=== PATIENT | male | born 1970 | race Caucasian/White ===

== ENCOUNTER 2017-12-25 17:57 | Emergency (ER) | payer BC ==
[2017-12-25 20:28] LABS: Absolute Lymphocytes (CBC) 1.2 K/uL (0.7-4.9); Absolute Monocytes 0.5 K/uL (0.1-1.3); Absolute Neutrophil 3.8 K/uL (1.8-8.0); Basophils % 0.7 % (0-1.3); Eosinophils % 4.5 % (0-4.4); Hematocrit 44.3 % (39.6-49.0); MCH 32.4 pg (27.0-35.0); MCV 95.5 fL (80-100); MPV 8.7 fL (7.6-11.3); Monocytes % 8.8 % (3.3-12.3); RBC Red Blood Cell Count 4.64 M/uL (4.33-5.43)
[2017-12-25 20:32] LABS: Protime INR 1.01
[2017-12-25 20:35] LABS: ALT/SGPT 36 U/L (12-78); AST/SGOT 20 U/L (15-37); Albumin 3.8 g/dL (3.4-5.0); Alkaline Phosphatase 141 U/L (45-117); BUN Blood Urea Nitrogen 15 mg/dL (7-18); Bicarbonate 29 mmol/L (21-32); Bilirubin Direct 0.1 mg/dL (0-0.2); Bilirubin Total 0.5 mg/dL (0.2-1.0); CKMB Creatine Kinase MB < 1.0 ng/mL (0.3-3.6); Creatine Phosphokinase 91 U/L (39-308); Glucose Level 87 mg/dL (74-106); Lipase 167 U/L (73-393); Magnesium 2.2 mg/dL (1.8-2.4); NT PRO-BNP 28 pg/mL (<125); Potassium 4.1 mmol/L (3.5-5.1); Protein, Total 7.9 g/dL (6.4-8.2); Sodium Level 138 mmol/L (136-145); Troponin (Emerg Dept Use Only) < 0.02 ng/mL (0.0-0.045)
--- NOTE | 2017-12-25 20:51 | RAD REPORT ---
EXAM DESCRIPTION: RAD - Chest Single View - 12/25/2017 8:18 pm CLINICAL HISTORY: Left-sided and right-sided chest pain, hemoptysis, fever COMPARISON: August 2016 TECHNIQUE: AP portable chest image was obtained 2013 hours . FINDINGS: No focal infiltrate, mass or acute finding in the right hemithorax. Interstitial markings are prominent but unchanged. Postsurgical changes are present at the left hilum with left hilum eleva tion and left apex opacification. This is a stable presentation. Lung markings in the left lung field are similar to the comparison. Heart and vasculature are normal. No measurable pleural effusion and no pneumothorax. No acute bony abnormality seen. No acute aortic findings suspected. IMPRESSION: No acute cardiopulmonary process. The above detailed chest findings are similar to comparison.
[2017-12-25] MEDS ORDERED: ACETAMINOPHEN 500 MG TAB ONE (20:53)
[2017-12-26 00:04] LABS: Arterial Blood Carboxyhemoglob 1.2 % (0-1.5); Blood Gas Oxyhemoglobin 92.1 % (94-97); Blood O2 Saturation 94.2 % (92-98.5)
--- NOTE | 2017-12-26 00:59 | EDPHYS ---
Physician Documentation [facility] Name: Dheeraj Narvaez Age: 47 yrs Sex: Male : 1970 Arrival Date: 12/25/2017 Time: 17:59 Bed 20 Private MD: ED Physician Eddie Walters HPI: 12/26 01:17 This 47 yrs old Male presents to ER via Ambulatory with complaints of Chest tw4 Pain, Fever, Coughing Up Blood. 01:17 The patient or guardian reports chest pain that is located primarily in the chest tw4 diffusely. Onset: today. The pain does not radiate. Associated signs and symptoms: The patient has no apparent associated signs or symptoms. The chest pain is described as dull. Duration: The patient or guardian reports a single episode, that is now resolved. Modifying factors: The symptoms are alleviated by nothing. the symptoms are aggravated by nothing. Severity of pain: At its worst the pain was mild in the emergency department the pain is unchanged. The patient has not experienced similar symptoms in the past. Historical: - Allergies: 12/25 18:13 Decadron; sv - PMHx: 18:13 blood infection; C DIFF; cardiomegaly; pericarditis; Mx pneumothorax; EF 20%; sv aspergillis; - PSHx: 18:13 heart cath; lung surgeries; Lobectomy; 1/2 left lung removed; sv - Immunization history:: Flu vaccine is not up to date. - Social history:: Smoking status: Patient/guardian denies using tobacco. - Ebola Screening: : No symptoms or risks identified at this time. ROS: 12/26 01:17 Constitutional: Negative for fever, chills, and weight loss, Eyes: Negative for injury, tw4 pain, redness, and discharge, Abdomen/GI: Negative for abdominal pain, nausea, vomiting, diarrhea, and constipation, Back: Negative for injury and pain, : Negative for injury, bleeding, discharge, and swelling, MS/Extremity: Negative for injury and deformity, Skin: Negative for injury, rash, and discoloration, Neuro: Negative for headache, weakness, numbness, tingling, and seizure. Cardiovascular: Positive for chest pain, Negative for edema, orthopnea. Respiratory: Positive for cough, hemoptysis. Exam: 01:17 Constitutional: This is a well developed, well nourished patient who is awake, alert, tw4 and in no acute distress. Head/Face: Normocephalic, atraumatic. Chest/axilla: Normal chest wall appearance and motion. Nontender with no deformity. No lesions are appreciated. Cardiovascular: Regular rate and rhythm with a normal S1 and S2. No gallops, murmurs, or rubs. Normal PMI, no JVD. No pulse deficits. Respiratory: Lungs have equal breath sounds bilaterally, clear to auscultation and percussion. No rales, rhonchi or wheezes noted. No increased work of breathing, no retractions or nasal flaring. Abdomen/GI: Soft, non-tender, with normal bowel sounds. No distension or tympany. No guarding or rebound. No evidence of tenderness throughout. Back: No spinal tenderness. No costovertebral tenderness. Full range of motion. MS/ Extremity: Pulses equal, no cyanosis. Neurovascular intact. Full, normal range of motion. Neuro: Awake and alert, GCS 15, oriented to person, place, time, and situation. Cranial nerves II-XII grossly intact. Motor strength 5/5 in all extremities. Sensory grossly intact. Cerebellar exam normal. Normal gait. Vital Signs: 12/25 18:13 BP 125 / 74; Pulse 96; Resp 22; Temp 99.2; Pulse Ox 93% on R/A; Weight 71.67 kg; Height sv 6 ft. 0 in. (182.88 cm); Pain 8/10; 19:29 BP 130 / 76; Pulse 98; Resp 23 S; Pulse Ox 100% on Venturi mask; jd3 20:51 BP 118 / 80; Pulse 86; Resp 16 S; Temp 98.6(O); Pulse Ox 100% on Simple Mask; jd3 21:40 BP 120 / 80; Pulse 67; Resp 15 S; Pulse Ox 99% on Simple Mask; Pain 8/10; jd3 22:41 BP 129 / 45; Pulse 66; Resp 16 S; Pulse Ox 100% on R/A; Pain 8/10; jd3 23:55 BP 110 / 76; Pulse 59; Resp 16 S; Pulse Ox 97% on R/A; Pain 8/10; jd3 12/26 00:58 BP 121 / 78; Pulse 62; Resp 16 S; Pulse Ox 97% on R/A; jd3 10/28 18:13 Body Mass Index 21.43 (71.67 kg, 182.88 cm) sv 12/25 18:13 Pt placed on 26% venturi mask. Pt refused NC. sv 19:29 on mask per pt's request. jd3 MDM: 19:28 Patient medically screened. tw4 12/26 01:17 Differential diagnosis: acute myocardial infarction, chest wall pain, peptic ulcer tw4 disease, pericarditis, pneumonia, pneumothorax, pulmonary embolus, thoracic aortic disection. Data reviewed: vital signs, nurses notes. Data interpreted: monitor worker: rhythm is normal sinus rhythm, Pulse oximetry: Interpretation: normal. Test interpretation: by ED physician or midlevel provider: ECG. Counseling: I had a detailed discussion with the patient and/or guardian regarding: the historical points, exam findings, and any diagnostic results supporting the discharge/admit diagnosis. 12/25 19:54 Order name: Blood Culture Adult (2) tw4 12/25 19:54 Order name: BMP 4 12/25 19:54 Order name: CBC with Diff 4 12/25 19:54 Order name: Ckmb tw4 12/25 19:54 Order name: CPK 4 12/25 19:54 Order name: D-Dimer 4 12/25 19:54 Order name: Hepatic Function 4 12/25 19:54 Order name: Lipase; Complete Time: 20:38 tw4 12/25 20:38 Interpretation: Within normal limits: LIP 167. tw4 12/25 19:54 Order name: Magnesium; Complete Time: 20:39 4 12/25 20:39 Interpretation: Within normal limits: MG 2.2. 12/25 19:54 Order name: NT PRO-BNP; Complete Time: 20:39 4 12/25 20:39 Interpretation: Within normal limits: NT PRO-BNP 28. 12/25 19:54 Order name: PT-INR; Complete Time: 23:44 4 12/25 19:54 Order name: Ptt, Activated; Complete Time: 23:44 4 12/25 19:54 Order name: Troponin (emerg Dept Use Only); Complete Time: 20:39 4 12/25 20:39 Interpretation: Within normal limits: TROPED < 0.02. tw12/25 19:54 Order name: Blood Culture EDMA 12/25 19:54 Order name: XRAY CXR (1 view); Complete Time: 23:44 tw4 12/25 19:54 Order name: EKG; Complete Time: 19:55 tw4 12/25 19:54 Order name: Cardiac monitoring; Complete Time: 20:13 tw4 12/25 19:54 Order name: EKG - Nurse/Tech; Complete Time: 20:13 tw4 12/25 19:54 Order name: IV Saline Lock; Complete Time: 20:13 tw4 12/25 19:54 Order name: Labs collected and sent; Complete Time: 20:13 tw4 12/25 19:54 Order name: O2 Per Protocol; Complete Time: 20:13 tw4 12/25 19:55 Order name: Basic Metabolic Panel; Complete Time: 20:38 EDMS 12/25 20:38 Interpretation: Normal except: GFR 65. tw4 12/25 19:55 Order name: CBC with Automated Diff; Complete Time: 23:44 EDMS 12/25 19:55 Order name: CKMB Creatine Kinase MB; Complete Time: 20:39 EDMS 12/25 20:39 Interpretation: Within normal limits: CKMB < 1.0. tw4 12/25 19:55 Order name: Creatine Phosphokinase; Complete Time: 20:39 EDMS 12/25 20:39 Interpretation: Within normal limits: CPK 91. tw4 12/25 19:55 Order name: D-Dimer; Complete Time: 23:44 EDMS 12/25 19:55 Order name: Liver (Hepatic) Function; Complete Time: 20:38 EDMS 12/25 20:38 Interpretation: Normal except: ALK 141; GLOB 4.1; A/G 0.9. tw4 12/25 22:04 Order name: CT Chest W/ Con tw4 12/25 23:45 Order name: ABG: on room air pleaes; Complete Time: 00:50 tw4 12/25 19:54 Order name: O2 Sat Monitoring; Complete Time: 20:13 tw4 EC:16 Rate is 76 beats/min. Rhythm is regular. QRS [place] is Normal. NC interval is normal. QRS tw4 interval is normal. QT interval is normal. No Q waves. T waves are Normal. No ST changes noted. Clinical impression: Normal ECG. Interpreted by me. Administered Medications: 12/25 20:50 Drug: Tylenol 1000 mg Route: PO; jd3 21:34 Follow up: Response: No adverse reaction jd3 Disposition: 12/26/17 00:59 Transfer ordered to [facility]. Diagnosis are Hemoptysis, Hypoxemia. - Reason for transfer: Higher level of care. - Accepting physician is Dr Regan. - Condition is Stable. - Problem is new. - Symptoms have improved. Signatures: Dispatcher [employer] Isa Ramirez RN RN sv Davies, Jonathon, RN RN jd3 Wadley, Terrence, MD MD tw4 Corrections: (The following items were deleted from the chart) 12/26 01:41 00:59 12/26/2017 00:59 Transfer ordered to [facility]. Diagnosis is jd3 Hemoptysis; Hypoxemia. Reason for transfer: Higher level of care. Accepting physician is Dr Regan. Condition is Stable. Problem is new. Symptoms have improved. tw4
--- NOTE | 2017-12-26 00:59 | ER ---
Nurse's Notes [facility] Name: Dheeraj Narvaez Age: 47 yrs Sex: Male : 1970 Arrival Date: 12/25/2017 Time: 17:59 Bed 20 Private MD: Diagnosis: Hemoptysis;Hypoxemia Presentation: 12/25 18:04 Presenting complaint: Patient states: left side and right lower side chest pain, sv hemoptysis, fever T max 103 started . Tylenol taken 4 hours ago, Motrin taken 8 hours ago. Transition of care: patient was not received from another setting of care. Onset of symptoms was December 22, 2017. Care prior to arrival: None. 18:04 Method Of Arrival: Ambulatory sv 18:04 Acuity: KAMARI 3 sv 20:14 Risk Assessment: Do you want to hurt yourself or someone else? Patient reports no jd3 desire to harm self or others. Initial Sepsis Screen: Does the patient meet any 2 criteria? No. Patient's initial sepsis screen is negative. Does the patient have a suspected source of infection? Yes: Productive cough/pneumonia. Triage Assessment: 18:04 General: Appears uncomfortable, Behavior is calm, cooperative, appropriate for age. sv Neuro: Level of Consciousness is awake, alert, obeys commands, Oriented to person, place, time, situation, Moves all extremities. Full function. Respiratory: Respiratory effort is even, unlabored, Respiratory pattern is regular, symmetrical. 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 - Social history:: Smoking status: Patient/guardian denies using tobacco. - Ebola Screening: : No symptoms or risks identified at this time. Screenin:22 Abuse screen: Denies threats or abuse. Denies injuries from another. Nutritional aj screening: No deficits noted. Tuberculosis screening: Never had TB. Possible symptoms: recent fever, recent bloody sputum. Fall Risk None identified. Assessment: 18:22 General: Appears in no apparent distress. comfortable, Behavior is calm, cooperative, aj appropriate for age. Pain: Complains of pain in anterior aspect of right upper chest and right breast. Neuro: Level of Consciousness is awake, alert, obeys commands, Oriented to person, place, time, situation, Appropriate for age. Cardiovascular: Capillary refill < 3 seconds in bilateral fingers Patient's skin is warm and dry. Respiratory: Reports cough that is productive, pain with cough pain with movement pain with respiration Airway is patent Respiratory effort is even, unlabored, Respiratory pattern is regular, symmetrical, Onset: The symptoms/episode began/occurred 1 week ago. Derm: Skin is intact, is healthy with good turgor, Skin is pink, warm \T\ dry. normal. 19:28 Reassessment: Patient appears in no apparent distress at this time. No changes from jd3 previously documented assessment. Patient and/or family updated on plan of care and expected duration. Pain level reassessed. Patient is alert, oriented x 3, equal unlabored respirations, skin warm/dry/pink. Respiratory: Breath sounds with wheezes bilaterally. 19:28 Pain: Pain does not radiate. jd3 20:51 Reassessment: Patient appears in no apparent distress at this time. No changes from jd3 previously documented assessment. Patient and/or family updated on plan of care and expected duration. Pain level reassessed. Patient is alert, oriented x 3, equal unlabored respirations, skin warm/dry/pink. 21:41 Reassessment: Patient appears in no apparent distress at this time. No changes from jd3 previously documented assessment. Patient and/or family updated on plan of care and expected duration. Pain level reassessed. Patient is alert, oriented x 3, equal unlabored respirations, skin warm/dry/pink. 22:41 Reassessment: Patient appears in no apparent distress at this time. No changes from jd3 previously documented assessment. Patient and/or family updated on plan of care and expected duration. Pain level reassessed. Patient is alert, oriented x 3, equal unlabored respirations, skin warm/dry/pink. provider notified of pain, no new orders at this time. 23:55 Reassessment: Patient appears in no apparent distress at this time. No changes from jd3 previously documented assessment. Patient and/or family updated on plan of care and expected duration. Pain level reassessed. Patient is alert, oriented x 3, equal unlabored respirations, skin warm/dry/pink. 12/26 00:57 Reassessment: Patient appears in no apparent distress at this time. No changes from jd3 previously documented assessment. Patient and/or family updated on plan of care and expected duration. Pain level reassessed. Patient is alert, oriented x 3, equal unlabored respirations, skin warm/dry/pink. 01:11 Reassessment: report given to Yessica LEMUS at [facility]. provider notified of jd3 pain, no new orders at this time. 01:34 Reassessment: pt reported understanding of need for transfer. report given to [facility].jd3 Vital Signs: 12/25 18:13 BP 125 / 74; Pulse 96; Resp 22; Temp 99.2; Pulse Ox 93% on R/A; Weight 71.67 kg; Height sv 6 ft. 0 in. (182.88 cm); Pain 8/10; 19:29 BP 130 / 76; Pulse 98; Resp 23 S; Pulse Ox 100% on Venturi mask; jd3 20:51 BP 118 / 80; Pulse 86; Resp 16 S; Temp 98.6(O); Pulse Ox 100% on Simple Mask; jd3 21:40 BP 120 / 80; Pulse 67; Resp 15 S; Pulse Ox 99% on Simple Mask; Pain 8/10; jd3 22:41 BP 129 / 45; Pulse 66; Resp 16 S; Pulse Ox 100% on R/A; Pain 8/10; jd3 23:55 BP 110 / 76; Pulse 59; Resp 16 S; Pulse Ox 97% on R/A; Pain 8/10; jd3 12/26 00:58 BP 121 / 78; Pulse 62; Resp 16 S; Pulse Ox 97% on R/A; jd3 12/25 18:13 Body Mass Index 21.43 (71.67 kg, 182.88 cm) sv 12/25 18:13 Pt placed on 26% venturi mask. Pt refused NC. sv 19:29 on mask per pt's request. jd3 ED Course: 17:59 Patient arrived in ED. rg4 18:04 Rebecca Laird, RN is Primary Nurse. aj 18:12 Triage completed. sv 18:14 Arm band placed on. sv 18:22 Alfredo Curiel PA is PHCP. jmm 18:22 Patient has correct armband on for positive identification. Pulse ox on. NIBP on. aj 18:22 Oxygen administration via Venturi mask \T\ 3L/min - 24%. aj 19:28 Eddie Walters MD is Attending Physician. tw4 20:10 Inserted saline lock: 20 gauge in right antecubital area, using aseptic technique. jd3 Blood collected. 20:17 X-ray completed. Portable x-ray completed in exam room. Patient tolerated procedure ls3 well. 20:18 XRAY CXR (1 view) In Process Unspecified. EDMS 22:27 CT Chest W/ Con In Process Unspecified. EDMS 12/26 01:34 No provider procedures requiring assistance completed. Patient transferred, IV remains jd3 in place. Administered Medications: 12/25 20:50 Drug: Tylenol 1000 mg Route: PO; jd3 21:34 Follow up: Response: No adverse reaction jd3 Outcome: 12/26 00:59 ER care complete, transfer ordered by . tw4 01:34 Transferred by ground EMS to [facility], Transfer form completed. jd3 X-rays sent w/ patient. 01:34 Condition: stable 01:34 Instructed on the need for transfer, Demonstrated understanding of instructions. 01:41 Patient left the ED. jd3 Signatures: Dispatcher [employer] Isa Ramirez RN RN sv Myers, Amanda, RN RN aj Mickail, Joel, PA PA jmm Garcia, Rubi 4 Slim Alcazar RN RN jd3 Wadley, Terrence, MD MD tw4 Andre Awad ls3 Corrections: (The following items were deleted from the chart) 12/25 20:59 20:51 BP 118 / 80; Pulse 86bpm; Resp 16bpm; Spontaneous; Pulse Ox 100% Simple Mask; jd3 jd3 22:43 22:41 Reassessment: Patient appears in no apparent distress at this time. No changes jd3 from previously documented assessment. Patient and/or family updated on plan of care and expected duration. Pain level reassessed. Patient is alert, oriented x 3, equal unlabored respirations, skin warm/dry/pink. jd3
--- NOTE | 2017-12-26 08:19 | RAD REPORT ---
EXAM DESCRIPTION: CT - Thorax W/ Con CLINICAL HISTORY: Chest pain PAIN COMPARISON: Chest For Pe Angio dated 09/22/2016; Chest Single View dated 12/25/2017 FINDINGS: Postsurgical changes of a left upper lobectomy noted. The lungs demonstrate no focal infil trate or concerning nodule/mass. Focal areas of dependent pleural thickening involving the right ches t is again noted, unchanged. No pleural or pericardial effusion. No pneumothorax. No axillary, mediastinal or hilar adenopathy. No concerning bony finding. No gross upper abdominal finding. All CT scans are performed using dose optimization technique as appropriate and may include automated exposure control or mA/KV adjustment according to patient size. IMPRESSION: No acute intrathoracic abnormality.
--- NOTE | 2017-12-26 09:08 | EKG ---
Test Date: 2017-12-25 Test Time: 20:01:25 Floor Assembler: SUSHILA MEASUREMENT RESULTS: Intervals: Rate: 78 DE: 150 QRSD: 96 QT: 360 QTc: 410 Murphy: P: -25 DE: 150 QRS: 83 T: 85 INTERPRETIVE STATEMENTS: Normal sinus rhythm Normal ECG Compared to ECG 09/27/2016 17:25:24 No significant changes Electronically Signed On 12-26-17 09:08:02 CDT by Benito Bailon
== END 2017-12-26 01:41 | disposition short-term general hospital (02) ==
LOC: ER 17:57
DX: R04.2 Hemoptysis (principal); R09.02 Hypoxemia; I51.7 Cardiomegaly; Z88.8 Allergy status to other drugs, medicaments and biological substances; Z90.2 Acquired absence of lung [part of]
CPT/HCPCS: 36415; 71045; 71260; 80048; 80076; 82550; 82553; 82805; 83690; 83735; 83880; 84484; 85025; 85379; 85610; 85730; 87040; 93005; 99285; Q9967

== ENCOUNTER 2018-10-25 06:19 | Emergency (ER) | payer BC ==
--- OUTSIDE RECORDS SUMMARY | 2018-10-25 06:22 | XMS REPORT | Clinical Summary ---
:1970 Author Organization [facility] Address [address] [place] [address] Care Team Providers Name Role Phone Unavailable Primary Care Provider Unavailable Allergies Active Allergy Reactions Severity Noted Date Comments Dexamethasone 12/26/2017 Medications Medication Sig Dispensed Refills Start Date End Date Status ipratropium-albute Take 3 mLs by 120 vial 0 12/30/2017 12/25/2018 Active rol (DUO-NEB) 0.5 nebulization every mg-3 mg(2.5 mg 6 (six) hours as base)/3 mL needed for Wheezing nebulizer solution for up to 360 days. benzonatate Take 1 capsule (100 20 capsule 0 12/30/2017 01/06/2018 (TESSALON) 100 MG mg total) by mouth capsule 3 (three) times daily for 7 days. doxycycline Take 1 capsule (100 14 capsule 0 12/30/2017 01/06/2018 (MONODOX) 100 MG mg total) by mouth capsule 2 (two) times daily for 7 days. Active Problems Problem Noted Date Respiratory failure 12/28/2017 Rhinovirus infection 12/27/2017 Hypoxia 12/27/2017 Hemoptysis 12/26/2017 Encounters Date Type Specialty Care Team Description 12/26/2017 - Hospital General Internal AbhijitTawana Hemoptysis (Primary Dx ); 12/30/2017 Encounter Medicine MD Nohemy Hypoxia; Lashay Rincon Rhinovirus infection; MD Omar Tracheobronchitis 12/26/2017 Outside Orders Lab Ch[facility]o [facility]ozo 12/26/2017 Travel after 10/24/2017 Immunizations Name Dates Previously Given Next Due Influenza (Flublok)_0.5ml Qiv_im_egg & Antibiotic 12/26/2017 Free Pf Social History Tobacco Use Types Packs/Day Years Used Date Never Smoker Smokeless Tobacco: Never Used Alcohol Use Drinks/Week oz/Week Comments No Alcohol Habits Answer Date Recorded How often do you have a drink containing alcohol? Never 12/26/2017 How many drinks containing alcohol do you have on a typical Not asked day when you are drinking? How often do you have six or more drinks on one occasion? Not asked Sex Assigned at Date Recorded Not on file Job Start Date Occupation Industry Not on file Not on file Not on file Travel History Travel Start Travel End No recent travel history available. Last Filed Vital Signs Vital Sign Reading Time Taken Blood Pressure 117/75 12/30/2017 11:52 AM CDT Pulse 66 12/30/2017 1:02 PM CDT Temperature 35.9 C (96.6 F) 12/30/2017 11:52 AM CDT Respiratory Rate 17 12/30/2017 1:02 PM CDT Oxygen Saturation 98% 12/30/2017 1:02 PM CDT Inhaled Oxygen Concentration 24% 12/29/2017 7:14 PM CDT Weight 75.4 kg (166 lb 2 oz) 12/26/2017 3:01 AM CDT Height 182.9 cm (6') 12/26/2017 3:01 AM CDT Body Mass Index 22.53 12/26/2017 3:01 AM CDT Plan of Treatment Not on file Procedures Procedure Name Priority Date/Time Associated Comments Diagnosis RHYTHM STRIP - SCAN 06/29/2018 4:29 PM CDT REPORT OF PROCEDURE - 01/03/2018 11:20 ENDOSCOPY SCAN AM TECHNOLOGY INTEGRATION SPECIALIST RHYTHM STRIP - SCAN 01/03/2018 11:20 AM TECHNOLOGY INTEGRATION SPECIALIST ECHOCARDIOGRAM REPORT - 12/30/2017 5:50 SCAN PM CDT 2D ECHO W/ DOPPLER Routine 12/30/2017 1:39 Results for this (CW/PW/COLOR) PM CDT procedure are in the results section. CBC W/PLT COUNT & AUTO Routine 12/30/2017 7:39 Results for this DIFFERENTIAL AM CDT procedure are in the results section. CBC W/PLT COUNT & AUTO Routine 12/30/2017 7:39 Results for this DIFFERENTIAL AM CDT procedure are in the results section. BASIC METABOLIC PANEL Routine 12/30/2017 6:43 Results for this (7) AM CDT procedure are in the results section. CBC W/PLT COUNT & AUTO Routine 12/29/2017 4:34 Results for this DIFFERENTIAL AM CDT procedure are in the results section. BASIC METABOLIC PANEL Routine 12/29/2017 4:34 Results for this (7) AM CDT procedure are in the results section. CBC W/PLT COUNT & AUTO Routine 12/29/2017 4:34 Results for this DIFFERENTIAL AM CDT procedure are in the results section. PHOSPHORUS Routine 12/28/2017 4:43 Results for this AM CDT procedure are in the results section. MAGNESIUM Routine 12/28/2017 4:43 Results for this AM CDT procedure are in the results section. BASIC METABOLIC PANEL Routine 12/28/2017 4:43 Results for this (7) AM CDT procedure are in the results section. SPUTUM CULTURE + GRAM Routine 12/27/2017 9:26 Results for this STAIN PM CDT procedure are in the results section. T SPOT TB Routine 12/27/2017 5:39 Results for this AM CDT procedure are in the results section. PHOSPHORUS Routine 12/27/2017 5:39 Results for this AM CDT procedure are in the results section. MAGNESIUM Routine 12/27/2017 5:39 Results for this AM CDT procedure are in the results section. BASIC METABOLIC PANEL Routine 12/27/2017 5:39 Results for this (7) AM CDT procedure are in the results section. RESPIRATORY PANEL [facility] Routine 12/26/2017 4:10 Results for this PM CDT procedure are in the results section. BLOOD GAS, ARTERIAL STAT 12/26/2017 11:04 Results for this AM CDT procedure are in the results section. APTT MARIA DEL ROSARIO 12/26/2017 10:54 Results for this AM CDT procedure are in the results section. PROTHROMBIN TIME/INR [facility]IA [facility] 12/26/2017 10:54 Results for this AM CDT procedure are in the results section. SPUTUM CULTURE + GRAM Routine 12/26/2017 10:54 Results for this STAIN AM CDT procedure are in the results section. CT CHEST WITH IV STAT 12/26/2017 10:04 Results for this CONTRAST AM CDT procedure are in the results section. SPIN/CONCENTRATION Routine 12/26/2017 9:25 Results for this CHARGE AM CDT procedure are in the results section. FUNGUS CULTURE + SMEAR STAT 12/26/2017 9:25 Results for this AM CDT procedure are in the results section. AFB CULTURE + SMEAR Routine 12/26/2017 9:25 Results for this AM CDT procedure are in the results section. XR CHEST 1 VIEW STAT 12/26/2017 9:20 Results for this PORTABLE/BEDSIDE AM CDT procedure are in the results section. CBC W/PLT COUNT & AUTO Routine 12/26/2017 3:43 Results for this DIFFERENTIAL AM CDT procedure are in the results section. PHOSPHORUS Routine 12/26/2017 3:43 Results for this AM CDT procedure are in the results section. MAGNESIUM Routine 12/26/2017 3:43 Results for this AM CDT procedure are in the results section. BASIC METABOLIC PANEL Routine 12/26/2017 3:43 Results for this (7) AM CDT procedure are in the results section. CBC W/PLT COUNT & AUTO Routine 12/26/2017 3:43 Results for this DIFFERENTIAL AM CDT procedure are in the results section. after 10/24/2017 Results RHYTHM STRIP - SCAN (06/29/2018 4:29 PM CDT)Only the most recent of2 resultswithin the time period is included. Narrative Performed At EKG-SCANNED (01/03/2018 11:20 AM TECHNOLOGY INTEGRATION SPECIALIST) Narrative Performed At ECHOCARDIOGRAM REPORT - SCAN (12/30/2017 5:50 PM CDT) Narrative Performed At 2D Echo W/Doppler(CW/PW/Color) (12/30/2017 1:39 PM CDT) Ejection Fraction [facility] Specimen Narrative Performed At Transthoracic Echocardiography Report (TTE) [facility] Demographics Patient Name DHEERAJ NARVAEZ Date of Study12/30/2017 [id number] Gender Male Visit Number [id number] Race Unknown [id number] m [id number] Number Date of Birth1970 Referring Physician Age47 year(s) SonographerArcadio Kyle RDCS Interpreting Physician LeonilaMD Fellow REY Guaman Procedure Type of Study TTE procedure:DEFINITY CONTRAST , 2DECHO W DOPPLER(CW/PW/COLOR) (Routine) Indications:Respiratory failure or hypoxemia . Clinical History HGB 12.9 HCT 39.5 % Cardiomegaly Pericarditis Pneumothorax Partial Lung removal Contrast Medium: Definity. Height: 72 inches Weight: 75.3 kg (166 lbs) BSA: 1.97 m^2 BMI: 22.51 kg/m^2 HR: 76 bpm BP: 112/65 mmHg Summary IV saline contrast injection was negative for a PFO (patent foramen ovale) at rest and post Valsalva . LV endocardium is well visualized with IV ultrasound enhancing agent. The left ventricle is chamber size (by vol index) is normal (male - LVED vol - 34-74ml/m2). No evidence of LV hypertrophy. All of the LV segments contract normally . LVEF by Archer's method of disk assessment is normal (55-60%) . Normal diastolic function. Estimated peak systolic pressure is at least 35-40 mmHg. Previous Study No prior exam available for comparison. Signature Findings Technical Quality: Technically difficult exam. Rhythm/BPRegular sinus rhythm during the exam. Left Ventricle LV endocardium is well visualized with IV ul trasound enhancing agent. Th e left ventricle is chamber size (by vol index) is normal (male - LVED vol - 34-74ml/m2). No evidence of LV hypertrophy. Al l of the LV segments contract normally . LV EF by Archer's method of disk assessment is no rmal (55-60%) . No rmal diastolic function. Left AtriumLA is incompletely visualized, size based on qu alitative assessment. LA size is normal . Right VentricleThe right ventricular chamber size and systolic fu nction are within normal limits. Right Atrium RA cavity size is normal . Atrial SeptumIV saline contrast injection was negative for a PFO (p atent foramen ovale) at rest and post Valsalva . Aortic Valve Normal AoV structure and function. Mitral Valve Normal MV structure and function. Tricuspid ValveNormal TV structure and function. Es timated peak systolic pressure is at least 35-40 mm Hg. Pulmonic Valve Normal PV structure and function. AortaAortic root size (SInus of Valsalva diameter) is no rmal . PericardiumNo pericardial effusion is visualized. IVC/SVC/PA/PV/PleuralThe estimated RA pressure by IVC dynamics 0-5mmHg . Chambers/Structures Left Ventricle LVIDd: 4.56 cm LVEDV:88.78 ml LVIDs: 4.11 cm LV Septum Diastolic: 0.74 cm LV PW Diastolic: 0.91 cm LV FS: 9.9 % LVEDV Archer's:89.77 ml LVESV Archer's:34.05 ml LVEDVI: 46 ml/m^2 LVEF Archer's: 62.1 % LVESVI: 17 ml/m^2 LVOT Diameter: 2.28 cm Doppler/Quantitative Measurements Mitral Valve MV Peak E-Wave: 0.59 m/sMV Peak A-Wave: 0.54 m/s E/A Ratio: 1.08 Peak Gradient: 1.37 mmHg MV Edwin. Peak: Aortic Valve Peak Velocity: 1.21 m/sMean Velocity: 0.79 m/s Peak Gradient: 5.89 mmHg Mean Gradient: 2.95 mmHg AV Area (continuity): 3.72 cm^2 AV VTI: 20.85 cm AV DVI: 0.91 LVOT Peak Velocity: 0.95 m/s Peak Gradient: 3.58 mmHg Mean Velocity: 0.6 m/sMean Gradient: 1.73 mmHg LVOT Diameter: 2.28 cmLVOT VTI: 19.03 cm LVOT Area: 4.08 cm^2LVOT SV:77.66 ml LVOT CO: 5.9 l/minLVOT CI: 2.99 l/min/m^2 Tricuspid Valve TR Velocity: 2.88 m/s TR Gradient: 33.2 mmHg Procedure Note Interface, External Ris In - 12/30/2017 5:08 PM CDT Transthoracic Echocardiography Report (TTE) Demographics Patient Name DHEERAJ NARVAEZ Date of Study 12/30/2017 Gender Male Visit Number [id number] Race Unknown Room Number 962 Number Date of 1970 Referring Physician Age 47 year(s) 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 Clinical History HGB 12.9 HCT 39.5 % Cardiomegaly Pericarditis Pneumothorax Partial Lung removal Contrast Medium: Definity. Height: 72 inches Weight: 75.3 kg (166 lbs) BSA: 1.97 m^2 BMI: 22.51 kg/m^2 HR: 76 bpm BP: 112/65 mmHg Summary IV saline contrast injection was negative for a PFO (patent foramen ovale) at rest and post Valsalva . LV endocardium is well visualized with IV ultrasound enhancing agent. The left ventricle is chamber size (by vol index) is normal (male - LVED vol - 34-74ml/m2). No evidence of LV hypertrophy. All of the LV segments contract normally . LVEF by Archer's method of disk assessment is normal (55-60%) . Normal diastolic function. Estimated peak systolic pressure is at least 35-40 mmHg. Previous Study No prior exam available for comparison. Signature Findings Technical Quality: Technically difficult exam. Rhythm/BP Regular sinus rhythm during the exam. Left Ventricle LV endocardium is well visualized with IV ultrasound enhancing agent. The left ventricle is chamber size (by vol index) is normal (male - LVED vol - 34-74ml/m2). No evidence of LV hypertrophy. All of the LV segments contract normally . LVEF by Archer's method of disk assessment is normal (55-60%) . Normal diastolic function. Left Atrium LA is incompletely visualized, size based on qualitative assessment. LA size is normal . Right Ventricle The right ventricular chamber size and systolic function are within normal limits. Right Atrium RA cavity size is normal . Atrial Septum IV saline contrast injection was negative for a PFO (patent foramen ovale) at rest and post Valsalva . Aortic Valve Normal AoV structure and function. Mitral Valve Normal MV structure and function. Tricuspid Valve Normal TV structure and function. Estimated peak systolic pressure is at least 35-40 mmHg. Pulmonic Valve Normal PV structure and function. Aorta Aortic root size (SInus of Valsalva diameter) is normal . Pericardium No pericardial effusion is visualized. IVC/SVC/PA/PV/Pleural The estimated RA pressure by IVC dynamics 0-5mmHg . Chambers/Structures Left Ventricle LVIDd: 4.56 cm LVEDV:88.78 ml LVIDs: 4.11 cm LV Septum Diastolic: 0.74 cm LV PW Diastolic: 0.91 cm LV FS: 9.9 % LVEDV Archer's:89.77 ml LVESV Archer's:34.05 ml LVEDVI: 46 ml/m^2 LVEF Archer's: 62.1 % LVESVI: 17 ml/m^2 LVOT Diameter: 2.28 cm Doppler/Quantitative Measurements Mitral Valve MV Peak E-Wave: 0.59 m/s MV Peak A-Wave: 0.54 m/s E/A Ratio: 1.08 Peak Gradient: 1.37 mmHg MV Edwin. Peak: Aortic Valve Peak Velocity: 1.21 m/s Mean Velocity: 0.79 m/s Peak Gradient: 5.89 mmHg Mean Gradient: 2.95 mmHg AV Area (continuity): 3.72 cm^2 AV VTI: 20.85 cm AV DVI: 0.91 LVOT Peak Velocity: 0.95 m/s Peak Gradient: 3.58 mmHg Mean Velocity: 0.6 m/s Mean Gradient: 1.73 mmHg LVOT Diameter: 2.28 cm LVOT VTI: 19.03 cm LVOT Area: 4.08 cm^2 LVOT SV:77.66 ml LVOT CO: 5.9 l/min LVOT CI: 2.99 l/min/m^2 Tricuspid Valve TR Velocity: 2.88 m/s TR Gradient: 33.2 mmHg Performing Organization Address City/State/Zipcode Phone Number [facility] CBC with platelet count + automated diff (12/30/2017 7:39 AM CDT)Only the most recent of3 resultswithin the time period is included. WBC 4.2 3.5 - 10.5 K/L [facility] RBC 4.04 (L) 4.63 - 6.08 M/L [facility] Hemoglobin 12.9 (L) 13.7 - 17.5 GM/DL [facility] Hematocrit 39.5 (L) 40.1 - 51.0 % [facility] MCV 97.8 (H) 79.0 - 92.2 fL [facility] MCH 31.9 25.7 - 32.2 pg [facility] MCHC 32.7 32.3 - 36.5 GM/DL [facility] RDW 12.6 11.6 - 14.4 % [facility] Platelets 170 150 - 450 K/CU MM [facility] MPV 9.9 9.4 - 12.4 fL [facility] nRBC 0 0 - 0 /100 WBC [facility] % Neutros 40 % [facility] % Lymphs 43 % [facility] % Monos 9 % [facility] % Eos 6 % [facility] % Baso 1 % [facility] # Neutros 1.68 (L) 1.78 - 5.38 K/L [facility] # Lymphs 1.81 1.32 - 3.57 K/L [facility] # Monos 0.37 0.30 - 0.82 K/L [facility] # Eos 0.26 0.04 - 0.54 K/L [facility] # Baso 0.05 0.01 - 0.08 K/L [facility] Immature Granulocytes-Relative 1 0 - 1 % [facility] Specimen Blood Performing Organization Address City/State/Zipcode Phone Number [facility] [address] [place] [address] [phone] CENTER Basic Metabolic Panel (12/30/2017 6:43 AM CDT)Only the most recent of5 resultswithin the time period is included. Sodium 137 136 - 145 meq/L [facility] Potassium 4.9Comment: Specimen 3.5 - 5.1 meq/L [facility] moderately hemolyzed [facility] Chloride 106 98 - 107 meq/L [facility] CO2 24 22 - 29 meq/L [facility] BUN 10 7 - 21 mg/dL [facility] Creatinine 0.87Comment: Specimen 0.57 - 1.25 mg/dL [facility] Gl[facility] 95 70 - 105 mg/dL [facility] Calcium 8.9 8.4 - 10.2 mg/dL [facility] EGFR 94Comment: ESTIMATED GFR IS mL/min/1.73 sq m [facility] NOT ACCURATE CREATININE [facility] CLEARANCE IN PREDICTING GLOMERULAR FILTRATION RATE. ESTIMATED GFR IS NOT APPLICABLE FOR DIALYSIS PATIENTS. Specimen Blood Performing Organization Address City/State/Zipcode Phone Number [facility] [address] [place] [address] [phone] CENTER Phosphorus (12/28/2017 4:43 AM CDT)Only the most recent of3 resultswithin the time period is included. Phosphorus 3.5 2.3 - 4.7 mg/dL [facility] Specimen Blood Performing Organization Address City/State/Zipcode Phone Number [place] [phone] [place] [address] CENTER Magnesium (12/28/2017 4:43 AM CDT)Only the most recent of3 resultswithin the time period is included. Magnesium 2.1 1.6 - 2.6 mg/dL [facility] Specimen Blood Performing Organization Address City/[facility]/Zipcode Phone Number [address] [address] [place] Sputum Culture + Gram Stain (12/27/2017 9:26 PM CDT)Only the most recent of2 resultswithin the time period is included. Result 4+ Moraxella catarrhalis (A) [facility] Gram Stain Result 1+ White blood cells seen [facility] Gram Stain Result 0-5 epithelial cells [facility] Gram Stain Result 1+ gram negative rods [facility] Gram Stain Result <1+ gram negative coccobacilli [facility] Gram Stain Result <1+ gram positive cocci in [facility] Specimen Sputum - Expectorated Narrative Performed At 4+ Normal respiratory james present [facility] Performing Organization Address City/[facility]/Zipcode Phone Number [address] [address] [phone] [place] T Spot TB (12/27/2017 5:39 AM CDT) T-Spot TB Negative [facility] Neg Ctrl Spot Count 0 [facility] Panel A Spot 0 [facility] Panel B Spot 0 [facility] Pos Ctrl Spot Ct 0 [facility] Scan Result [facility] Specimen Blood Narrative Performed At Performing Organization Address City/State/Zipcode Phone Number [facility] [place] [address] LAB[address]ATORIES [address] Respiratory Panel [facility] (12/26/2017 4:10 PM CDT) Human Metapneumovirus Not detected Not detected, [facility] Rhinovirus Detected (A)Comment: Not detected, [facility] Assay is not able [facility] MEDICAL differentiate between CENTER Human Rhinovirus and Enterovirus.Droplet isolation. Contact isolation if young infants. Consider stopping antibiotics. Influenza A Not detected Not detected, [facility] INFLUENZA A (NO SUBTYPE) Not detected, [facility] Influenza A subtype H1 Not detected, [facility] Influenza A Subtype H3 Not detected, [facility] Influenza A Subtype Not detected, [place] [id number] [facility] Influenza B Not detected Not detected, [facility] Respiratory Syncytial Not detected Not detected, [facility] Parainfluenza Virus 1 Not detected Not detected, [facility] Parainfluenza Virus 2 Not detected Not detected, [facility] Parainfluenza virus 3 Not detected Not detected, [facility] Parainfluenza Virus 4 Not detected Not detected, [facility] Adenovirus Not detected Not detected, [facility] Coronavirus 229E Not detected Not detected, [facility] Coronavirus HKU1 Not detected Not detected, [facility] Coronavirus NL63 Not detected Not detected, [facility] Coronavirus OC43 Not detected Not detected, [facility] Bordetella Pertussis Not detected Not detected, [facility] Chlamydophila Pneumoniae Not detected Not detected, [facility] Mycoplasma Pneumoniae Not detected Not detected, [facility] Specimen Nasopharyngeal Narrative Performed At Other viruses and bacteria not targeted by [facility] this PCR panel cannot be excluded; therefore clinical correlation and follow up of serology, culture results, and other molecular studies is required. The results are not intended to be used as the sole means for clinical diagnosis or patient management decisions. This sample was tested at the [facility] using the [employer] Film[employer] Respiratory Panel. It is FDA cleared and has been verified and approved by the [facility] for clinical use on nasal swab specimens. It is not FDA-cleared for use on bronchial wash/lavage samples. However, for this sample type, validation was performed and test characteristics were determined and approved, by [facility] for clinical use under the Clinical Laboratory Improvement Amendments (CLIA) of 1988 requirements. Therefore, FDA clearance is not required.This laboratory is CLIA-certified and [employer] [place] [employer] (CAP)-accredited to perform high complexity testing. Performing Organization Address City/[facility]/Zipcode Phone Number [address] [address] [phone] [place] Blood gas, arterial (12/26/2017 11:04 AM CDT) pH, Arterial 7.40 7.35 - 7.45 [facility] pCO2, Arterial 45 35 - 45 mmHg [facility] pO2, Arterial 83 80 - 90 mmHg [facility] O2 Sat, Arterial 96.7 96.0 - 97.0 % [facility] HCO3, Arterial 27 21 - 29 mmol/L [facility] Base Excess, Arterial 1.7 -2.0 - 3.0 mmol/L [facility] Patient Temperature 35.8 C [facility] FIO2 32.0 % [facility] Specimen Blood, Arterial Performing Organization Address City/[facility] Cent[facility]ode Phone Number [address] [address] [phone] [place] aPTT (12/26/2017 10:54 AM CDT) PTT 30.7 22.5 - 36.0 seconds [facility] Specimen Blood Performing Organization Address City/State/Zipcode Phone Number [facility] [address] [place] [address] [phone] [place] Prothrombin time/INR (12/26/2017 10:54 AM CDT) Protime 13.6 11.7 - 14.7 seconds [facility] INR 1.0 <=5.9 [facility] Specimen Blood Narrative Performed At RECOMMENDED COUMADIN/WARFARIN INR THERAPY [facility] RANGES STANDARD DOSE: 2.0 - 3.0 Includes: PROPHYLAXIS for venous thrombosis, systemic embolization; TREATMENT for venous thrombosis and/or pulmonary embolus. HIGH RISK: Target INR is 2.5-3.5 for patients with mechanical heart valves. Performing Organization Address [facility] Centercode Phone Number [place] [phone] [place] [address] [phone] chest with IV contrast (12/26/2017 10:04 AM CDT) Specimen Narrative Performed At FINAL REPORT [employer] [facility] CT scan of the chest. HISTORY: Hemoptysis, heavy smoker. COMPARISON STUDY: Chest x-ray dated December 26, 2017. TECHNIQUE: Contiguous helical slices were acquired through the thorax post administration of intravenous contrast. This exam was performed according to our department dose optimization program which includes automated exposure control, adjustment of the mA and/or kV according to the patient's size and/or use of iterative reconstruction technique. FINDINGS: The mediastinum demonstrates no suspicious masses or adenopathy. Shift is seen towards the left side related to prior surgery. There is right-sided posterior pleural-based calcification. Some pleural thickening is also noted in the right lung base. The tracheobronchial tree is clear with no endobronchial lesions. There are post surgical changes in the left upper lung field. The pulmonary parenchyma demonstrates marked scarring in the left lung apex with postsurgical changes. Volume loss is noted. Scarring is seen in the right lung apex. Bone windows demonstrate no focal abnormality. IMPRESSION: 1. Marked scarring in the left lung apex with postsurgical changes and volume loss. 2. Areas of pleural-based calcification in the right thorax. 3. No definite cause for the patient's hemoptysis identified. Signed: Moshe Fortune MD Report Verified Date/Time:12/26/2017 10:42:02 Reading Location: [facility] B1 C013Y CT Body Reading Room Procedure Note Interface, External Ris In - 12/26/2017 10:44 AM CDT FIN[address] REPORT CT scan of the chest. HISTORY: Hemoptysis, heavy smoker. COMPARISON STUDY: Chest x-ray dated December 26, 2017. TECHNIQUE: Contiguous helical slices were acquired through the thorax post administration of intravenous contrast. This exam was performed according to our department dose optimization program which includes automated exposure control, adjustment of the mA and/or kV according to the patient's size and/or use of iterative reconstruction technique. FINDINGS: The mediastinum demonstrates no suspicious masses or adenopathy. Shift is seen towards the left side related to prior surgery. There is right-sided posterior pleural-based calcification. Some pleural thickening is also noted in the right lung base. The tracheobronchial tree is clear with no endobronchial lesions. There are post surgical changes in the left upper lung field. The pulmonary parenchyma demonstrates marked scarring in the left lung apex with postsurgical changes. Volume loss is noted. Scarring is seen in the right lung apex. Bone windows demonstrate no focal abnormality. IMPRESSION: 1. Marked scarring in the left lung apex with postsurgical changes and volume loss. 2. Areas of pleural-based calcification in the right thorax. 3. No definite cause for the patient's hemoptysis identified. Signed: Moshe Fortune MD Report Verified Date/Time: 12/26/2017 10:42:02 Reading Location: [facility] B1 C013Y CT Body Reading Room Performing Organization Address City/State/Zipcode Phone Number GE RIS SPIN/CONCENTRATION CHARGE (12/26/2017 9:25 AM CDT) Concentration charged Done [facility] Specimen Sputum Performing Organization Address City/State/Zipcode Phone Number [address] [address] CENTER AFB culture + smear (12/26/2017 9:25 AM CDT) Result No acid-fast bacilli isolated in [facility] 42 days CENTER [employer]B Smear No acid fast bacilli seen [facility] Specimen Sputum Performing Organization Address City/State/Zipcode Phone Number [facility] [address] [place] [phone] [place] Fungus culture + smear (12/26/2017 9:25 AM CDT) Result 2+ Alvina dubliniensis [facility] (A)Comment: This is a corrected MEDICAL CENTER organism result. Previous result was Yeast on 01/02/2018 at 1244 [employer] Fungus Smear No fungi seen [facility] Specimen Sputum - Expectorated Performing Organization Address [facility]/Zipcode Phone Number [address] [phone] [place] XR chest 1 view portable / bedside (12/26/2017 9:20 AM CDT) Specimen Narrative Performed At FINAL REPORT GE RIS Chest one view. Clinical history: hemoptysis, several lung surgeries Comparison: No priors Discussion: A frontal chest is provided. Cardiac silhouette is within normal limits. There is opacification in the left upper lung, with evidence of postsurgical change, and volume loss. Right lung is grossly clear. No evidence of pneumothorax, or significant effusion. No acute bony findings. Signed: Nathaniel Blair MD Report Verified Date/Time:12/26/2017 10:18:43 Reading Location: [facility] Radiology Reading Room Procedure Note Interface, External Ris In - 12/26/2017 10:20 AM CDT FINAL REPORT Chest one view. Clinical history: hemoptysis, several lung surgeries Comparison: No priors Discussion: A frontal chest is provided. Cardiac silhouette is within normal limits. There is opacification in the left upper lung, with evidence of postsurgical change, and volume loss. Right lung is grossly clear. No evidence of pneumothorax, or significant effusion. No acute bony findings. Signed: Nathaniel Blair MD Report Verified Date/Time: 12/26/2017 10:18:43 Reading Location: [facility] Radiology Reading Room Performing Organization Address City/State/Zipcode Phone Number GE RIS after 10/24/2017 Insurance Payer Benefit Plan / Subscriber ID Type Phone Address Group BLUE CROSS/BLUE BCBS PPO POS EPO xxxxxxxxxxxx PPO [phone] [address] [place] [address] Advance Directives For more information, please contact:[address] [phone] Code Status Date Activated Date Inactivated Comments Full Code 12/26/2017 2:55 AM This code status was determined by: Patient
--- OUTSIDE RECORDS SUMMARY | 2018-10-25 06:22 | XMS REPORT ---
:1970 [facility] Address [address] [place] [address] Dr. Garibay [address] [place] [id number] Care Team Providers Name Role Phone ORLANDO GARCES Unavailable Unavailable Problems This patient has no known problems. Allergies, Adverse Reactions, Alerts This patient has no known allergies or adverse reactions. Medications This patient has no known medications. Results Test Description Test Time Test Comments Text Results Atomic Results Result Comments AFB CULTURE + SMEAR 2018-02-06 07:07:00 Test Item Value Reference Range Comments CULTURE (BEAKER) (test zgjr=7474) No acid-fast bacilli isolated in 42 days AFB SMEAR (BEAKER) (test jpln=718) No acid fast bacilli seen FUNGUS CULTURE + [id number] 14:22:00 Test Item Value Reference Range Comments CULTURE (BEAKER) (test 2+ Alvina dubliniensisThis is a wtly=5429) corrected organism result. Previous result was Yeast on 01/02/2018 at 1244 FISHER NET FUNGUS SMEAR (BEAKER) No fungi seen (test pzmy=5806) SPUTUM CULTURE + GRAM [id number] 11:42:00 Test Item Value Reference Range Comments CULTURE (BEAKER) 4+ Moraxella catarrhalis (test fjdv=3177) GRAM STAIN RESULT 1+ White blood cells seen (BEAKER) (test tcub=4087) GRAM STAIN RESULT 0-5 epithelial cells (BEAKER) (test jsic=192797) GRAM STAIN RESULT 1+ gram negative rods (BEAKER) (test zwnv=633640) GRAM STAIN RESULT <1+ gram negative (BEAKER) (test coccobacilli qfxg=650562) GRAM STAIN RESULT <1+ gram positive cocci (BEAKER) (test in pairs giif=556224) 4+ Normal respiratory james presentCBC W/PLT COUNT & AUTO [id number] 07:57:00 Test Item Value Reference Range Comments WHITE BLOOD CELL COUNT (BEAKER) (test snsl=349) 4.2 K/ L 3.5-10.5 RED BLOOD CELL COUNT (BEAKER) (test vrlc=135) 4.04 M/ L 4.63-6.08 HEMOGLOBIN (BEAKER) (test dotn=501) 12.9 GM/DL 13.7-17.5 HEMATOCRIT (BEAKER) (test djrz=377) 39.5 % 40.1-51.0 MEAN CORPUSCULAR VOLUME (BEAKER) (test pgkr=063) 97.8 fL 79.0-92.2 MEAN CORPUSCULAR HEMOGLOBIN (BEAKER) (test 31.9 pg 25.7-32.2 gydq=861) MEAN CORPUSCULAR HEMOGLOBIN CONC (BEAKER) (test 32.7 GM/DL 32.3-36.5 vsux=259) RED CELL DISTRIBUTION WIDTH (BEAKER) (test 12.6 % 11.6-14.4 fzpz=706) PLATELET COUNT (BEAKER) (test javx=765) 170 K/CU MM 150-450 MEAN PLATELET VOLUME (BEAKER) (test ohkm=140) 9.9 fL 9.4-12.4 NUCLEATED RED BLOOD CELLS (BEAKER) (test 0 /100 WBC 0-0 qcej=434) NEUTROPHILS RELATIVE PERCENT (BEAKER) (test 40 % oxuq=251) LYMPHOCYTES RELATIVE PERCENT (BEAKER) (test 43 % pkbs=032) MONOCYTES RELATIVE PERCENT (BEAKER) (test 9 % ubjg=794) EOSINOPHILS RELATIVE PERCENT (BEAKER) (test 6 % updz=485) BASOPHILS RELATIVE PERCENT (BEAKER) (test 1 % jeid=853) NEUTROPHILS ABSOLUTE COUNT (BEAKER) (test 1.68 K/ L 1.78-5.38 eqhq=504) LYMPHOCYTES ABSOLUTE COUNT (BEAKER) (test 1.81 K/ L 1.32-3.57 anbe=037) MONOCYTES ABSOLUTE COUNT (BEAKER) (test 0.37 K/ L 0.30-0.82 tjrb=875) EOSINOPHILS ABSOLUTE COUNT (BEAKER) (test 0.26 K/ L 0.04-0.54 vmcz=523) BASOPHILS ABSOLUTE COUNT (BEAKER) (test 0.05 K/ L 0.01-0.08 xnhy=280) IMMATURE GRANULOCYTES-RELATIVE PERCENT (BEAKER) 1 % 0-1 (test viiw=7094) BASIC METABOLIC [id number] 07:32:00 Test Item Value Reference Range Comments SODIUM (BEAKER) (test 137 meq/L 136-145 xzta=298) POTASSIUM (BEAKER) (test 4.9 meq/L 3.5-5.1 Specimen moderately mqyl=073) hemolyzed CHLORIDE (BEAKER) (test 106 meq/L 98-107 awkp=148) CO2 (BEAKER) (test 24 meq/L 22-29 tohm=007) BLOOD UREA NITROGEN 10 mg/dL 7-21 (BEAKER) (test uvqf=109) CREATININE (BEAKER) (test 0.87 mg/dL 0.57-1.25 Specimen moderately csmd=378) hemolyzed GLUCOSE RANDOM (BEAKER) 95 mg/dL 70-105 (test uqjc=264) CALCIUM (BEAKER) (test 8.9 mg/dL 8.4-10.2 uvbv=420) EGFR (BEAKER) (test 94 mL/min/1.73 sq m ESTIMATED GFR IS NOT qnar=6888) ACCURATE CREATININE CLEARANCE IN PREDICTING GLOMERULAR FILTRATION RATE. ESTIMATED GFR IS NOT APPLICABLE FOR DIALYSIS PATIENTS. BASIC METABOLIC [id number] 06:09:00 Test Item Value Reference Range Comments SODIUM (BEAKER) (test 139 meq/L 136-145 vxzz=074) POTASSIUM (BEAKER) (test 4.0 meq/L 3.5-5.1 Specimen slightly hlmo=177) hemolyzed CHLORIDE (BEAKER) (test 107 meq/L 98-107 pzub=007) CO2 (BEAKER) (test 24 meq/L 22-29 smsv=812) BLOOD UREA NITROGEN 15 mg/dL 7-21 (BEAKER) (test veml=053) CREATININE (BEAKER) (test 0.98 mg/dL 0.57-1.25 Specimen slightly dwvv=434) hemolyzed GLUCOSE RANDOM (BEAKER) 117 mg/dL 70-105 (test yqfe=521) CALCIUM (BEAKER) (test 8.8 mg/dL 8.4-10.2 rjgy=062) EGFR (BEAKER) (test 82 mL/min/1.73 sq m ESTIMATED GFR IS NOT eqdh=6485) ACCURATE CREATININE CLEARANCE IN PREDICTING GLOMERULAR FILTRATION RATE. ESTIMATED GFR IS NOT APPLICABLE FOR DIALYSIS PATIENTS. CBC W/PLT COUNT & AUTO [id number] 04:59:00 Test Item Value Reference Range Comments WHITE BLOOD CELL COUNT (BEAKER) (test dvnb=848) 4.5 K/ L 3.5-10.5 RED BLOOD CELL COUNT (BEAKER) (test mjcz=727) 3.89 M/ L 4.63-6.08 HEMOGLOBIN (BEAKER) (test tiae=907) 12.5 GM/DL 13.7-17.5 HEMATOCRIT (BEAKER) (test mutz=788) 38.1 % 40.1-51.0 MEAN CORPUSCULAR VOLUME (BEAKER) (test dizp=630) 97.9 fL 79.0-92.2 MEAN CORPUSCULAR HEMOGLOBIN (BEAKER) (test 32.1 pg 25.7-32.2 wvfq=065) MEAN CORPUSCULAR HEMOGLOBIN CONC (BEAKER) (test 32.8 GM/DL 32.3-36.5 yntb=618) RED CELL DISTRIBUTION WIDTH (BEAKER) (test 12.7 % 11.6-14.4 qgop=458) PLATELET COUNT (BEAKER) (test zfit=088) 160 K/CU MM 150-450 MEAN PLATELET VOLUME (BEAKER) (test xvrz=803) 10.4 fL 9.4-12.4 NUCLEATED RED BLOOD CELLS (BEAKER) (test 0 /100 WBC 0-0 gvrm=766) NEUTROPHILS RELATIVE PERCENT (BEAKER) (test 41 % iflj=949) LYMPHOCYTES RELATIVE PERCENT (BEAKER) (test 43 % ybgz=006) MONOCYTES RELATIVE PERCENT (BEAKER) (test 9 % rrnj=557) EOSINOPHILS RELATIVE PERCENT (BEAKER) (test 6 % dfwm=109) BASOPHILS RELATIVE PERCENT (BEAKER) (test 1 % mryd=567) NEUTROPHILS ABSOLUTE COUNT (BEAKER) (test 1.83 K/ L 1.78-5.38 yynn=975) LYMPHOCYTES ABSOLUTE COUNT (BEAKER) (test 1.91 K/ L 1.32-3.57 blcu=569) MONOCYTES ABSOLUTE COUNT (BEAKER) (test 0.42 K/ L 0.30-0.82 aujx=123) EOSINOPHILS ABSOLUTE COUNT (BEAKER) (test 0.26 K/ L 0.04-0.54 ngxc=145) BASOPHILS ABSOLUTE COUNT (BEAKER) (test 0.05 K/ L 0.01-0.08 wunu=547) IMMATURE GRANULOCYTES-RELATIVE PERCENT (BEAKER) 0 % 0-1 (test ywkb=4672) [id number] 05:44:00 Test Item Value Reference Range Comments PHOSPHORUS (BEAKER) (test mbyc=646) 3.5 mg/dL 2.3-4.7 [id number] 05:44:00 Test Item Value Reference Range Comments MAGNESIUM (BEAKER) (test stge=265) 2.1 mg/dL 1.6-2.6 BASIC METABOLIC [id number] 05:44:00 Test Item Value Reference Range Comments SODIUM (BEAKER) (test 139 meq/L 136-145 qmdh=668) POTASSIUM (BEAKER) (test 4.1 meq/L 3.5-5.1 hvha=220) CHLORIDE (BEAKER) (test 106 meq/L 98-107 rizi=913) CO2 (BEAKER) (test 26 meq/L 22-29 gbyr=927) BLOOD UREA NITROGEN 13 mg/dL 7-21 (BEAKER) (test gvjk=117) CREATININE (BEAKER) (test 0.97 mg/dL 0.57-1.25 nuwq=973) GLUCOSE RANDOM (BEAKER) 105 mg/dL 70-105 (test uijg=829) CALCIUM (BEAKER) (test 8.9 mg/dL 8.4-10.2 oezx=225) EGFR (BEAKER) (test 83 mL/min/1.73 sq m ESTIMATED GFR IS NOT mwkh=8023) ACCURATE CREATININE CLEARANCE IN PREDICTING GLOMERULAR FILTRATION RATE. ESTIMATED GFR IS NOT APPLICABLE FOR DIALYSIS PATIENTS. RESPIRATORY PANEL [id number] 08:56:00 Test Item Value Reference Range Comments HUMAN METAPNEUMOVIRUS Not detected Not detected, (BEAKER) (test qgzu=4727) Equivocal RHINOVIRUS (BEAKER) (test Detected Not detected, Assay is not able dwem=3591) Equivocal differentiate between Human Rhinovirus and Enterovirus.Droplet isolation. Contact isolation if young infants. Consider stopping antibiotics. INFLUENZA A (BEAKER) (test Not detected Not detected, nuqe=6621) Equivocal INFLUENZA A (NO SUBTYPE) Not detected, (test tlje=6269) Equivocal INFLUENZA A SUBTYPE H1 Not detected, (BEAKER) (test nbcs=7002) Equivocal INFLUENZA A SUBTYPE H3 Not detected, (BEAKER) (test szoy=7589) Equivocal INFLUENZA A SUBTYPE H1-2009 Not detected, (BEAKER) (test kens=8153) Equivocal INFLUENZA B (BEAKER) (test Not detected Not detected, otkj=1535) Equivocal RESPIRATORY SYNCYTIAL VIRUS Not detected Not detected, (BEAKER) (test rusr=0903) Equivocal PARAINFLUENZA VIRUS 1 Not detected Not detected, (BEAKER) (test lurx=6063) Equivocal PARAINFLUENZA VIRUS 2 Not detected Not detected, (BEAKER) (test uswu=7566) Equivocal PARAINFLUENZA VIRUS 3 Not detected Not detected, (BEAKER) (test fdvl=7071) Equivocal PARAINFLUENZA VIRUS 4 Not detected Not detected, (BEAKER) (test bvfo=4896) Equivocal ADENOVIRUS (BEAKER) (test Not detected Not detected, pkdo=9697) Equivocal CORONAVIRUS 229E (BEAKER) Not detected Not detected, (test xver=9403) Equivocal CORONAVIRUS HKU1 (BEAKER) Not detected Not detected, (test yrps=3249) Equivocal CORONAVIRUS NL63 (BEAKER) Not detected Not detected, (test vfug=7649) Equivocal CORONAVIRUS OC43 (BEAKER) Not detected Not detected, (test igqp=5306) Equivocal BORDETELLA PERTUSSIS Not detected Not detected, (BEAKER) (test ivxv=9577) Equivocal CHLAMYDOPHILA PNEUMONIAE Not detected Not detected, (BEAKER) (test aoqc=9996) Equivocal MYCOPLASMA PNEUMONIAE Not detected Not detected, (BEAKER) (test iccj=7596) Equivocal Other viruses and bacteria not targeted by this PCR panel cannot be excluded; therefore clinical correlation and follow up of serology, culture results, and other molecular studies is required. The results are not intended to be used as the sole means for clinical diagnosis or patient management decisions. This sample was tested at the [facility] Molecular Diagnostics Laboratory using the MtoVArray Respiratory Panel. It is FDA cleared and has been verified and approved by the [facility] for clinical use on nasal swab specimens. It is not FDA-cleared for use on bronchial wash/lavage samples. However, for this sample type, validation was performed and test characteristics were determined and approved, by [facility] [employer] [facility] laboratory for clinical use under the Clinical Laboratory Improvement Amendments (CLIA) of 1988 requirements. Therefore, FDA clearance isnot required. This laboratory is CLIA-certified and [employer] (CAP)-accredited to perform high complexity testing.SPIN/ CONCENTRATION [id number] 08:24:00 Test Item Value Reference Range Comments CONCENTRATION CHARGED (BEAKER) (test sfmi=6578) Done [id number] 07:34:00 Test Item Value Reference Range Comments MAGNESIUM (BEAKER) (test 2.4 mg/dL 1.6-2.6 Specimen slightly hemolyzed qiqm=587) [id number] 07:34:00 Test Item Value Reference Range Comments PHOSPHORUS (BEAKER) (test 3.5 mg/dL 2.3-4.7 Specimen slightly hemolyzed rinl=166) BASIC METABOLIC [id number] 07:34:00 Test Item Value Reference Range Comments SODIUM (BEAKER) (test 138 meq/L 136-145 nqch=764) POTASSIUM (BEAKER) (test 4.4 meq/L 3.5-5.1 Specimen slightly ppgw=388) hemolyzed CHLORIDE (BEAKER) (test 101 meq/L 98-107 zhfn=851) CO2 (BEAKER) (test 30 meq/L 22-29 craw=250) BLOOD UREA NITROGEN 17 mg/dL 7-21 (BEAKER) (test swxa=750) CREATININE (BEAKER) (test 1.12 mg/dL 0.57-1.25 Specimen slightly lktm=512) hemolyzed GLUCOSE RANDOM (BEAKER) 92 mg/dL 70-105 (test ikey=565) CALCIUM (BEAKER) (test 9.6 mg/dL 8.4-10.2 qbwl=694) EGFR (BEAKER) (test 71 mL/min/1.73 sq m ESTIMATED GFR IS NOT wuzv=9910) ACCURATE CREATININE CLEARANCE IN PREDICTING GLOMERULAR FILTRATION RATE. ESTIMATED GFR IS NOT APPLICABLE FOR DIALYSIS PATIENTS. SPUTUM CULTURE + GRAM [id number] 00:08:00 Test Item Value Reference Range Comments CULTURE (BEAKER) (test Oropharyngeal contamination, fkmn=5052) specimen rejected. Recollect requested. GRAM STAIN RESULT (BEAKER) 1+ WBCs (test qynh=7578) GRAM STAIN RESULT (BEAKER) >25 epithelial cells (test eogy=39891) GRAM STAIN RESULT (BEAKER) 4+ gram positive cocci in chains, (test dufp=69797) pairs and clusters GRAM STAIN RESULT (BEAKER) 2+ gram variable rods (test uuuf=905305) [id number] 11:45:00 Test Item Value Reference Range Comments PARTIAL THROMBOPLASTIN TIME (BEAKER) (test 30.7 seconds 22.5-36.0 rwcg=395) PROTHROMBIN TIME/[id number] 11:24:00 Test Item Value Reference Range Comments PROTIME (BEAKER) (test rldm=588) 13.6 seconds 11.7-14.7 INR (BEAKER) (test lkvw=105) 1.0 <=5.9 RECOMMENDED COUMADIN/WARFARIN INR THERAPY RANGESSTANDARD DOSE: 2.0 - 3.0 Includes: PROPHYLAXIS forvenous thrombosis, systemic embolization; TREATMENT for venous thrombosis and/or pulmonary embolus.HIGH RISK: Target INR is 2.5-3.5 for patients with mechanical heart valves.BLOOD GAS, [id number] 11:20:00 Test Item Value Reference Range Comments PH ARTERIAL (BEAKER) (test cazl=453) 7.40 7.35-7.45 PCO2 ARTERIAL (BEAKER) (test wrut=165) 45 mmHg 35-45 PO2 ARTERIAL (BEAKER) (test fhef=600) 83 mmHg 80-90 O2 SATURATION ARTERIAL (BEAKER) (test pgbx=234) 96.7 % 96.0-97.0 HCO3 ARTERIAL (BEAKER) (test npvn=194) 27 mmol/L 21-29 BASE EXCESS ARTERIAL (BEAKER) (test rkeq=545) 1.7 mmol/L -2.0-3.0 PATIENT TEMPERATURE (BEAKER) (test nzsm=6657) 35.8 C FIO2 (BEAKER) (test ptck=1196) 32.0 % CT, CHEST, WITH [id number] 10:42:00FINAL REPORT CT scan of the chest. HISTORY: Hemoptysis, heavy smoker. COMPARISON STUDY: Chest x-ray dated December 26, 2017. TECHNIQUE: Contiguous helical slices were acquired through the thorax post administration of intravenous contrast. This exam was performed according to ourncpartment dose optimization program which includes automated exposure control, adjustment of the mAand/or kV according to the patient's size and/or [...] apex. Bone windows demonstrate no focal abnormality. IMPRESSION:1. Marked scarring in the left lung apex with postsurgical changes and volume loss.2. Areas of pleural- based calcification in the right thorax.3. No definite cause for the patient's hemoptysis identified. Signed: Moshe Fortune Verified Date/Time: 10:42:02 Reading Location: [facility] C013 CT Body Reading Room RAD, CHEST , 1 VIEW, NON [id number] 10:18:00Reason for exam:->hemoptysis, several lung surgeriesShould this be performed at the bedside?->YesFINAL REPORT Chest one view. Clinical history: hemoptysis, several lung surgeries Comparison: No priors Discussion: A frontal chest is provided. Cardiac silhouette is within normal limits. There is opacification in the left upper lung, with evidence of postsurgical change, andvolume loss. Right lung is grossly clear. No evidence of pneumothorax, or significant effusion. No acute bony findings. Signed: Nathaniel Blair Verified Date/Time: 12/26/2017 10:18: 43 Reading Location: [facility] Radiology Reading Room [id number] 05:13:00 Test Item Value Reference Range Comments PHOSPHORUS (BEAKER) (test szvq=413) 2.5 mg/dL 2.3-4.7 [id number] 05:13:00 Test Item Value Reference Range Comments MAGNESIUM (BEAKER) (test mwki=517) 2.2 mg/dL 1.6-2.6 BASIC METABOLIC [id number] 05:13:00 Test Item Value Reference Range Comments SODIUM (BEAKER) (test 138 meq/L 136-145 ylfp=945) POTASSIUM (BEAKER) (test 3.9 meq/L 3.5-5.1 mgra=000) CHLORIDE (BEAKER) (test 104 meq/L 98-107 zmuk=509) CO2 (BEAKER) (test 27 meq/L 22-29 thlo=848) BLOOD UREA NITROGEN 14 mg/dL 7-21 (BEAKER) (test hbwv=682) CREATININE (BEAKER) (test 0.92 mg/dL 0.57-1.25 fojo=780) GLUCOSE RANDOM (BEAKER) 95 mg/dL 70-105 (test wvlf=500) CALCIUM (BEAKER) (test 9.3 mg/dL 8.4-10.2 fjxm=513) EGFR (BEAKER) (test 89 mL/min/1.73 sq m ESTIMATED GFR IS NOT obfi=3903) ACCURATE CREATININE CLEARANCE IN PREDICTING GLOMERULAR FILTRATION RATE. ESTIMATED GFR IS NOT APPLICABLE FOR DIALYSIS PATIENTS. CBC W/PLT COUNT & AUTO [id number] 04:43:00 Test Item Value Reference Range Comments WHITE BLOOD CELL COUNT (BEAKER) (test yiqw=874) 5.4 K/ L 3.5-10.5 RED BLOOD CELL COUNT (BEAKER) (test jnpj=973) 4.35 M/ L 4.63-6.08 HEMOGLOBIN (BEAKER) (test tign=074) 14.0 GM/DL 13.7-17.5 HEMATOCRIT (BEAKER) (test bpku=554) 42.3 % 40.1-51.0 MEAN CORPUSCULAR VOLUME (BEAKER) (test ccop=694) 97.2 fL 79.0-92.2 MEAN CORPUSCULAR HEMOGLOBIN (BEAKER) (test 32.2 pg 25.7-32.2 ozwq=964) MEAN CORPUSCULAR HEMOGLOBIN CONC (BEAKER) (test 33.1 GM/DL 32.3-36.5 txpf=610) RED CELL DISTRIBUTION WIDTH (BEAKER) (test 12.8 % 11.6-14.4 jlgx=255) PLATELET COUNT (BEAKER) (test uyvn=111) 180 K/CU MM 150-450 MEAN PLATELET VOLUME (BEAKER) (test igot=640) 10.8 fL 9.4-12.4 NUCLEATED RED BLOOD CELLS (BEAKER) (test 0 /100 WBC 0-0 gqlz=788) NEUTROPHILS RELATIVE PERCENT (BEAKER) (test 55 % xmly=357) LYMPHOCYTES RELATIVE PERCENT (BEAKER) (test 28 % ivfe=871) MONOCYTES RELATIVE PERCENT (BEAKER) (test 11 % ykxc=918) EOSINOPHILS RELATIVE PERCENT (BEAKER) (test 6 % lbvq=105) BASOPHILS RELATIVE PERCENT (BEAKER) (test 1 % orem=175) NEUTROPHILS ABSOLUTE COUNT (BEAKER) (test 2.93 K/ L 1.78-5.38 jnlg=870) LYMPHOCYTES ABSOLUTE COUNT (BEAKER) (test 1.48 K/ L 1.32-3.57 kuwl=954) MONOCYTES ABSOLUTE COUNT (BEAKER) (test 0.61 K/ L 0.30-0.82 mzmh=288) EOSINOPHILS ABSOLUTE COUNT (BEAKER) (test 0.30 K/ L 0.04-0.54 xtiz=652) BASOPHILS ABSOLUTE COUNT (BEAKER) (test 0.04 K/ L 0.01-0.08 jjlj=485) IMMATURE GRANULOCYTES-RELATIVE PERCENT (BEAKER) 0 % 0-1 (test rluv=[id number])
[2018-10-25] MEDS ORDERED: KETOROLAC 30 MG/ML INJ ONE (06:56)
--- NOTE | 2018-10-25 07:21 | ER ---
Nurse's Notes [facility] Name: Dheeraj Narvaez Age: 48 yrs Sex: Male : 1970 Arrival Date: 10/25/2018 Time: 06:22 Bed 4 Private MD: Diagnosis: Contusion of right elbow;Fall (on) (from) unspecified stairs and steps Presentation: 10/25 06:43 Presenting complaint: Patient states: states he fell around midnight getting out of his 1 car. He landed on his right arm and is now having pain to his elbow, unable to straighten it, has been icing it at home but the pain has remained. Transition of care: patient was not received from another setting of care. Onset of symptoms was October 25, 2018 at 00:00. Risk Assessment: Do you want to hurt yourself or someone else? Patient reports no desire to harm self or others. Initial Sepsis Screen: Does the patient meet any 2 criteria? No. Patient's initial sepsis screen is negative. Does the patient have a suspected source of infection? No. Patient's initial sepsis screen is negative. Care prior to arrival: None. 06:43 Method Of Arrival: Ambulatory 1 06:43 Acuity: KAMARI 3 lc1 Triage Assessment: 06:50 General: Appears uncomfortable, Behavior is calm, cooperative. Pain: Complains of pain lc1 in right arm and right elbow Pain currently is 7 out of 10 on a pain scale. Quality of pain is described as sharp, Pain began after fall at midnight. EENT: No signs and/or symptoms were reported regarding the EENT system. Neuro: No deficits noted. Cardiovascular: No deficits noted. Respiratory: Parent/caregiver reports the patient having had left upper lobectomy. GI: No signs and/or symptoms were reported involving the gastrointestinal system. : No signs and/or symptoms were reported regarding the genitourinary system. Derm: No signs and/or symptoms reported regarding the dermatologic system. Musculoskeletal: Range of motion: limited in right elbow Tenderness present in right arm Reports pain in right arm and right elbow. Injury Description: s/p fall when getting out of car. Historical: - Allergies: 06:50 Decadron; lc1 - Home Meds: 06:50 None [Active]; lc1 - PMHx: 06:50 aspergillis; blood infection; C DIFF; cardiomegaly; EF 20%; Mx pneumothorax; lc1 pericarditis; Pneumonia; - PSHx: 06:50 Left Upper Lobectomy; lung surgery x4; Left Pectoral Muscle removed; lc1 - Immunization history:: Adult Immunizations up to date. - Social history:: Smoking status: Patient/guardian denies using tobacco. - Ebola Screening: : Patient negative for fever greater than or equal to 101.5 degrees Fahrenheit, and additional compatible Ebola Virus Disease symptoms Patient denies exposure to infectious person Patient denies travel to an Ebola-affected area in the 21 days before illness onset No symptoms or risks identified at this time. Screenin:03 Abuse screen: Denies threats or abuse. Nutritional screening: No deficits noted. lc1 Tuberculosis screening: No symptoms or risk factors identified. Fall Risk None identified. Assessment: 07:03 General: Appears distressed, uncomfortable. General: Behavior is calm, cooperative. lc1 Pain: Complains of pain in right elbow Pain currently is 7 out of 10 on a pain scale. Neuro: No deficits noted. Cardiovascular: No deficits noted. Respiratory: No deficits noted. GI: No signs and/or symptoms were reported involving the gastrointestinal system. : No signs and/or symptoms were reported regarding the genitourinary system. EENT: No signs and/or symptoms were reported regarding the EENT system. Derm: No signs and/or symptoms reported regarding the dermatologic system. Musculoskeletal: Range of motion: limited in right elbow Reports pain in right elbow since midnight. 07:32 Reassessment: Patient appears in no apparent distress at this time. Patient and/or tw2 family updated on plan of care and expected duration. Pain level reassessed. Patient is alert, oriented x 3, equal unlabored respirations, skin warm/dry/pink. Patient states feeling better. Vital Signs: 07:01 BP 121 / 81; Pulse 71; Resp 18; Temp 97.6(O); Pulse Ox 100% on R/A; lc1 ED Course: 06:22 Patient arrived in ED. ds1 06:33 [facility]C [facility] snw 06:33 Shane James MD is Attending Physician. snw 06:47 Triage completed. lc1 07:01 Arm band placed on left wrist. lc1 07:03 Patient has correct armband on for positive identification. Bed in low position. Side lc1 rails up X 1. 07:11 Elbow Right 3 View XRAY In Process Unspecified. EDMS 07:18 Luba Torres, RN is Primary Nurse. tw2 07:32 No provider procedures requiring assistance completed. Patient did not have IV access tw2 during this emergency room visit. Administered Medications: 06:58 Drug: TORadol 30 mg Route: IM; Site: right gluteus; rr5 07:33 Follow up: Response: No adverse reaction; Pain is decreased tw2 Outcome: 07:20 Discharge ordered by . snw 07:32 Discharged to home ambulatory. tw2 07:32 Condition: stable 07:32 Discharge instructions given to patient, Instructed on discharge instructions, follow up and referral plans. medication usage, Demonstrated understanding of instructions, follow-up care, medications, Prescriptions given X 2. 07:33 Patient left the ED. tw2 Signatures: Dispatcher [employer] EDWA Nasima Nelson, CLAIM ANALYST-C CLAIM ANALYST-CsnLainey Sahu ds1 Josy White lc1 Luba Torres, RN RN tw2 Ismael Ocasio RN RN rr5
--- NOTE | 2018-10-25 07:22 | EDPHYS ---
Physician Documentation [facility] Name: Dheeraj Narvaez Age: 48 yrs Sex: Male : 1970 Arrival Date: 10/25/2018 Time: 06:22 Bed 4 Private MD: ED Physician Shane James HPI: 10/25 06:45 This 48 yrs old Male presents to ER via Unassigned with complaints of Arm snw Injury, Fall Injury. 06:45 The patient or guardian complains of decreased range of motion, injury, pain. The snw complaints affect the right elbow. Context: The problem was sustained outdoors, resulted from a fall, the patient slipped, struck right elbow and tailbone. Onset: The symptoms/episode began/occurred suddenly, last night. Associated signs and symptoms: The patient has no apparent associated signs or symptoms. Severity of symptoms: At their worst the symptoms were moderate. The patient has not experienced similar symptoms in the past. The patient has not recently seen a physician. Historical: - Allergies: 06:50 Decadron; lc1 - Home Meds: 06:50 None [Active]; lc1 - PMHx: 06:50 aspergillis; blood infection; C DIFF; cardiomegaly; EF 20%; Mx pneumothorax; lc1 pericarditis; Pneumonia; - PSHx: 06:50 Left Upper Lobectomy; lung surgery x4; Left Pectoral Muscle removed; lc1 - Immunization history:: Adult Immunizations up to date. - Social history:: Smoking status: Patient/guardian denies using tobacco. - Ebola Screening: : Patient negative for fever greater than or equal to 101.5 degrees Fahrenheit, and additional compatible Ebola Virus Disease symptoms Patient denies exposure to infectious person Patient denies travel to an Ebola-affected area in the 21 days before illness onset No symptoms or risks identified at this time. ROS: 06:44 Constitutional: Negative for fever, chills, and weight loss, Eyes: Negative for injury, snw pain, redness, and discharge, ENT: Negative for injury, pain, and discharge, Neck: Negative for injury, pain, and swelling, Cardiovascular: Negative for chest pain, palpitations, and edema, Respiratory: Negative for shortness of breath, cough, wheezing, and pleuritic chest pain, Abdomen/GI: Negative for abdominal pain, nausea, vomiting, diarrhea, and constipation, Back: Negative for injury and pain, : Negative for injury, bleeding, discharge, and swelling, Skin: Negative for injury, rash, and discoloration, Neuro: Negative for headache, weakness, numbness, tingling, and seizure, Psych: Negative for depression, anxiety, suicide ideation, homicidal ideation, and hallucinations. 06:44 MS/extremity: Positive for injury or acute deformity, decreased range of motion, pain, swelling, of the right elbow. Exam: 06:44 Constitutional: This is a well developed, well nourished patient who is awake, alert, snw and in no acute distress. Head/Face: Normocephalic, atraumatic. Eyes: Pupils equal round and reactive to light, extra-ocular motions intact. Lids and lashes normal. Conjunctiva and sclera are non-icteric and not injected. Cornea within normal limits. Periorbital areas with no swelling, redness, or edema. ENT: Nares patent. No nasal discharge, no septal abnormalities noted. Tympanic membranes are normal and external auditory canals are clear. Oropharynx with no redness, swelling, or masses, exudates, or evidence of obstruction, uvula midline. Mucous membranes moist. Neck: Trachea midline, no thyromegaly or masses palpated, and no cervical lymphadenopathy. Supple, full range of motion without nuchal rigidity, or vertebral point tenderness. No Meningismus. Chest/axilla: Normal chest wall appearance and motion. Nontender with no deformity. No lesions are appreciated. Cardiovascular: Regular rate and rhythm with a normal S1 and S2. No gallops, murmurs, or rubs. Normal PMI, no JVD. No pulse deficits. Respiratory: Lungs have equal breath sounds bilaterally, clear to auscultation and percussion. No rales, rhonchi or wheezes noted. No increased work of breathing, no retractions or nasal flaring. Abdomen/GI: Soft, non-tender, with normal bowel sounds. No distension or tympany. No guarding or rebound. No evidence of tenderness throughout. Back: No spinal tenderness. No costovertebral tenderness. Full range of motion. Skin: Warm, dry with normal turgor. Normal color with no rashes, no lesions, and no evidence of cellulitis. Neuro: Awake and alert, GCS 15, oriented to person, place, time, and situation. Cranial nerves II-XII grossly intact. Motor strength 5/5 in all extremities. Sensory grossly intact. Cerebellar exam normal. Normal gait. Psych: Awake, alert, with orientation to person, place and time. Behavior, mood, and affect are within normal limits. 06:44 Musculoskeletal/extremity: ROM: limited active range of motion due to pain, in the right elbow, limited passive range of motion due to pain, Circulation is intact in all extremities. Sensation intact. Vital Signs: 07:01 BP 121 / 81; Pulse 71; Resp 18; Temp 97.6(O); Pulse Ox 100% on R/A; lc1 MDM: 06:33 Patient medically screened. snw 07:26 Data reviewed: vital signs, nurses notes. Data interpreted: Pulse oximetry: on room air snw is 100 %. Interpretation: normal. Counseling: I had a detailed discussion with the patient and/or guardian regarding: the historical points, exam findings, and any diagnostic results supporting the discharge/admit diagnosis, the presence of at least one elevated blood pressure reading (>120/80) during this emergency department visit, radiology results, the need for outpatient follow up, to return to the emergency department if symptoms worsen or persist or if there are any questions or concerns that arise at home. Special discussion: I have referred the patient to see his PCP for further evaluation of high blood pressure. Based on the history and exam findings, there is no indication for further emergent testing or inpatient evaluation. I discussed with the patient/guardian the need to see the orthopedic surgeon for further evaluation of the symptoms. I discussed with the patient/guardian the need to see the primary care provider for further evaluation of the symptoms. 10/25 06:44 Order name: Elbow Right 3 View XRAY snw 10/25 07:17 Order name: Sling; Complete Time: 07:18 gs Administered Medications: 06:58 Drug: TORadol 30 mg Route: IM; Site: right gluteus; rr5 07:33 Follow up: Response: No adverse reaction; Pain is decreased tw2 Disposition: 10/25/18 07:20 Discharged to Home. Impression: Contusion of right elbow, Fall (on) (from) unspecified stairs and steps. - Condition is Stable. - Discharge Instructions: Fall Prevention in the Home, Elbow Contusion. - Prescriptions for Diclofenac Sodium 75 mg Oral Tablet Sustained Release - take 1 tablet by ORAL route 2 times per day; 30 tablet. orphenadrine citrate 100 mg Oral Tablet Sustained Release - take 1 tablet by ORAL route 2 times per day As needed; 20 tablet. - Work release form, Medication Reconciliation Form, Thank You Letter, Antibiotic Education, Prescription Opioid Use form. - Follow up: Private Physician; When: 2 - 3 days; Reason: Recheck today's complaints, Continuance of care, Re-evaluation by your physician. Follow up: Emergency Department; When: As needed; Reason: Worsening of condition. Signatures: Dispatcher [employer] EDMS Nasima Nelson, NORMA-C CONTACT PERSON-Csnw Josy White lc1 Luba Torres RN RN tw2 Shane James MD MD Ismael Ocasio RN RN rr5 Corrections: (The following items were deleted from the chart) 07:33 07:20 10/25/2018 07:20 Discharged to Home. Impression: Contusion of right elbow; Fall tw2 (on) (from) unspecified stairs and steps. Condition is Stable. Discharge Instructions: Fall Prevention in the Home, Elbow Contusion. Prescriptions for Diclofenac Sodium 75 mg Oral Tablet Sustained Release - take 1 tablet by ORAL route 2 times per day; 30 tablet, orphenadrine citrate 100 mg Oral Tablet Sustained Release - take 1 tablet by ORAL route 2 times per day As needed; 20 tablet. and Forms are Medication Reconciliation Form, Thank You Letter, Antibiotic Education, Prescription Opioid Use. Follow up: Private Physician; When: 2 - 3 days; Reason: Recheck today's complaints, Continuance of care, Re-evaluation by your physician. Follow up: Emergency Department; When: As needed; Reason: Worsening of condition. snw
--- NOTE | 2018-10-25 08:25 | RAD REPORT ---
EXAM DESCRIPTION: RAD - Elbow Right 3 View - 10/25/2018 7:09 am CLINICAL HISTORY: Right elbow pain FINDINGS: Bony density along the dorsal aspect of the elbow likely is chronic No fracture or dislocation seen. Examination is somewhat limited as the patient could not fully exten d the elbow. If patient continues to have symptoms to suggest an occult fracture then follow up x-ray in 7 days would recommended
== END 2018-10-25 07:33 | disposition home or self-care (01) ==
LOC: ER 06:19
DX: S50.01XA Contusion of right elbow, initial encounter (principal); W01.10XA Fall on same level from slipping, tripping and stumbling with subsequent striking against unspecified object, initial encounter; Y93.9 Activity, unspecified; Y92.89 Other specified places as the place of occurrence of the external cause; Z88.8 Allergy status to other drugs, medicaments and biological substances; I51.7 Cardiomegaly
CPT/HCPCS: 96372; 99283

== ENCOUNTER 2019-09-13 17:33 | Emergency (ER) | payer BC, SELFPAY ==
--- OUTSIDE RECORDS SUMMARY | 2019-09-13 17:35 | XMS REPORT | Clinical Summary ---
:1970 Author Organization [facility] Address [address] [place] [address] Care Team Providers Name Role Phone Unavailable Primary Care Provider Unavailable Allergies Active Allergy Reactions Severity Noted Date Comments Dexamethasone 12/26/2017 Medications Medication Sig Dispensed Refills Start Date End Date Status ipratropium-albute Take 3 mLs by 120 vial 0 12/30/20172018 rol (DUO-NEB) 0.5 nebulization every mg-3 mg(2.5 mg 6 (six) hours as base)/3 mL needed for Wheezing nebulizer solution for up to 360 days. Active Problems Problem Noted Date Respiratory failure 12/28/2017 Rhinovirus infection 12/27/2017 Hypoxia 12/27/2017 Hemoptysis 12/26/2017 Immunizations Name Dates Previously Given Next Due [...] six or more drinks on one occasion? No t asked Sex Assigned at Date Recorded Not on file Job Start Date Occupation Industry Not on file Not on file Not on file Travel History Travel Start Travel End No recent travel history available. Last Filed Vital Signs Not on file Plan of Treatment Not on file Results Not on fileafter 09/12/2018 Insurance Payer Benefit Plan / Subscriber ID Type Phone Address Group BLUE CROSS/BLUE BCBS PPO POS EPO xxxxxxxxxxxx PPO [phone] [id number] [place] [address] Advance Directives For more information, please contact:[place] [id number] [place], [place] [phone] Code Status Date Activated Date Inactivated Comments Full Code 12/26/2017 2:55 AM This code status was determined by: Patient
--- OUTSIDE RECORDS SUMMARY | 2019-09-13 17:36 | XMS REPORT | Continuity of Care Document ---
:1970 Author Organization [facility] t Address [address] [place] [address] Care Team Providers Name Role Phone NOLVIA GARCES Attending Clinician Unavailable NOLVIA GARCES Admitting Clinician Unavailable Problems Condition Condition Condition Status Onset Resolution Last Treating Co mments Source Name Details Category Date Date Treatment Clinician Date Respirator Respirator Disease Active 2017-[address] y failure y failure 0-31 [facility] - 00:00: Medical 00 [place] Rhinovirus Rhinovirus Disease Active 2017-[address] infection infection 0-30 [facility] - 00:00: Medical 00 [place] Hypoxia Hypoxia Disease Active 2017-[address] [facility] 00 [place] Hemoptysis Hemoptysis Disease Active 2017-[address] [facility] Allergies, Adverse Reactions, Alerts Allergy Allergy Status Severity Reaction(s) Onset Inactive Treating Comm ents Source Name Type Date Date Clinician Dexameth Propensi Active 2017-[address] [facility] St asone ty to 0-29 [facility] - adverse 00:00: Medical reaction 00 Center s Social History Social Habit Start Date Stop Date Quantity Comments Source History SDOH Alcohol [facility] - Std Drinks [facility] History SDOH Alcohol [facility] Binge [facility] Sex Assigned At [facility] History SDOH Alcohol 2017-12-26 2017-12-[address] [facility] - Frequency 00:00:00 00:00:00 [facility] Center Smoking Status Start Date Stop Date Source Never smoker [facility] Ordered Filled Start Stop Current Ordering Indication Dosage Frequency Signature Comments Components Source Medication Medication Date Date Medication? Clinician (SIG) Name Name ipratropium 2017-02 2019- No 3mL Take [address] [facility] [address] -albuterol 03-01 by Diane - (DUO-NEB) 00:00: 23:59 nebulizati M edical 0.5 mg-3 00 :00 on every 6 Cente r mg(2.5 mg (six) base)/3 mL hours as nebulizer needed for solution Wheezing for up to 360 days. Immunizations Ordered Immunization Filled Immunization Date Status Commen ts Source Name Name Influenza 2017-12-[address] [facility] - ([place])_0.5ml 00:00:00 Medical C enter Qiv_im_egg & Antibiotic Free Pf Procedures This patient has no known procedures. Results Test Description Test Time Test Comments Results Result Comments Source AFB CULTURE + SMEAR 2018-02-06 07:07:00 Test Item Value Reference Range Interpretation Comme nts CULTURE (BEAKER) (test code = 1095) No acid-fast bacilli isolated i n 42 days AFB SMEAR (BEAKER) (test code = 994) No acid fast bacilli seen FUNGUS CULTURE + [id number] 14:22:00 Test Item Value Reference Range Interpretation Comments CULTURE (BEAKER) A 2+ Alvina (test code = dubliniensisThi s is a 1095) corrected organ ism result. Previou s result was Yeast on at 1244 [facility] FUNGUS SMEAR No fungi seen (BEAKER) (test code = 1406) SPUTUM CULTURE + GRAM [id number] 11:42:00 Test Item Value Reference Range Interpretation Comments CULTURE A 4+ Moraxella (BEAKER) (test catarrhalis code = 1095) GRAM STAIN 1+ White blood cells RESULT (BEAKER) seen (test code = 1123) GRAM STAIN 0-5 epithelial cells RESULT (BEAKER) (test code = 798382) GRAM STAIN 1+ gram negative RESULT (BEAKER) rods (test code = 349990) GRAM STAIN <1+ gram negative RESULT (BEAKER) coccobacilli (test code = 137675) GRAM STAIN <1+ gram positive RESULT (BEAKER) cocci in pairs (test code = 404986) 4+ Normal respiratory james presentCBC W/PLT COUNT & AUTO DIFFERENTIAL 2017-12-30 07:57:00 Test Item Value Reference Range Interpretation Comments WHITE BLOOD CELL COUNT (BEAKER) 4.2 K/ L 3.5-10.5 (test code = 775) RED BLOOD CELL COUNT (BEAKER) 4.04 M/ L 4.63-6.08 L (test code = 761) HEMOGLOBIN (BEAKER) (test code = 12.9 GM/DL 13.7-17.5 L 410) HEMATOCRIT (BEAKER) (test code = 39.5 % 40.1-51.0 L 411) MEAN CORPUSCULAR VOLUME (BEAKER) 97.8 fL 79.0-92.2 H (test code = 753) MEAN CORPUSCULAR HEMOGLOBIN 31.9 pg 25.7-32.2 (BEAKER) (test code = 751) MEAN CORPUSCULAR HEMOGLOBIN CONC 32.7 GM/DL 32.3-36.5 (BEAKER) (test code = 752) RED CELL DISTRIBUTION WIDTH 12.6 % 11.6-14.4 (BEAKER) (test code = 412) PLATELET COUNT (BEAKER) (test 170 K/CU MM 150-450 code = 756) MEAN PLATELET VOLUME (BEAKER) 9.9 fL 9.4-12.4 (test code = 754) NUCLEATED RED BLOOD CELLS 0 /100 WBC 0-0 (BEAKER) (test code = 413) NEUTROPHILS RELATIVE PERCENT 40 % (BEAKER) (test code = 429) LYMPHOCYTES RELATIVE PERCENT 43 % (BEAKER) (test code = 430) MONOCYTES RELATIVE PERCENT 9 % (BEAKER) (test code = 431) EOSINOPHILS RELATIVE PERCENT 6 % (BEAKER) (test code = 432) BASOPHILS RELATIVE PERCENT 1 % (BEAKER) (test code = 437) NEUTROPHILS ABSOLUTE COUNT 1.68 K/ L 1.78-5.38 L (BEAKER) (test code = 670) LYMPHOCYTES ABSOLUTE COUNT 1.81 K/ L 1.32-3.57 (BEAKER) (test code = 414) MONOCYTES ABSOLUTE COUNT (BEAKER) 0.37 K/ L 0.30-0.82 (test code = 415) EOSINOPHILS ABSOLUTE COUNT 0.26 K/ L 0.04-0.54 (BEAKER) (test code = 416) BASOPHILS ABSOLUTE COUNT (BEAKER) 0.05 K/ L 0.01-0.08 (test code = 417) IMMATURE GRANULOCYTES-RELATIVE 1 % 0-1 PERCENT (BEAKER) (test code = 2801) BASIC METABOLIC [id number] 07:32:00 Test Item Value Reference Range Interpretation Comments SODIUM (BEAKER) 137 meq/L 136-145 (test code = 381) POTASSIUM (BEAKER) 4.9 meq/L 3.5-5.1 Specimen moderately (test code = 379) hemolyzed CHLORIDE (BEAKER) 106 meq/L 98-107 (test code = 382) CO2 (BEAKER) (test 24 meq/L 22-29 code = 355) BLOOD UREA NITROGEN 10 mg/dL 7-21 (BEAKER) (test code = 354) CREATININE (BEAKER) 0.87 mg/dL 0.57-1.25 Specimen moderately (test code = 358) hemolyzed GLUCOSE RANDOM 95 mg/dL 70-105 (BEAKER) (test code = 652) CALCIUM (BEAKER) 8.9 mg/dL 8.4-10.2 (test code = 697) EGFR (BEAKER) (test 94 mL/min/1.73 ESTIMA SERGEI GFR IS code = 1092) sq m NOT ACCURATE CREATININE CLEARANCE IN PREDICTING GLOMERULAR FILTRATION RATE . ESTIMATED GFR I S NOT APPLICABLE FOR DIALYSIS PATIEN TS. BASIC METABOLIC [id number] 06:09:00 Test Item Value Reference Range Interpretation Comments SODIUM (BEAKER) 139 meq/L 136-145 (test code = 381) POTASSIUM (BEAKER) 4.0 meq/L 3.5-5.1 Specimen slightly (test code = 379) hemolyzed CHLORIDE (BEAKER) 107 meq/L 98-107 (test code = 382) CO2 (BEAKER) (test 24 meq/L 22-29 code = 355) BLOOD UREA NITROGEN 15 mg/dL 7-21 (BEAKER) (test code = 354) CREATININE (BEAKER) 0.98 mg/dL 0.57-1.25 Specimen slightly (test code = 358) hemolyzed GLUCOSE RANDOM 117 mg/dL 70-105 H (BEAKER) (test code = 652) CALCIUM (BEAKER) 8.8 mg/dL 8.4-10.2 (test code = 697) EGFR (BEAKER) (test 82 mL/min/1.73 ESTIMA SERGEI GFR IS code = 1092) sq m NOT ACCURATE CREATININE CLEARANCE IN PREDICTING GLOMERULAR FILTRATION RATE . ESTIMATED GFR I S NOT APPLICABLE FOR DIALYSIS PATIEN TS. CBC W/PLT COUNT & AUTO [id number] 04:59:00 Test Item Value Reference Range Interpretation Comments WHITE BLOOD CELL COUNT (BEAKER) 4.5 K/ L 3.5-10.5 (test code = 775) RED BLOOD CELL COUNT (BEAKER) 3.89 M/ L 4.63-6.08 L (test code = 761) HEMOGLOBIN (BEAKER) (test code = 12.5 GM/DL 13.7-17.5 L 410) HEMATOCRIT (BEAKER) (test code = 38.1 % 40.1-51.0 L 411) MEAN CORPUSCULAR VOLUME (BEAKER) 97.9 fL 79.0-92.2 H (test code = 753) MEAN CORPUSCULAR HEMOGLOBIN 32.1 pg 25.7-32.2 (BEAKER) (test code = 751) MEAN CORPUSCULAR HEMOGLOBIN CONC 32.8 GM/DL 32.3-36.5 (BEAKER) (test code = 752) RED CELL DISTRIBUTION WIDTH 12.7 % 11.6-14.4 (BEAKER) (test code = 412) PLATELET COUNT (BEAKER) (test 160 K/CU MM 150-450 code = 756) MEAN PLATELET VOLUME (BEAKER) 10.4 fL 9.4-12.4 (test code = 754) NUCLEATED RED BLOOD CELLS 0 /100 WBC 0-0 (BEAKER) (test code = 413) NEUTROPHILS RELATIVE PERCENT 41 % (BEAKER) (test code = 429) LYMPHOCYTES RELATIVE PERCENT 43 % (BEAKER) (test code = 430) MONOCYTES RELATIVE PERCENT 9 % (BEAKER) (test code = 431) EOSINOPHILS RELATIVE PERCENT 6 % (BEAKER) (test code = 432) BASOPHILS RELATIVE PERCENT 1 % (BEAKER) (test code = 437) NEUTROPHILS ABSOLUTE COUNT 1.83 K/ L 1.78-5.38 (BEAKER) (test code = 670) LYMPHOCYTES ABSOLUTE COUNT 1.91 K/ L 1.32-3.57 (BEAKER) (test code = 414) MONOCYTES ABSOLUTE COUNT (BEAKER) 0.42 K/ L 0.30-0.82 (test code = 415) EOSINOPHILS ABSOLUTE COUNT 0.26 K/ L 0.04-0.54 (BEAKER) (test code = 416) BASOPHILS ABSOLUTE COUNT (BEAKER) 0.05 K/ L 0.01-0.08 (test code = 417) IMMATURE GRANULOCYTES-RELATIVE 0 % 0-1 PERCENT (BEAKER) (test code = 2801) [id number] 05:44:00 Test Item Value Reference Range Interpretation Comments PHOSPHORUS (BEAKER) (test code = 3.5 mg/dL 2.3-4.7 604) [id number] 05:44:00 Test Item Value Reference Range Interpretation Comments MAGNESIUM (BEAKER) (test code = 2.1 mg/dL 1.6-2.6 627) BASIC METABOLIC [id number] 05:44:00 Test Item Value Reference Range Interpretation Comments SODIUM (BEAKER) 139 meq/L 136-145 (test code = 381) POTASSIUM (BEAKER) 4.1 meq/L 3.5-5.1 (test code = 379) CHLORIDE (BEAKER) 106 meq/L 98-107 (test code = 382) CO2 (BEAKER) (test 26 meq/L 22-29 code = 355) BLOOD UREA NITROGEN 13 mg/dL 7-21 (BEAKER) (test code = 354) CREATININE (BEAKER) 0.97 mg/dL 0.57-1.25 (test code = 358) GLUCOSE RANDOM 105 mg/dL 70-105 (BEAKER) (test code = 652) CALCIUM (BEAKER) 8.9 mg/dL 8.4-10.2 (test code = 697) EGFR (BEAKER) (test 83 mL/min/1.73 ESTIMA SERGEI GFR IS code = 1092) sq m NOT ACCURATE CREATININE CLEARANCE IN PREDICTING GLOMERULAR FILTRATION RATE . ESTIMATED GFR I S NOT APPLICABLE FOR DIALYSIS PATIEN TS. RESPIRATORY PANEL [id number] 08:56:00 Test Item Value Reference Range Interpretation Comments HUMAN METAPNEUMOVIRUS Not detected Not detected, (BEAKER) (test code = Equivocal 7970) RHINOVIRUS (BEAKER) Detected Not detected, A Assay i s not able (test code = 2590) Equivocal different iate between Human Rhinovirus and Enterovirus.Luís plet isolation. Cont act isolation if yo kiko infants. Consid er stopping antibiotics. INFLUENZA A (BEAKER) Not detected Not detected, (test code = 2685) Equivocal INFLUENZA A (NO Not detected, SUBTYPE) (test code = Equivocal 3606) INFLUENZA A SUBTYPE H1 Not detected, (BEAKER) (test code = Equivocal 2686) INFLUENZA A SUBTYPE H3 Not detected, (BEAKER) (test code = Equivocal 2687) INFLUENZA A SUBTYPE Not detected, H1-2009 (BEAKER) (test Equivocal code = 3198) INFLUENZA B (BEAKER) Not detected Not detected, (test code = 2688) Equivocal RESPIRATORY SYNCYTIAL Not detected Not detected, VIRUS (BEAKER) (test Equivocal code = 3199) PARAINFLUENZA VIRUS 1 Not detected Not detected, (BEAKER) (test code = Equivocal 2691) PARAINFLUENZA VIRUS 2 Not detected Not detected, (BEAKER) (test code = Equivocal 2692) PARAINFLUENZA VIRUS 3 Not detected Not detected, (BEAKER) (test code = Equivocal 2693) PARAINFLUENZA VIRUS 4 Not detected Not detected, (BEAKER) (test code = Equivocal 3200) ADENOVIRUS (BEAKER) Not detected Not detected, (test code = 2694) Equivocal CORONAVIRUS 229E Not detected Not detected, (BEAKER) (test code = Equivocal 3201) CORONAVIRUS HKU1 Not detected Not detected, (BEAKER) (test code = Equivocal 3202) CORONAVIRUS NL63 Not detected Not detected, (BEAKER) (test code = Equivocal 3203) CORONAVIRUS OC43 Not detected Not detected, (BEAKER) (test code = Equivocal 3204) BORDETELLA PERTUSSIS Not detected Not detected, (BEAKER) (test code = Equivocal 3205) CHLAMYDOPHILA Not detected Not detected, PNEUMONIAE (BEAKER) Equivocal (test code = 3206) MYCOPLASMA PNEUMONIAE Not detected Not detected, (BEAKER) (test code = Equivocal 3207) Other viruses and bacteria not targeted by this PCR panel cannot be excluded; therefore clinical correlation and follow up of serology, culture results, and other molecular studies is required. The results are not intended to be used as the sole means for clinical diagnosis or patient management decisions. This sample was tested at the [facility] using the SMATOOSArray Respiratory Panel. It is FDA cleared and has been verified and approved by the [facility] for clinical use on nasal swab specimens. It is not FDA-cleared for use on bronchial wash/lavage samples. However, for this sample type, validation was performed and test characteristics were determined and approved, by [facility] for clinical use under the Clinical Laboratory Improvement Amendments (CLIA) of 1988 requirements. Therefore, FDA clearance isnot required. This laboratory is CLIA- certified and [employer] (CAP)-accredited to perform high complexity testing.SPIN/CONCENTRATION [id number] 08:24:00 Test Item Value Reference Range Interpretation Comments CONCENTRATION CHARGED (BEAKER) (test Done code = 2657) [id number] 07:34:00 Test Item Value Reference Range Interpretation Comments MAGNESIUM (BEAKER) 2.4 mg/dL 1.6-2.6 Specimen slightly (test code = 627) hemolyzed [id number] 07:34:00 Test Item Value Reference Range Interpretation Comments PHOSPHORUS (BEAKER) 3.5 mg/dL 2.3-4.7 Specimen slightly (test code = 604) hemolyzed BASIC METABOLIC [id number] 07:34:00 Test Item Value Reference Range Interpretation Comments SODIUM (BEAKER) 138 meq/L 136-145 (test code = 381) POTASSIUM (BEAKER) 4.4 meq/L 3.5-5.1 Specimen slightly (test code = 379) hemolyzed CHLORIDE (BEAKER) 101 meq/L 98-107 (test code = 382) CO2 (BEAKER) (test 30 meq/L 22-29 H code = 355) BLOOD UREA NITROGEN 17 mg/dL 7-21 (BEAKER) (test code = 354) CREATININE (BEAKER) 1.12 mg/dL 0.57-1.25 Specimen slightly (test code = 358) hemolyzed GLUCOSE RANDOM 92 mg/dL 70-105 (BEAKER) (test code = 652) CALCIUM (BEAKER) 9.6 mg/dL 8.4-10.2 (test code = 697) EGFR (BEAKER) (test 71 mL/min/1.73 ESTIMA SERGEI GFR IS code = 1092) sq m NOT ACCURATE CREATININE CLEARANCE IN PREDICTING GLOMERULAR FILTRATION RATE . ESTIMATED GFR I S NOT APPLICABLE FOR DIALYSIS PATIEN TS. SPUTUM CULTURE + GRAM [id number] 00:08:00 Test Item Value Reference Range Interpretation Comments CULTURE (BEAKER) Oropharyngeal (test code = 1095) contamination, specimen rejected. Recollect requested. GRAM STAIN RESULT 1+ WBCs (BEAKER) (test code = 1123) GRAM STAIN RESULT >25 epithelial cells (BEAKER) (test code = 86449) GRAM STAIN RESULT 4+ gram positive cocci in (BEAKER) (test code chains, pairs and = 13107) clusters GRAM STAIN RESULT 2+ gram variable rods (BEAKER) (test code = 393568) [id number] 11:45:00 Test Item Value Reference Range Interpretation Comments PARTIAL THROMBOPLASTIN TIME 30.7 seconds 22.5-36.0 (BEAKER) (test code = 760) PROTHROMBIN [id number] 11:24:00 Test Item Value Reference Range Interpretation Comments PROTIME (BEAKER) (test code = 13.6 seconds 11.7-14.7 759) INR (BEAKER) (test code = 370) 1.0 <=5.9 RECOMMENDED COUMADIN/WARFARIN INR THERAPY RANGESSTANDARD DOSE: 2.0 - 3.0 Includes: PROPHYLAXIS forvenous thrombosis, systemic embolization; TREATMENT for venous thrombosis and/or pulmonary embolus.HIGH RISK: Target INR is 2.5-3.5 for patients with mechanical heart valves.BLOOD GAS, [id number] 11:20:00 Test Item Value Reference Range Interpretation Comments PH ARTERIAL (BEAKER) (test code = 7.40 7.35-7.45 383) PCO2 ARTERIAL (BEAKER) (test code 45 mmHg 35-45 = 384) PO2 ARTERIAL (BEAKER) (test code = 83 mmHg 80-90 385) O2 SATURATION ARTERIAL (BEAKER) 96.7 % 96.0-97.0 (test code = 386) HCO3 ARTERIAL (BEAKER) (test code 27 mmol/L 21-29 = 388) BASE EXCESS ARTERIAL (BEAKER) 1.7 mmol/L -2.0-3.0 (test code = 387) PATIENT TEMPERATURE (BEAKER) (test 35.8 C code = 1818) FIO2 (BEAKER) (test code = 1819) 32.0 % CT, CHEST, WITH [id number] 10:42:00FINAL REPORT CT scan of the chest. HISTORY: Hemoptysis, heavy smoker. COMPARISON STUDY: Chest x-ray dated December 26, 2017. TECHNIQUE: Contiguous helical slices were acquired through the thorax post administration of intravenous contrast. This exam was performed [facility] dose optimization [facility] which includes automated exposure [...] postsurgical changes and volume loss.2. Areas of pleural-ba sed calcification in the right thorax.3. No definite cause for the patient's hemoptysis identified. Signed: Moshe Fortune Verified Date/Time: 12/26/2017 10:42:02 Reading Location: [facility] C0[facility] CT Body Reading Room RAD, CHEST, 1 VIEW, NON [id number] 10:18:00Reason for exam:->hemoptysis, several lung surgeriesShould this be performed at the bedside?->YesFINAL REPORT Chest one view. Clinical history: hemoptysis, several lung surge chandrakant Comparison: No priors Discussion: A frontal chest is provided. Cardiac silhouette is within normal limits. There is opacification in the left upper lung, with evidence of postsurgical change, andvolume loss. Right lung is grossly clear. No evidence of pneumothorax, or significant effusion. No acute bony findings. Signed: Nathaniel Blair Verified Date/Time: 12/26/2017 10:18:43 Reading Location: [facility] Radiology Reading Room PHOSPHOR 2017-12-26 05:13:00 Test Item Value Reference Range Interpretation Comments PHOSPHORUS (BEAKER) (test code = 2.5 mg/dL 2.3-4.7 604) [id number] 05:13:00 Test Item Value Reference Range Interpretation Comments MAGNESIUM (BEAKER) (test code = 2.2 mg/dL 1.6-2.6 627) BASIC METABOLIC [id number] 05:13:00 Test Item Value Reference Range Interpretation Comments SODIUM (BEAKER) 138 meq/L 136-145 (test code = 381) POTASSIUM (BEAKER) 3.9 meq/L 3.5-5.1 (test code = 379) CHLORIDE (BEAKER) 104 meq/L 98-107 (test code = 382) CO2 (BEAKER) (test 27 meq/L 22-29 code = 355) BLOOD UREA NITROGEN 14 mg/dL 7-21 (BEAKER) (test code = 354) CREATININE (BEAKER) 0.92 mg/dL 0.57-1.25 (test code = 358) GLUCOSE RANDOM 95 mg/dL 70-105 (BEAKER) (test code = 652) CALCIUM (BEAKER) 9.3 mg/dL 8.4-10.2 (test code = 697) EGFR (BEAKER) (test 89 mL/min/1.73 ESTIMA SERGEI GFR IS code = 1092) sq m NOT ACCURATE CREATININE CLEARANCE IN PREDICTING GLOMERULAR FILTRATION RATE . ESTIMATED GFR I S NOT APPLICABLE FOR DIALYSIS PATIEN TS. CBC W/PLT COUNT & AUTO [id number] 04:43:00 Test Item Value Reference Range Interpretation Comments WHITE BLOOD CELL COUNT (BEAKER) 5.4 K/ L 3.5-10.5 (test code = 775) RED BLOOD CELL COUNT (BEAKER) 4.35 M/ L 4.63-6.08 L (test code = 761) HEMOGLOBIN (BEAKER) (test code = 14.0 GM/DL 13.7-17.5 410) HEMATOCRIT (BEAKER) (test code = 42.3 % 40.1-51.0 411) MEAN CORPUSCULAR VOLUME (BEAKER) 97.2 fL 79.0-92.2 H (test code = 753) MEAN CORPUSCULAR HEMOGLOBIN 32.2 pg 25.7-32.2 (BEAKER) (test code = 751) MEAN CORPUSCULAR HEMOGLOBIN CONC 33.1 GM/DL 32.3-36.5 (BEAKER) (test code = 752) RED CELL DISTRIBUTION WIDTH 12.8 % 11.6-14.4 (BEAKER) (test code = 412) PLATELET COUNT (BEAKER) (test 180 K/CU MM 150-450 code = 756) MEAN PLATELET VOLUME (BEAKER) 10.8 fL 9.4-12.4 (test code = 754) NUCLEATED RED BLOOD CELLS 0 /100 WBC 0-0 (BEAKER) (test code = 413) NEUTROPHILS RELATIVE PERCENT 55 % (BEAKER) (test code = 429) LYMPHOCYTES RELATIVE PERCENT 28 % (BEAKER) (test code = 430) MONOCYTES RELATIVE PERCENT 11 % (BEAKER) (test code = 431) EOSINOPHILS RELATIVE PERCENT 6 % (BEAKER) (test code = 432) BASOPHILS RELATIVE PERCENT 1 % (BEAKER) (test code = 437) NEUTROPHILS ABSOLUTE COUNT 2.93 K/ L 1.78-5.38 (BEAKER) (test code = 670) LYMPHOCYTES ABSOLUTE COUNT 1.48 K/ L 1.32-3.57 (BEAKER) (test code = 414) MONOCYTES ABSOLUTE COUNT (BEAKER) 0.61 K/ L 0.30-0.82 (test code = 415) EOSINOPHILS ABSOLUTE COUNT 0.30 K/ L 0.04-0.54 (BEAKER) (test code = 416) BASOPHILS ABSOLUTE COUNT (BEAKER) 0.04 K/ L 0.01-0.08 (test code = 417) IMMATURE GRANULOCYTES-RELATIVE 0 % 0-1 PERCENT (BEAKER) (test code = 4931)
[2019-09-13] MEDS ORDERED: IBUPROFEN 400 MG TAB ONE (18:29)
--- NOTE | 2019-09-13 18:49 | RAD REPORT ---
EXAM DESCRIPTION: Liam Single View09/13/2019 6:40 pm CLINICAL HISTORY: Shortness of breath COMPARISON: 2018 FINDINGS: Left upper lobe lobectomy. Lungs appear clear of acute infiltrate The heart is normal size IMPRESSION: No acute abnormalities displayed
[2019-09-13] MEDS ORDERED: ACETAMINOPHEN 325 MG TABLET ONE (19:57)
[2019-09-13 20:29] LABS: Absolute Lymphocytes (CBC) 0.8 K/uL (0.7-4.9); Basophils % 2.7 % (0-1.3); Hematocrit 40.7 % (39.6-49.0); Lymphocytes % 29.9 % (15.3-44.8); MPV 9.4 fL (7.6-11.3); RBC Red Blood Cell Count 4.27 M/uL (4.33-5.43)
[2019-09-13 20:33] LABS: Protime INR 1.01
[2019-09-13 20:59] LABS: ALT/SGPT 37 U/L (12-78); Albumin 3.6 g/dL (3.4-5.0); Alkaline Phosphatase 100 U/L (45-117); BUN Blood Urea Nitrogen 9 mg/dL (7-18); Bicarbonate 25 mmol/L (21-32); Bilirubin Direct < 0.1 mg/dL (0-0.2); Bilirubin Total 0.3 mg/dL (0.2-1.0); C-Reactive Protein 4.79 mg/L (<3.00); Glucose Level 90 mg/dL (74-106); Sodium Level 138 mmol/L (136-145); Troponin (Emerg Dept Use Only) < 0.02 ng/mL (0.0-0.045)
[2019-09-13 21:01] LABS: AST/SGOT 35 U/L (15-37); Potassium 3.6 mmol/L (3.5-5.1)
--- NOTE | 2019-09-13 22:43 | ER ---
Nurse's Notes [facility] Name: Dheeraj Narvaez Age: 49 yrs Sex: Male : 1970 Arrival Date: 09/13/2019 Time: 17:35 Bed 7 Private MD: Diagnosis: Viral infection, unspecified;Encounter for screening for other viral diseases;Shortness of breath;Chest pain, unspecified Presentation: 09/12 18:00 Chief complaint: Patient states: fever, back pain radiating between shoulder blades, iw mild cough, lost sense of smell, started last night, has hx of multiple lung surgeries due to spontaneous pneumothorax 3 years ago, lobectomy on left side, fever up to 104.1 last night. Coronavirus screen: Patient reports a cough. Patient reports shortness of breath or difficulty breathing. Patient reports a measured and/or subjective temperature greater than 100.4F. Patient denies travel on a cruise ship or to a country the [facility] currently lists as an affected area. Patient denies contact with known and/or suspected case of COVID-19. Ebola Screen: Patient negative for fever greater than or equal to 101.5 degrees Fahrenheit, and additional compatible Ebola Virus Disease symptoms Patient denies exposure to infectious person. Patient denies travel to an Ebola-affected area in the 21 days before illness onset. No symptoms or risks identified at this time. Initial Sepsis Screen: Does the patient have a suspected source of infection?. Risk Assessment: Do you want to hurt yourself or someone else? Patient reports no desire to harm self or others. Onset of symptoms was September 12, 2019. 18:00 Method Of Arrival: Ambulatory iw 18:00 Acuity: KAMARI 3 iw 19:54 Initial Sepsis Screen: Does the patient meet any 2 criteria? Temp <36.0*C (96.8*F)) or jd3 > 38.3*C (100.9*F). No. Patient's initial sepsis screen is negative. Historical: - Allergies: 18:03 Decadron; iw - Home Meds: 18:03 None [Active]; iw - PMHx: 18:03 aspergillis; blood infection; C DIFF; cardiomegaly; EF 20%; Mx pneumothorax; iw pericarditis; Pneumonia; - PSHx: 18:03 Left Upper Lobectomy; lung surgery x4; Left Pectoral Muscle removed; iw - Immunization history:: Adult Immunizations unknown. - Social history:: Smoking status: unknown. Screenin:53 Abuse screen: Denies threats or abuse. Nutritional screening: No deficits noted. jd3 Tuberculosis screening: No symptoms or risk factors identified. Fall Risk IV access (20 points). Ambulatory Aid- None/Bed Rest/Nurse Assist (0 pts). Gait- Normal/Bed Rest/Wheelchair (0 pts) Mental Status- Oriented to own ability (0 pts). Total Fontaine Fall Scale indicates No Risk (0-24 pts). Assessment: 19:52 General: Appears in no apparent distress. uncomfortable, Behavior is calm, cooperative, jd3 appropriate for age. Pain: Complains of pain in back Quality of pain is described as aching. Neuro: Level of Consciousness is awake, alert, obeys commands, Oriented to person, place, time, situation. Cardiovascular: Capillary refill < 3 seconds Patient's skin is warm and dry. Rhythm is regular. Respiratory: Reports shortness of breath at rest cough that is persistent Airway is patent Respiratory effort is even, unlabored, Respiratory pattern is regular, symmetrical. GI: No signs and/or symptoms were reported involving the gastrointestinal system. : No signs and/or symptoms were reported regarding the genitourinary system. EENT: Reports loss of taste. Derm: Skin is intact, Skin is dry, Skin is normal, Skin temperature is warm. Musculoskeletal: Circulation, motion, and sensation intact. Range of motion: intact in all extremities. 20:58 Reassessment: Patient and/or family updated on plan of care and expected duration. Pain jd3 level reassessed. Patient is alert, oriented x 3, equal unlabored respirations, skin warm/dry/pink. pt reporting continued headache. provider notified. awaiting results. 22:12 Reassessment: Patient appears in no apparent distress at this time. No changes from jd3 previously documented assessment. Patient and/or family updated on plan of care and expected duration. Pain level reassessed. Patient is alert, oriented x 3, equal unlabored respirations, skin warm/dry/pink. 22:55 Reassessment: Patient appears in no apparent distress at this time. Patient and/or jd3 family updated on plan of care and expected duration. Pain level reassessed. Patient is alert, oriented x 3, equal unlabored respirations, skin warm/dry/pink. Patient states feeling better. Vital Signs: 18:03 Temp 101.7(TE); Weight 78.02 kg; Height 6 ft. 0 in. (182.88 cm); iw 19:15 BP 117 / 83; Pulse 83; Resp 20 S; Temp 101.1; Pulse Ox 98% on R/A; jd3 20:58 BP 107 / 77; Pulse 83; Resp 18 S; Pulse Ox 98% on R/A; jd3 22:11 BP 109 / 78; Pulse 82; Resp 18 S; Temp 98.2; Pulse Ox 98% on R/A; jd3 18:03 Body Mass Index 23.33 (78.02 kg, 182.88 cm) iw ED Course: 17:35 Patient arrived in ED. ag5 17:41 Haroldo Martinez PA is PHCP. jr8 17:41 Conrado Elizabeth MD is Attending Physician. jr8 17:47 Jurgen Pendleton, MARIAH is Primary Nurse. bp 18:02 Triage completed. iw 18:03 Arm band placed on. iw 18:32 EKG done, by ED staff, reviewed by Haroldo POLLARD. dh3 18:41 CXR XRAY In Process Unspecified. EDMS 19:35 Missed attempt(s): 20 gauge in right antecubital area. Bleeding controlled, band aid jd3 applied, catheter tip intact. 19:51 Inserted saline lock: 20 gauge in left wrist, using aseptic technique. Blood collected. jd3 19:54 Patient has correct armband on for positive identification. Placed in gown. Bed in low jd3 position. Call light in reach. Side rails up X 1. human resources partner on. Pulse ox on. NIBP on. 21:02 Notified Nurse Practitioner and/or Physician Manager Primary of a critical lab result(s), jd3 D-Dimer of 627. 21:41 CT Chest For PE Angio In Process Unspecified. EDMS 22:56 No provider procedures requiring assistance completed. IV discontinued, intact, jd3 bleeding controlled, No redness/swelling at site. Pressure dressing applied. 09/13 08:33 Health Dept notified/ PUI # [id number]/ Rebecca from lab notified. eb Administered Medications: 09/12 18:15 Drug: Motrin 600 mg Route: PO; bp 19:15 Follow up: Response: No adverse reaction jd3 19:50 Drug: Tylenol 650 mg Route: PO; jd3 20:50 Follow up: Response: No adverse reaction jd3 Outcome: 22:42 Discharge ordered by . jr8 22:56 Discharged to home ambulatory. jd3 22:56 Condition: stable 22:56 Discharge instructions given to patient, Instructed on discharge instructions, follow up and referral plans. medication usage, Demonstrated understanding of instructions, follow-up care, medications, Prescriptions given X 1. 23:08 Patient left the ED. jd3 Addendum: 09/16/2019 16:18 Addendum: COVID-19 Result: Positive result giiven to ED physician to notify pt. s s Physician: Eloy Sinclair MD Physician was able to contact pt and pt was notified of positive COVID-19 swab result. Physician answered pt questions. Signatures: Dispatcher [employer] EDMS Geneva Rosa RN RN Oksana Rodas RN RN ss Roszak, Josh, PA PA Kiya Hubbard [facility] Slim Alcazar RN RN jd3 Peltier, Brian, RN RN bp Botello, Elizabeth eb Gaskin, Ajare 5 Corrections: (The following items were deleted from the chart) 09/12 19:54 19:15 BP 117 / 83; Pulse 83bpm; Resp 20bpm; Spontaneous; Pulse Ox 98% RA; jd3 jd3
--- NOTE | 2019-09-13 22:43 | EDPHYS ---
Physician Documentation [facility] Name: Dheeraj Narvaez Age: 49 yrs Sex: Male : 1970 Arrival Date: 09/13/2019 Time: 17:35 Bed 7 Private MD: ED Physician Conrado Elizabeth HPI: 09/12 18:33 This 49 yrs old Male presents to ER via Ambulatory with complaints of jr8 Shortness Of Breath, Fever. 18:33 The patient has shortness of breath at rest. Onset: The symptoms/episode began/occurred jr8 gradually, 1 week(s) ago. Duration: The symptoms are continuous. The patient's shortness of breath has no apparent modifying factors. Associated signs and symptoms: Pertinent positives: fever, body aches, chills, headache. Severity of symptoms: At their worst the symptoms were moderate in the emergency department the symptoms are unchanged. The patient has not experienced similar symptoms in the past. The patient has not recently seen a physician. Patient stated that he has had fevers, with body aches, chills, headaches, and loss of smell for about a week. Came to ED because he cannot keep fever down . Historical: - Allergies: 18:03 Decadron; iw - Home Meds: 18:03 None [Active]; iw - PMHx: 18:03 aspergillis; blood infection; C DIFF; cardiomegaly; EF 20%; Mx pneumothorax; iw pericarditis; Pneumonia; - PSHx: 18:03 Left Upper Lobectomy; lung surgery x4; Left Pectoral Muscle removed; iw - Immunization history:: Adult Immunizations unknown. - Social history:: Smoking status: unknown. ROS: 18:33 Eyes: Negative for injury, pain, redness, and discharge, ENT: Negative for injury, jr8 pain, and discharge, Neck: Negative for injury, pain, and swelling, Abdomen/GI: Negative for abdominal pain, nausea, vomiting, diarrhea, and constipation, Back: Negative for injury and pain, MS/Extremity: Negative for injury and deformity, Skin: Negative for injury, rash, and discoloration. 18:33 Constitutional: Positive for body aches, chills, fever. 18:33 Cardiovascular: Positive for chest pain, Negative for edema, orthopnea, palpitations, paroxysmal nocturnal dyspnea. 18:33 Respiratory: Positive for dyspnea on exertion, shortness of breath. 18:33 Neuro: Positive for headache. Exam: 18:33 Eyes: Pupils equal round and reactive to light, extra-ocular motions intact. Lids and jr8 lashes normal. Conjunctiva and sclera are non-icteric and not injected. Cornea within normal limits. Periorbital areas with no swelling, redness, or edema. ENT: Nares patent. No nasal discharge, no septal abnormalities noted. Tympanic membranes are normal and external auditory canals are clear. Oropharynx with no redness, swelling, or masses, exudates, or evidence of obstruction, uvula midline. Mucous membranes moist. Neck: Trachea midline, no thyromegaly or masses palpated, and no cervical lymphadenopathy. Supple, full range of motion without nuchal rigidity, or vertebral point tenderness. No Meningismus. Cardiovascular: Regular rate and rhythm with a normal S1 and S2. No gallops, murmurs, or rubs. Normal PMI, no JVD. No pulse deficits. Respiratory: Lungs have equal breath sounds bilaterally, clear to auscultation and percussion. No rales, rhonchi or wheezes noted. No increased work of breathing, no retractions or nasal flaring. Abdomen/GI: Soft, non-tender, with normal bowel sounds. No distension or tympany. No guarding or rebound. No evidence of tenderness throughout. Back: No spinal tenderness. No costovertebral tenderness. Full range of motion. Skin: Warm, dry with normal turgor. Normal color with no rashes, no lesions, and no evidence of cellulitis. MS/ Extremity: Pulses equal, no cyanosis. Neurovascular intact. Full, normal range of motion. Neuro: Awake and alert, GCS 15, oriented to person, place, time, and situation. Cranial nerves II-XII grossly intact. Motor strength 5/5 in all extremities. Sensory grossly intact. Cerebellar exam normal. Normal gait. 18:33 ECG was reviewed by the Attending Physician. Vital Signs: 18:03 Temp 101.7(TE); Weight 78.02 kg; Height 6 ft. 0 in. (182.88 cm); iw 19:15 BP 117 / 83; Pulse 83; Resp 20 S; Temp 101.1; Pulse Ox 98% on R/A; jd3 20:58 BP 107 / 77; Pulse 83; Resp 18 S; Pulse Ox 98% on R/A; jd3 22:11 BP 109 / 78; Pulse 82; Resp 18 S; Temp 98.2; Pulse Ox 98% on R/A; jd3 18:03 Body Mass Index 23.33 (78.02 kg, 182.88 cm) iw MDM: 17:41 Patient medically screened. rust 22:41 Data reviewed: vital signs, nurses notes, lab test result(s), EKG, radiologic studies, rust CT scan, plain films. Data interpreted: Pulse oximetry: on room air is 98 %. Interpretation: normal. Counseling: I had a detailed discussion with the patient and/or guardian regarding: the historical points, exam findings, and any diagnostic results supporting the discharge/admit diagnosis, lab results, radiology results, the need for outpatient follow up, a family practitioner, to return to the emergency department if symptoms worsen or persist or if there are any questions or concerns that arise at home. ED course: Told patient to remain in quarantine until COVID results come back. If worse to come back . 09/12 18:09 Order name: D-Dimer; Complete Time: 21: 09/12 18:09 Order name: Blood Culture Adult (2) rust 09/12 18:09 Order name: BMP; Complete Time: 21:27 rust 09/12 18:09 Order name: C-Reactive Protein; Complete Time: 21:27 09/12 18:09 Order name: CBC with Diff; Complete Time: 21:00 rust 09/12 18:09 Order name: COVID-19 rust 09/12 18:09 Order name: Lactate; Complete Time: 20:41 rust 09/12 18:09 Order name: LFT's; Complete Time: 21:27 rust 09/12 18:09 Order name: Procalcitonin; Complete Time: 21:27 rust 09/12 18:09 Order name: PT-INR; Complete Time: 21:01 rust 09/12 18:09 Order name: Ptt, Activated; Complete Time: 21:01 09/12 18:09 Order name: Troponin (emerg Dept Use Only); Complete Time: 21:27 rust 09/12 18:09 Order name: CXR XRAY; Complete Time: 18:52 09/12 21:00 Order name: CT Chest For PE Angio 09/12 18:09 Order name: EKG; Complete Time: 18:10 09/12 18:09 Order name: Cardiac monitoring; Complete Time: 18:49 09/12 18:09 Order name: Document PUI#; Complete Time: 19:51 09/12 18:09 Order name: Droplet/Contact Precautions; Complete Time: 18:12 09/12 18:09 Order name: EKG - Nurse/Tech; Complete Time: 18:49 09/12 18:09 Order name: IV Start; Complete Time: 19:51 09/12 18:09 Order name: Labs collected and sent; Complete Time: 20:32 09/12 18:09 Order name: Notify Health Dept [phone]/ ; Complete Time: 19:51 09/12 18:09 Order name: O2 Per Protocol; Complete Time: 18:12 09/12 18:09 Order name: O2 Sat Monitoring; Complete Time: 18:12 EC:33 Rate is 87 beats/min. Rhythm is regular, Sinus Rhythm. QRS Danese is Normal. SD interval jr8 is normal at 172 msec. QRS interval is normal at 92 msec. QT interval is normal at 411 msec. No Q waves. T waves are Inverted in leads aVL, V1, V2. No ST changes noted. Clinical impression: NSR w/ Non-specific ST/T Changes. Interpreted by me. Reviewed by me. Administered Medications: 18:15 Drug: Motrin 600 mg Route: PO; bp 19:15 Follow up: Response: No adverse reaction jd3 19:50 Drug: Tylenol 650 mg Route: PO; jd3 20:50 Follow up: Response: No adverse reaction jd3 Disposition: 09/13/19 22:42 Discharged to Home. Impression: Viral infection, unspecified, Encounter for screening for other viral diseases, Shortness of breath, Chest pain, unspecified. - Condition is Stable. - Discharge Instructions: Nonspecific Chest Pain, Viral Respiratory Infection, COVID-19. - Prescriptions for Prednisone 20 mg Oral Tablet - take 1 tablet by ORAL route once daily for 7 days; 7 tablet. - Medication Reconciliation Form, Thank You Letter, Antibiotic Education, Prescription Opioid Use form. - Follow up: Private Physician; When: 1 week; Reason: Recheck today's complaints, Continuance of care, Re-evaluation by your physician. - Problem is new. - Symptoms have improved. Addendum: 09/17/2019 07:21 Co-signature as Attending Physician, Conrado Elizabeth MD. r n Signatures: Dispatcher [employer] Geneva Lang RN RN iw Nieto, Roman, MD MD rn Roszak, Josh, PA PA jr8 Slim Alcazar RN RN jJurgen Tirado RN RN bp Corrections: (The following items were deleted from the chart) 09/12 23:08 22:42 09/13/2019 22:42 Discharged to Home. Impression: Viral infection, unspecified; jd3 Encounter for screening for other viral diseases; Shortness of breath; Chest pain, unspecified. Condition is Stable. Forms are Medication Reconciliation Form, Thank You Letter, Antibiotic Education, Prescription Opioid Use. Follow up: Private Physician; When: 1 week; Reason: Recheck today's complaints, Continuance of care, Re-evaluation by your physician. Problem is new. Symptoms have improved. jr8
[2019-09-14 00:16] VITALS: O2SAT 98
[2019-09-14 00:18] VITALS: BP 109/78; TEMP 98.2
--- NOTE | 2019-09-14 06:46 | EKG ---
Test Date: 2019-09-13 Test Time: 18:32:17 Grapple Operator: NEFTALY MEASUREMENT RESULTS: Intervals: Rate: 87 LA: 172 QRSD: 92 QT: 342 QTc: 411 [place]: P: 54 LA: 172 QRS: 81 T: 80 INTERPRETIVE STATEMENTS: Normal sinus rhythm Incomplete right bundle branch block Borderline ECG Compared to ECG 12/25/2017 20:01:25 Incomplete right bundle-branch block now present Electronically Signed On 09-14-19 06:45:35 CDT by Nando Falcon
--- NOTE | 2019-09-14 20:22 | RAD REPORT ---
EXAM DESCRIPTION: CT - Chest For Pe Angio - 09/14/2019 6:24 am CLINICAL HISTORY: Elevated DD;Chest pain;Dyspnea COMPARISON: None Available TECHNIQUE: Multiple helical axial tomographic images were obtained of the chest following administra tion of intravenous contrast per angiographic protocol. MIP reformatted images were obtained. This exam was performed according to our departmental dose-optimization program, which includes autom ated exposure control, adjustment of the mA and/or kV according to patient size and/or use of iterati ve reconstruction technique. FINDINGS: Thyroid gland: unremarkable. Axilla: unremarkable. Pulmonary arteries: Pulmonary arteries appear patent. No evidence of pulmonary embolism. Aorta: No evidence of aortic dissection or aneurysm. Mediastinum: Unremarkable. No adenopathy. Heart: Heart is normal in size. Lungs/airways: There are changes suggestive of prior left upper lobectomy. There are a few patchy vel undglass opacities in both lower lobes. Airways are patent. There is suture-like material in the righ t apex suggesting prior procedure. Pleural spaces: No significant pleural effusion. No pneumothorax. There is a linear area of hyperdens ity in the posterior right chest adjacent to the posterior right lower lobe which may represent pleur al thickening. Osseous: Unremarkable. Soft tissues: Unremarkable. Visualized abdomen: Unremarkable. IMPRESSION: 1. No evidence of pulmonary embolism. 2. Patchy ground glass opacities in both lower lobes suggestive of an infectious or inflammatory proc ess. 3. Dense material adjacent to the posterior right lower lobe which may represent pleural thickening a nd can be followed up as appropriate. Electronically signed by: Higinio Ortiz MD 09/13/2019 10:30 PM CDT Due to temporary technical issues with the PACS/Fluency reporting system, reports are being signed by the in house radiologist without review as a courtesy to ensure prompt reporting. The interpreting r adiologist is fully responsible for the content of the report.
== END 2019-09-13 23:08 | disposition home or self-care (01) ==
LOC: ER 17:33
DX: U07.1 COVID-19 (principal); B34.9 Viral infection, unspecified; R07.9 Chest pain, unspecified; R06.02 Shortness of breath; Z90.2 Acquired absence of lung [part of]; Z88.8 Allergy status to other drugs, medicaments and biological substances
CPT/HCPCS: 36415; 71045; 71275; 80048; 80076; 83605; 84145; 84484; 85025; 85379; 85610; 85730; 86140; 87040; 93005; 99285; Q9967; U0001

== ENCOUNTER 2021-03-03 15:52 | Emergency (ER) | payer SELFPAY ==
--- OUTSIDE RECORDS SUMMARY | 2021-03-03 15:55 | XMS REPORT | Continuity of Care Document ---
:1970 Author Organization [facility] t Address [facility] [place] [place] [id number] Care Team Providers Name Role Phone NOLVIA GARCES Attending Clinician Unavailable NOLVIA GARCES Admitting Clinician Unavailable Problems This patient has no known problems. Allergies, Adverse Reactions, Alerts This patient has no known allergies or adverse reactions. Medications This patient has no known medications. Procedures This patient has no known procedures. Results Test Description Test Time Test Comments Results Result Comments Source AFB CULTURE + SMEAR 2018-02-06 07:07:00 Test Item Value Reference Range Interpretation Comme nts CULTURE (BEAKER) (test code = 1095) No acid-fast bacilli isolated i n 42 days AFB SMEAR (BEAKER) (test code = 994) No acid fast bacilli seen FUNGUS CULTURE + [id number] 14:22:00 Test Item Value Reference Range Interpretation Comments CULTURE (BEAKER) A 2+ Alvina (test code = dubliniensisThi s is a 1095) corrected organ ism result. Previou s result was Yeast on at 1244 SILK SPOOLER FUNGUS SMEAR No fungi seen (BEAKER) (test code = 1406) SPUTUM CULTURE + GRAM [id number] 11:42:00 Test Item Value Reference Range Interpretation Comments CULTURE A 4+ Moraxella (BEAKER) (test catarrhalis code = 1095) GRAM STAIN 1+ White blood cells RESULT (BEAKER) seen (test code = 1123) GRAM STAIN 0-5 epithelial cells RESULT (BEAKER) (test code = 511569) GRAM STAIN 1+ gram negative RESULT (BEAKER) rods (test code = 579945) GRAM STAIN <1+ gram negative RESULT (BEAKER) coccobacilli (test code = 539354) GRAM STAIN <1+ gram positive RESULT (BEAKER) cocci in pairs (test code = 407043) 4+ [facility]O DIFFERENTIAL 2017-12-30 07:57:00 [...] (BEAKER) (test code = 2801) BASIC METABOLIC [id number] 07:32:00 Test Item Value Reference Range Interpretation [...] APPLICABLE FOR DIALYSIS PATIEN TS. BASIC METABOLIC [id number] 06:09:00 Test Item Value Reference Range Interpretation [...] PATIEN TS. CBC W/PLT COUNT & AUTO [id number] 04:59:00 Test Item Value Reference Range Interpretation [...] 0-1 PERCENT (BEAKER) (test code = 2801) [id number] 05:44:00 Test Item Value Reference Range Interpretation Comments PHOSPHORUS (BEAKER) (test code = 3.5 mg/dL 2.3-4.7 604) [id number] 05:44:00 Test Item Value Reference Range Interpretation Comments MAGNESIUM (BEAKER) (test code = 2.1 mg/dL 1.6-2.6 627) BASIC METABOLIC [id number] 05:44:00 Test Item Value Reference Range Interpretation [...] APPLICABLE FOR DIALYSIS PATIEN TS. RESPIRATORY PANEL [id number] 08:56:00 Test Item Value Reference Range Interpretation Comments HUMAN METAPNEUMOVIRUS Not detected Not detected, (BEAKER) (test code = Equivocal 9693) RHINOVIRUS (BEAKER) Detected Not detected, A Assay i s not able (test code = 3716) Equivocal different iate between Human Rhinovirus and [...] decisions. This sample was tested at the [facility] using the ChiScan Respiratory Panel. It is FDA cleared and has been verified and approved by the [facility] for clinical use on nasal swab specimens. It is not FDA-cleared for use on bronchial wash/lavage samples. However, for this sample type, validation was performed and test characteristics were determined and approved, by [facility] for clinical use under the Clinical Laboratory Improvement Amendments (CLIA) of 1988 requirements. Therefore, FDA clearance isnot required. This laboratory is CLIA- certified and [employer] (CAP)-accredited to perform high complexity testing.SPIN/CONCENTRATION [id number] 08:24:00 Test Item Value Reference Range Interpretation Comments CONCENTRATION CHARGED (BEAKER) (test Done code = 2657) [id number] 07:34:00 Test Item Value Reference Range Interpretation Comments MAGNESIUM (BEAKER) 2.4 mg/dL 1.6-2.6 Specimen slightly (test code = 627) hemolyzed [id number] 07:34:00 Test Item Value Reference Range Interpretation Comments PHOSPHORUS (BEAKER) 3.5 mg/dL 2.3-4.7 Specimen slightly (test code = 604) hemolyzed BASIC METABOLIC [id number] 07:34:00 Test Item Value Reference Range Interpretation [...] DIALYSIS PATIEN TS. SPUTUM CULTURE + GRAM [id number] 00:08:00 Test Item Value Reference Range Interpretation Comments CULTURE (BEAKER) Oropharyngeal (test code = 1095) contamination, specimen rejected. Recollect requested. GRAM STAIN RESULT 1+ WBCs (BEAKER) (test code = 1123) GRAM STAIN RESULT >25 epithelial cells (BEAKER) (test code = 36558) GRAM STAIN RESULT 4+ gram positive cocci in (BEAKER) (test code chains, pairs and = 19961) clusters GRAM STAIN RESULT 2+ gram variable rods (BEAKER) (test code = 517958) [id number] 11:45:00 Test Item Value Reference Range Interpretation Comments PARTIAL THROMBOPLASTIN TIME 30.7 seconds 22.5-36.0 (BEAKER) (test code = 760) PROTHROMBIN [id number] 11:24:00 Test Item Value Reference Range Interpretation Comments PROTIME (BEAKER) (test code = 13.6 seconds 11.7-14.7 759) INR (BEAKER) (test code = 370) 1.0 <=5.9 RECOMMENDED COUMADIN/WARFARIN INR THERAPY RANGESSTANDARD DOSE: 2.0 - 3.0 Includes: PROPHYLAXIS forvenous thrombosis, systemic embolization; TREATMENT for venous thrombosis and/or pulmonary embolus.HIGH RISK: Target INR is 2.5-3.5 for patients with mechanical heart valves.BLOOD GAS, [id number] 11:20:00 Test Item Value Reference Range Interpretation [...] = 1819) 32.0 % CT, CHEST, WITH [id number] 10:42:00FINAL REPORT CT scan of the chest. HISTORY: Hemoptysis, heavy smoker. COMPARISON STUDY: Chest x-ray dated December 26, 2017. TECHNIQUE: Contiguous helical slices were acquired through the thorax post administration of intravenous contrast. This exam was performed according to [facility] dose optimization program which includes automated exposure [...] Fortune Verified Date/Time: 12/26/2017 10:42:02 Reading Location: [facility] C013Y CT Body Reading Room RAD, CHEST, 1 VIEW, NON [id number] 10:18:00Reason for exam:->hemoptysis, several lung surgeriesShould this [...] Blair Verified Date/Time: 12/26/2017 10:18:43 Reading Location: [facility] Radiology Reading Room PHOSPHORUS 2017-12-26 05:13:00 Test Item Value Reference Range Interpretation Comments PHOSPHORUS (BEAKER) (test code = 2.5 mg/dL 2.3-4.7 604) [id number] 05:13:00 Test Item Value Reference Range Interpretation Comments MAGNESIUM (BEAKER) (test code = 2.2 mg/dL 1.6-2.6 627) BASIC METABOLIC [id number] 05:13:00 Test Item Value Reference Range Interpretation [...] PATIEN TS. CBC W/PLT COUNT & AUTO [id number] 04:43:00 Test Item Value Reference Range Interpretation [...] % 0-1 PERCENT (BEAKER) (test code = 9501)
[2021-03-03 16:57] LABS: Absolute Lymphocytes (CBC) 1.2 K/uL (0.7-4.9); Hematocrit 40.5 % (39.6-49.0); Lymphocytes % 20.9 % (15.3-44.8); MPV 8.1 fL (7.6-11.3); RBC Red Blood Cell Count 4.21 M/uL (4.33-5.43)
[2021-03-03 17:06] LABS: Protime INR 1.06
[2021-03-03 17:09] LABS: Urine Blood Negative (Negative); Urine Glucose Negative (Negative); Urine Protein Negative (Negative); Urine pH 6.5 (5.0-7.0)
--- NOTE | 2021-03-03 17:15 | RAD REPORT ---
EXAM DESCRIPTION: RAD - Chest Single View - 03/03/2021 5:06 pm CLINICAL HISTORY: SOB COMPARISON: Chest Single View dated 09/13/2019; Chest Single View dated 12/25/2017; Chest Single View dated 09/27/2016; Chest Single View dated 09/22/2016; Chest For Pe Angio dated 09/13/2019 FINDINGS: Lines: None. Lungs: Status post left upper lobectomy. No acute process identified. Pleural: No significant pleural effusions or pneumothorax. Cardiac: The heart size is within normal limits. Bones: No acute fractures. Other: IMPRESSION: No acute cardiopulmonary disease. Left upper lobectomy.
[2021-03-03 17:21] LABS: ALT/SGPT 21 U/L (12-78); AST/SGOT 14 U/L (15-37); Albumin 3.9 g/dL (3.4-5.0); Alkaline Phosphatase 113 U/L (45-117); BUN Blood Urea Nitrogen 10 mg/dL (7-18); Bicarbonate 31 mmol/L (21-32); Bilirubin Direct 0.2 mg/dL (0-0.2); Bilirubin Total 0.5 mg/dL (0.2-1.0); Glucose Level 87 mg/dL (74-106); Magnesium 2.1 mg/dL (1.8-2.4); NT PRO-BNP 66 pg/mL (<125); Potassium 3.6 mmol/L (3.5-5.1); Protein, Total 7.8 g/dL (6.4-8.2); Sodium Level 140 mmol/L (136-145); Troponin (Emerg Dept Use Only) < 0.02 ng/mL (0.0-0.045)
[2021-03-03 17:37] LABS: Barbiturates NEGATIVE (NEGATIVE); Benzodiazepines NEGATIVE (NEGATIVE); Cocaine NEGATIVE (NEGATIVE); METHAMPHETAM NEGATIVE (NEGATIVE); Methadone NEGATIVE (NEGATIVE); Opiates NEGATIVE (NEGATIVE); Phencyclidine NEGATIVE (NEGATIVE); THC Cannibis NEGATIVE (NEGATIVE)
[2021-03-03 17:51] LABS: SARS-COV-2 RT PCR POSITIVE (NEGATIVE)
--- NOTE | 2021-03-03 18:06 | RAD REPORT ---
EXAM DESCRIPTION: CT - Chest For Pe Angio - 03/03/2021 5:49 pm CLINICAL HISTORY: Chest pain;SOB COMPARISON: Chest For Pe Angio dated 09/13/2019; Thorax W/ Con dated 12/25/2017; Chest For Pe Angio d ated 09/22/2016; Chest For Pe Angio dated 03/22/2016 FINDINGS: Chest Wall: No suspicious thyroid nodules or pathologic lymphadenopathy. Lungs: Left upper lobectomy. Pleura: Pleural thickening posteriorly along the right lung is unchanged. Mediastinum/dom: No pathologic lymphadenopathy. Pulmonary arteries/Aorta: No filling defect identified. No aortic aneurysm. Heart: No significant pericardial effusion. Normal heart size. Upper abdomen: No acute abnormality. Bones: No acute abnormality. Partial left third rib resection. All CT scans are performed using dose optimization technique as appropriate and may include automated exposure control or mA/KV adjustment according to patient size. IMPRESSION: Negative for pulmonary embolism. No acute findings within the chest. Ancillary/incidenta l findings as noted above.
--- NOTE | 2021-03-03 18:53 | ER ---
Nurse's Notes [facility] Name: Dheeraj Narvaez Age: 50 yrs Sex: Male : 1970 Arrival Date: 03/03/2021 Time: 15:54 Bed 20 Private MD: Diagnosis: Coronavirus infection, unspecified Presentation: 03/03 16:13 Chief complaint: Patient states: Bilateral CP and SOB for 1 day. No fever. Coronavirus ll1 screen: Vaccine status: Patient reports being unvaccinated. Client denies travel out of the [place] in the last 14 days. At this time, the client does not indicate any symptoms associated with coronavirus-19. Ebola Screen: Patient denies travel to an Ebola-affected area in the 21 days before illness onset. Initial Sepsis Screen: Does the patient meet any 2 criteria? HR > 90 bpm. No. Patient's initial sepsis screen is negative. Does the patient have a suspected source of infection? Yes:. Risk Assessment: Do you want to hurt yourself or someone else? Patient reports no desire to harm self or others. Onset of symptoms was March 03, 2021. 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 - Social history:: Smoking status: Patient denies any tobacco usage or history of. Screenin:11 Abuse screen: Denies threats or abuse. Denies injuries from another. Nutritional ld1 screening: No deficits noted. Tuberculosis screening: No symptoms or risk factors identified. Fall Risk None identified. Assessment: 17:11 General: Appears in no apparent distress. comfortable, Behavior is calm, cooperative, ld1 appropriate for age. Pain: Denies pain. Neuro: Level of Consciousness is awake, alert, obeys commands, Oriented to person, place, time, situation, Appropriate for age. Cardiovascular: Capillary refill < 3 seconds Patient's skin is warm and dry. Rhythm is regular. Respiratory: Airway is patent Respiratory effort is even, unlabored, Respiratory pattern is regular, symmetrical, Breath sounds are clear bilaterally. GI: Abdomen is flat, non-distended. : No signs and/or symptoms were reported regarding the genitourinary system. EENT: No signs and/or symptoms were reported regarding the EENT system. Derm: No signs and/or symptoms reported regarding the dermatologic system. Musculoskeletal: No signs and/or symptoms reported regarding the musculoskeletal system. 19:45 Reassessment: Patient appears in no apparent distress at this time. No changes from evan previously documented assessment. Vital Signs: 16:13 Pulse 112; Resp 18; Temp 99.8; Pulse Ox 99% ; Weight 72.57 kg; Height 6 ft. 0 in. ll1 (182.88 cm); Pain 10/10; 17:11 BP 123 / 85; Pulse 89; Resp 18; Pulse Ox 98% on R/A; ld1 18:24 BP 129 / 88; Pulse 82; Resp 18; Pulse Ox 98% on R/A; ld1 19:45 BP 122 / 82; Pulse 87; Resp 22; Temp 98.6; Pulse Ox 100% ; Pain 0/10; evan 16:13 Body Mass Index 21.70 (72.57 kg, 182.88 cm) ll1 ED Course: 15:54 Patient arrived in ED. ds1 16:15 Triage completed. ll1 16:16 Arm band placed on. ll1 16:21 Philip Pa NP is PHCP. pm1 16:21 Conrado Elizabeth MD is Attending Physician. pm1 16:29 Aliya Stroud, MARIAH is Primary Nurse. ld1 16:53 COVID-19/FLU A+B (Document "Date of Onset" if Symptomatic) Sent. ld1 17:05 XRAY Chest (1 view) In Process Unspecified. EDMS 17:11 Patient has correct armband on for positive identification. Placed in gown. Bed in low ld1 position. Call light in reach. Side rails up X2. engine monitor on. Pulse ox on. NIBP on. Door closed. Noise minimized. Warm blanket given. 17:11 No provider procedures requiring assistance completed. Inserted saline lock: 20 gauge ld1 in right antecubital area, using aseptic technique. Blood collected. 17:49 CT Chest For PE Angio In Process Unspecified. EDMS 19:45 intact, bleeding controlled, No redness/swelling at site. Pressure dressing applied. evan Administered Medications: No medications were administered Outcome: 18:52 Discharge ordered by MD. pm1 19:45 Discharged to home evan 19:45 Condition: stable 19:45 Discharge instructions given to patient, family, Instructed on discharge instructions, Demonstrated understanding of instructions, follow-up care, medications. 20:13 Patient left the ED. evan Signatures: Dispatcher [employer] EDWV Lainey Navarro ds1 Philip Pa NP STRUCTURAL TEST ENGINEER pm1 Vineet Andrews RN RN ll1 Aliya Stroud RN RN ld1 Deena Claros RN RN evan
--- NOTE | 2021-03-03 18:53 | EDPHYS ---
Physician Documentation [facility] Name: Dheeraj Narvaez Age: 50 yrs Sex: Male : 1970 Arrival Date: 03/03/2021 Time: 15:54 Bed 20 Private MD: ED Physician Conrado Elizabeth HPI: 03/03 16:30 This 50 yrs old Male presents to ER via Wheelchair with complaints of Breathing pm1 Difficulty. 16:30 The patient has shortness of breath at rest. pm1 16:30 Onset: The symptoms/episode began/occurred yesterday. Duration: The symptoms are pm1 continuous. The patient's shortness of breath is aggravated by nothing, is alleviated by nothing. Associated signs and symptoms: Pertinent positives: chest pain, productive cough, hemoptysis, Pertinent negatives: fever, nausea, vomiting. Severity of symptoms: in the emergency department the symptoms are unchanged. The patient has experienced similar episodes in the past, today's symptoms are similar, to previous pneumothorax. The patient has not recently seen a physician. 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 - Social history:: Smoking status: Patient denies any tobacco usage or history of. ROS: 16:30 Constitutional: Negative for fever, chills, and weight loss. pm1 16:30 Abdomen/GI: Negative for abdominal pain, nausea, vomiting, diarrhea, and constipation. 16:30 MS/Extremity: Negative for injury and deformity, Skin: Negative for injury, rash, and discoloration, Neuro: Negative for headache, weakness, numbness, tingling, and seizure. 16:30 Cardiovascular: Positive for chest pain, of the both sides of chest, Negative for edema, orthopnea, palpitations. 16:30 Respiratory: Positive for cough, hemoptysis, shortness of breath. 16:30 Back: Positive for of the between left and right scapular area, Negative for injury or acute deformity. 16:30 All other systems are negative. Exam: 16:30 Constitutional: This is a well developed, well nourished patient who is awake, alert, pm1 and in no acute distress. Head/Face: Normocephalic, atraumatic. 16:30 Back: No spinal tenderness. No costovertebral tenderness. Full range of motion. Skin: Warm, dry with normal turgor. Normal color with no rashes, no lesions, and no evidence of cellulitis. MS/ Extremity: Pulses equal, no cyanosis. Neurovascular intact. Full, normal range of motion. 16:30 Chest/axilla: Inspection: normal, Palpation: tenderness, of the mid-sternal area. 16:30 Cardiovascular: Exam negative for acute changes, Rate: normal, Rhythm: regular, Pulses: no pulse deficits are appreciated. 16:30 Respiratory: Exam negative for acute changes, the patient does not display signs of respiratory distress, Respirations: normal, Breath sounds: are clear throughout. 16:30 Abdomen/GI: Inspection: abdomen appears normal, Palpation: abdomen is soft and non-tender, in all quadrants. 16:30 Neuro: Exam negative for acute changes, Orientation: is normal, Mentation: is normal, Motor: is normal, moves all fours. Vital Signs: 16:13 Pulse 112; Resp 18; Temp 99.8; Pulse Ox 99% ; Weight 72.57 kg; Height 6 ft. 0 in. ll1 (182.88 cm); Pain 10/10; 17:11 BP 123 / 85; Pulse 89; Resp 18; Pulse Ox 98% on R/A; ld1 18:24 BP 129 / 88; Pulse 82; Resp 18; Pulse Ox 98% on R/A; ld1 19:45 BP 122 / 82; Pulse 87; Resp 22; Temp 98.6; Pulse Ox 100% ; Pain 0/10; evan 16:13 Body Mass Index 21.70 (72.57 kg, 182.88 cm) ll1 MDM: 16:21 Patient medically screened. pm1 17:36 ED course: No pneumothorax present on chest x-ray. Chest pain with shortness of breath pm1 concerning for possible PE, will order CT chest PE protocol to rule out PE. 18:51 Data reviewed: vital signs. Data interpreted: Pulse oximetry: on room air is 98 %. pm1 Interpretation: normal. Counseling: I had a detailed discussion with the patient and/or guardian regarding: the historical points, exam findings, and any diagnostic results supporting the discharge/admit diagnosis, lab results, radiology results, the need for outpatient follow up, to return to the emergency department if symptoms worsen or persist or if there are any questions or concerns that arise at home. 03/03 16:30 Order name: COVID-19/FLU A+B (Document "Date of Onset" if Symptomatic); Complete Time: pm1 18:03/03 16:30 Order name: Basic Metabolic Panel; Complete Time: 17:27 pm03/03 16:30 Order name: CBC with Diff; Complete Time: 17:09 pm03/03 16:30 Order name: LFT's; Complete Time: 17:27 pm03/03 16:30 Order name: Magnesium; Complete Time: 17:27 pm03/03 16:30 Order name: NT PRO-BNP; Complete Time: 17:27 pm03/03 16:30 Order name: PT-INR; Complete Time: 17: pm03/03 16:30 Order name: Troponin (emerg Dept Use Only); Complete Time: 17:27 pm03/03 16:30 Order name: XRAY Chest (1 view); Complete Time: 17:27 pm03/03 16:30 Order name: EKG; Complete Time: 16:31 pm03/03 16:36 Order name: UDS pm03/03 16:36 Order name: Urine Drug Screen; Complete Time: 18:09 EDMS 03/03 17:09 Order name: Urine Dipstick-Ancillary; Complete Time: 17:27 EDMS 03/03 17:34 Order name: CT Chest For PE Angio; Complete Time: 18:09 pm03/03 16:30 Order name: Cardiac monitoring; Complete Time: 16:53 pm03/03 16:30 Order name: EKG - Nurse/Tech; Complete Time: 16:53 pm03/03 16:30 Order name: IV Saline Lock; Complete Time: 16:53 pm03/03 16:30 Order name: Labs collected and sent; Complete Time: 16:53 pm03/03 16:30 Order name: O2 Per Protocol; Complete Time: 16:53 pm03/03 16:30 Order name: O2 Sat Monitoring; Complete Time: 16:53 pm1 03/03 16:36 Order name: Urine Dipstick-Ancillary (obtain specimen); Complete Time: 17:11 pm1 Administered Medications: No medications were administered Disposition: 03/04 07:21 Co-signature as Attending Physician, Conrado Elizabeth MD I agree with the assessment and rn plan of care. Attestation: The patient's history, exam findings, diagnostics, and a summary of any interventions or procedures was reviewed in detail with Philip Pa NP. Disposition Summary: 03/03/21 18:52 Discharge Ordered Location: Home pm1 Problem: new pm1 Symptoms: have improved pm1 Condition: Stable pm1 Diagnosis - Coronavirus infection, unspecified pm1 Followup: pm1 - With: Emergency Department - When: As needed - Reason: Worsening of condition Followup: pm1 - With: Private Physician - When: 2 - 3 days - Reason: Recheck today's complaints, Continuance of care, Re-evaluation by your physician Discharge Instructions: - Discharge Summary Sheet pm1 - COVID-19 pm1 - COVID-19 Frequently Asked Questions pm1 - 10 Things You Can Do to Manage Your COVID-19 Symptoms at Home - [facility] pm1 - COVID-19: Quarantine vs. Isolation - [facility] pm1 Forms: - Medication Reconciliation Form pm1 - Thank You Letter pm1 - Antibiotic Education pm1 - Prescription Opioid Use pm1 Prescriptions: - Zithromax Z-Luis M 250 mg Oral Tablet - take 1 tablet by ORAL route as directed for 5 days Day 1 - take two (2) tablets pm1 one time. Day 2, 3, 4 , 5 take one (1) tablet once daily.; 6 tablet; Refills: 0, Product Selection Permitted - Guaifenesin AC 10-100 mg/5 mL Oral Liquid - take 10 milliliters by ORAL route every 4 hours As needed; 240 milliliter; pm1 Refills: 0, Product Selection Permitted Signatures: Dispatcher [employer] EDMS Conrado Elizabeth MD MD rn Marinas, Patrick, NP PLAYER DEVELOPMENT MANAGER pm1 Vineet Andrews RN RN ll1
[2021-03-03 20:22] VITALS: BP 122/82; TEMP 98.6; O2SAT 100
--- NOTE | 2021-03-04 11:24 | EKG ---
Test Date: 2021-03-03 Test Time: 16:44:19 [place] Oven Operator: YO MEASUREMENT RESULTS: Intervals: Rate: 95 OK: 178 QRSD: 88 QT: 332 QTc: 417 [place]: P: 71 OK: 178 QRS: 89 T: 88 INTERPRETIVE STATEMENTS: Normal sinus rhythm Normal ECG Compared to ECG 09/13/2019 18:32:17 Incomplete right bundle-branch block no longer present Electronically Signed On 03-04-21 11:22:19 CONTRACTOR BUYER by Nando Falcon
== END 2021-03-03 20:13 | disposition home or self-care (01) ==
LOC: ER 15:52
DX: U07.1 COVID-19 (principal); Z88.8 Allergy status to other drugs, medicaments and biological substances
CPT/HCPCS: 0240U; 36415; 71045; 71275; 80048; 80076; 80307; 81003; 83735; 83880; 84484; 85025; 85610; 93005; 99284; Q9967

== ENCOUNTER 2021-12-17 13:04 | Emergency (ER) | payer SELFPAY ==
--- OUTSIDE RECORDS SUMMARY | 2021-12-17 13:08 | XMS REPORT | Continuity of Care Document ---
:1970 Author Organization [facility] t Address [address] [place] [address] Care Team Providers Name Role Phone PCP, PATIENT DOES NOT HAVE A Primary Care Physician Unavaila MANN Jenkins Attending Clinician Unavailable Mann Torres DO Attending Clinician MILIORLANDO Sapp Attending Clinician Unavailable MANN TORRES Admitting Clinician Unavailable ORLANDO GARCES Admitting Clinician Unavailable Payers Payer Name Policy Type Policy Number Effective Date Expiration Date S daljit [facility] [id number] 2017 00:00:00 Problems Condition Condition Condition Status Onset Resolution Last Treating Co mments Source Name Details Category Date Date Treatment Clinician Date Hypovitami Hypovitami Disease Active U nivers nosis D: nosis D: 1-31 ity of 20(02/2018[place] Fever, Fever, Disease Active [facility] unspecifie unspecifie 1-30 it y of d fever d fever 00:00: [place] cause cause 00 Medical Branch Chronic Chronic Disease Active 2017-02 Univers cough cough 2-20 ity of 00:00: [place] 00 Medical Branch Restrictiv Restrictiv Disease Active 2017-02 Overview : Univers e e 1-15 Formattin ity of ventilator ventilator 00:00: g of this [place] y defect y defect 00 note Medica l might be Branch different from the original. Added automatic ally from request for surgery [id number] Hemoptysis Hemoptysis Disease Active 2017-02 Overview : Univers 1-15 Formattin ity of 00:00: g of this [place] [address] note Medical might be Branch different from the original. Added automatic ally from request for surgery [id number] Respirator Respirator Disease Active 2017-[address] y failure y failure 0-31 [facility] 00:[facility] Center Rhinovirus Rhinovirus Disease Active 2017-[address] infection infection 0-30 [facility] 00[facility] Hypoxia Hypoxia Disease Active 2017-[address] [facility] Hemoptysis Hemoptysis Disease Active 2017-[address] [facility] Center Allergies, Adverse Reactions, Alerts Allergy Allergy Status Severity Reaction(s) Onset Inactive Treating Comm ents Source Name Type Date Date Clinician Dexameth Propensi Active 2017-[address] [facility]one ty to 0-29 [facility] adverse 00:00: Medical reaction 00 Center s DEXAMETH DRUG Active Hives 2017-02 Univers ASONE INGREDI 0-29 ity of 00:00: [place] [address] Medical Branch Social History Social Habit Start Date Stop Date Quantity Comments Source Exposure to Not sure [facility] SARS-CoV-2 [place] Medical (event) Branch History SDOH [facility] Alcohol Std Medical Cente r Drinks History SDOH [facility] Alcohol Binge Medical Shannan ter History SDOH [facility] Alcohol Comment Medical C enter Alcohol intake 2017-12-31 2017-12-[address] [facility] 00:00:00 00:00:00 non-drinker of Medical Ce nter alcohol (finding) Tobacco use and 2017-12-26 2017-12-[address] [facility] [address] [facility] exposure 00:00:00 00:00:00 Medical Center History SDOH 2017-12-26 2017-12-[address] [facility] Alcohol Frequency 00:00:00 00:00:00 Medical Center Sex Assigned At [address] [address] [facility] 00:00:00 [facility]00 [facility] Center Smoking Status Start Date Stop Date Source Never smoker [facility] Medical Branch Medications Ordered Filled Start Stop Current Ordering Indication Dosage Frequency Signature Comments Components Source Medication Medication Date Date Medication? Clinician (SIG) Name Name chlorphenir Yes [id number] 4mg Take 1 Univers amine 4 mg 1-07 tablet by ity of tablet 00:00: mouth [place] 00 every 6 Medical (six) Branch hours as needed for Allergies or Runny nose. calcium/mag Yes [id number] 1{each} Take 1 Univers nesium/zinc 1-07 Each by ity o f (CALCIUM-MA 00:00: mouth [place] GNESUIUM-ZI 00 daily. Medica l [place]) Branch 333-133-5 mg Tab benzonatate Yes [id number] 100mg Take 1 Univers 100 mg 1-07 capsule by ity of capsule 00:00: mouth 3 [place] 00 (three) Medical times Branch daily as needed for Cough. vitamin 2021- No [id number] 1{tbl} Take 1 Univers D3-folic -08 29- tablet by ity o f acid 125 00:00: 05:59 mouth [place] mcg (5,000 00 :00 daily for [facility] unit)-1 mg 30 days. Branc h Tab ergocalcife Yes [id number] 48099D Take 1 Univers rol, 2-04 capsule by ity of vitamin d2, 00:00: mouth [place] 50,000 unit 00 weekly. Medic al capsule Branch Immunizations Ordered Immunization Filled Immunization Date Status Commen ts Source Name Name Influenza 2017-12-[address] [facility] ([place])_0.5ml 00:00:00 Medical C enter Qiv_im_egg & Antibiotic Free Pf ([id number]) Influenza 2017-12-[address] [facility] ([place])_0.5ml 00:00:00 Medical C enter Qiv_im_egg & Antibiotic Free Pf ([id number]) Vital Signs Vital Name Observation Time Observation Value Comments Source Systolic blood 2021-03-07 00:00:00 114 [facility] Diastolic blood 2021-03-07 00:00:00 74 mm[Hg] [facility] Heart rate 2021-03-07 00:00:00 80 /min [facility] Respiratory rate 2021-03-07 00:00:00 17 /min [facility] Oxygen saturation in 2021-03-07 00:00:00 96 /min [facility] Arterial blood by [facility] Pulse oximetry Branch Body temperature 2021-03-06 22:22:00 36.72 Ary [facility] Body height 2021-03-06 22:22:00 177.8 cm [facility] Body weight 2021-03-06 22:22:00 78.019 kg [facility] BMI 2021-03-06 22:22:00 24.68 kg/m2 [facility] Procedures Procedure Date / Time Performed Performing Clinician Sourc e XR CHEST 1 VW 2021-03-06 23:09:33 Singer [facility] TROPONIN I 2021-03-06 22:40:00 Singer [facility] COMP. METABOLIC PANEL 2021-03-06 22:40:00 [facility] ([id number]) [facility] CBC WITH DIFF 2021-03-06 22:40:00 Singer [facility] RAPID INFLUENZA A/B 2021-03-06 22:40:00 Mann Torres [facility] N-TERMINAL PRO-BNP 2021-03-06 22:40:00 Mann Torres [facility] COVID-19 (ID NOW 2021-03-06 22:40:00 Singer [facility] RAPID TESTING) [facility] CONSENT/REFUSAL FOR 2021-03-06 22:18:35 Doctor Unassigned, No [facility] DIAGNOSIS AND Name [facility] TREATMENT NOTICE OF PRIVACY 2021-03-06 22:18:15 Doctor Unassigned, No [facility] PRACTICES Name [facility] Encounters Start End Encounter Admission Attending Care Care Encounter Source Date/Time Date/Time Type Type Clinicians Facility Department ID 2021-03-06 2021-03-06 Emergency X RANDY TORRES ERT [id number] Univers 16:27:00 18:54:00 MANN holt [facility] 2021-03-06 2021-03-06 Emergency RANDY Torres [id number] Univers 16:27:00 18:54:00 Mann LÓPEZ [id number] i adwoa [place] [id number] [facility] [id number] [facility] sylvester 084 Branch 2019-10-17 2019-10-17 Outpatient COH COH PDPFEGO EUG COH 00:00:00 00:00:00 [id number] Results Test Description Test Time Test Comments Results Result Comments Source TROPONIN I 2021-03-06 23:20:44 Test Item Value Reference Range Interpretation Comme nts TROPONIN I (test code = 0.002 ng/mL See_Comment [Au tomated message] The [id number]) system which ge nerated this result tra nsmitted reference range : <=0.034. The reference r barron was not used to int erpret this result as normal/abnormal . PADMA (test code = PADMA) Reference (Normal) Range (defined by the 99th percentile reference limit): <= 0.034 ng/mL Note: Cardiac troponin begins to rise 3-4 hours after the onset of ischemia. Repeat in 4-6 hours if the sample was drawn within 3-4 hours of the onset of the symptom and found normal. Diagnosis of myocardial injury is made with acute changes in cTn concentrations with at least one serial sample above the 99th percentile upper reference limit (URL), taken together with the patient's clinical presentation. Biotin has been reported to cause a negative bias, interpret results relative to patient's use of biotin. Lab Interpretation Normal (test code = 14569-2) [facility] [id number] 23:17:25 Test Item Value Reference Range Interpretation Comments NT-proBNP (test code 31 pg/mL See_Comment [Autom ated = 5217243216) message] The system which generated this result transmitted reference range : <=125. The reference range was not used to interpret this result as normal/abnormal . PADMA (test code = PADMA) Biotin has been reported to cause a negative bias, interpret results relative to patient's use of biotin. Lab Interpretation Normal (test code = 11909-0) [facility] ([id number][facility]20[facility]-06 23:09:00 Test Item Value Reference Range Interpretation Comments NA (test code = 138 mmol/L 135-145 7234604537) K (test code = 4.4 mmol/L 3.5-5.0 8994294513) CL (test code = 101 mmol/L 98-108 8522902893) CO2 TOTAL (test code 29 mmol/L 23-31 = 6593145735) AGAP (test code = 2-16 8092619141) BUN (test code = 16 mg/dL 7-23 1993929162) GLUCOSE (test code = 97 mg/dL 70-110 1742234686) CREATININE (test code 1.02 mg/dL 0.60-1.25 = 1215617810) TOTAL BILI (test code 0.6 mg/dL 0.1-1.1 = 2800934735) CALCIUM (test code = 9.0 mg/dL 8.6-10.6 4939199124) T PROTEIN (test code 8.0 g/dL 6.3-8.2 = 2844265893) ALBUMIN (test code = 4.6 g/dL 3.5-5.0 4823202136) ALK PHOS (test code = 101 U/L 34-122 3830572598) ALTv (test code = 18 U/L 5-50 2-6) AST(SGOT) (test code 25 U/L 13-40 = 5494823322) eGFR (test code = mL/min/1.73m2 8197299905) PADMA (test code = PADMA) Association of Glomerular Filtration Rate (GFR) and Staging of Kidney Disease* + + +- +| GFR (mL/min/1.73 m2) ?| With Kidney Damage ?| ?Without Kidney Damage+ ------+ ----+ ------+| ?>90 ?| ?Stage one ?| ? Normal ?+ -+ + -+| ?60-89 ?| ?Stage two ?| ? Decreased GFR ? + + +- +| ?30-59 ?| ?Stage three ?| ? Stage three ? + + +- +| ?15-29 ?| ?Stage four ? | ? Stage four ?+ -+ + -+| ?<15 (or dialysis) ? ?| ?Stage five ? | ? Stage five ?+ -+ + -+ *Each stage assumes the associated GFR level has been in effect for at least three months. ?Stages 1 to 5, with or without kidney disease, indicate chronic kidney disease. Notes: Determination of stages one and two (with eGFR >59mL/min/1.73 m2) requires estimation of kidney damage for at least three months as defined by structural or functional abnormalities of the kidney, manifested by either:Pathological abnormalities or Markers of kidney damage (including abnormalities in the composition of the blood or urine or abnormalities in imaging tests). [facility] WITH [id number] 22:50:54 Test Item Value Reference Range Interpretation Comments WBC (test code = See_Comment [Automated 6690-2) message] The sy stem which generated this result transmitted reference range : 4.20 - 10.70 10*3/?L. The reference range was not used to interpret this result as normal/abnormal . RBC (test code = See_Comment [Automated 789-8) message] The sy stem which generated this result transmitted reference range : 4.26 - 5.52 10*6/?L. The reference range was not used to interpret this result as normal/abnormal . HGB (test code = 14.8 g/dL 12.2-16.4 718-7) HCT (test code = 43.6 % 38.4-49.3 4544-3) MCV (test code = 96.2 fL 81.7-95.6 H 787-2) MCH (test code = 32.7 pg 26.1-32.7 785-6) MCHC (test code = 33.9 g/dL 31.2-35.0 786-4) RDW-SD (test code = 42.5 fL 38.5-51.6 31704-7) RDW-CV (test code = 11.9 % 12.1-15.4 L 788-0) PLT (test code = See_Comment [Automated 777-3) message] The sy stem which generated this result transmitted reference range : 150 - 328 10*3/ ?L. The reference r barron was not used to interpret this result as normal/abnormal . MPV (test code = 10.0 fL 9.8-13.0 54194-9) NRBC/100 WBC (test See_Comment [Automat ed code = 5627473279) message] The system which generated this result transmitted reference range : 0.0 - 10.0 /100 WBCs. The refer ence range was not u sed to interpret th is result as normal/abnormal . NRBC x10^3 (test code <0.01 See_Comment [Auto mated = 1007483800) message] The s ystem which generated this result transmitted reference range : 10*3/?L. The reference range was not used to interpret this result as normal/abnormal . GRAN MAT (NEUT) % 61.4 % (test code = 770-8) IMM GRAN % (test code 0.50 % = 3036852644) LYMPH % (test code = 27.2 % 736-9) MONO % (test code = 8.9 % 5905-5) EOS % (test code = 1.3 % 713-8) BASO % (test code = 0.7 % 706-2) GRAN MAT x10^3(ANC) 3.43 10*3/uL 1.99-6.95 (test code = 4587090162) IMM GRAN x10^3 (test 0.03 10*3/uL 0.00-0.06 code = 7078278672) LYMPH x10^3 (test code 1.52 10*3/uL 1.09-3.23 = 731-0) MONO x10^3 (test code 0.50 10*3/uL 0.36-1.02 = 742-7) EOS x10^3 (test code = 0.07 10*3/uL 0.06-0.53 711-2) BASO x10^3 (test code 0.04 10*3/uL 0.01-0.09 = 704-7) Lab Interpretation Abnormal (test code = 84104-5) [facility] + [id number] 07:07:00 Test Item Value Reference Range Interpretation Comments CULTURE (BEAKER) (test No acid-fast bacilli code = 1095) isolated in 42 days AFB SMEAR (BEAKER) No acid fast bacilli (test code = 994) seen FUNGUS CULTURE + [id number] 14:22:00 Test Item Value Reference Range Interpretation Comments CULTURE (BEAKER) A 2+ Alvina (test code = dubliniensisThi s is a 1095) corrected organ ism result. Previou s result was Yeast on at 1244 DEPUTY CORONER FUNGUS SMEAR No fungi seen (BEAKER) (test code = 1406) SPUTUM CULTURE + GRAM [id number] 11:42:00 Test Item Value Reference Range Interpretation Comments CULTURE A 4+ Moraxella (BEAKER) (test catarrhalis code = 1095) GRAM STAIN 1+ White blood cells RESULT (BEAKER) seen (test code = 1123) GRAM STAIN 0-5 epithelial cells RESULT (BEAKER) (test code = 582640) GRAM STAIN 1+ gram negative RESULT (BEAKER) rods (test code = 144190) GRAM STAIN <1+ gram negative RESULT (BEAKER) coccobacilli (test code = 346826) GRAM STAIN <1+ gram positive RESULT (BEAKER) cocci in pairs (test code = 530779) 4+ Normal respiratory james presentC W/PLT COUNT & AUTO DIFFERENTIAL 2017-12-30 07:57:00 [...] (BEAKER) (test code = 2801) BASIC METABOLIC [id number] 07:32:00 Test Item Value Reference Range Interpretation [...] APPLICABLE FOR DIALYSIS PATIEN TS. BASIC METABOLIC [id number] 06:09:00 Test Item Value Reference Range Interpretation [...] PATIEN TS. CBC W/PLT COUNT & AUTO [id number] 04:59:00 Test Item Value Reference Range Interpretation [...] (BEAKER) (test code = 2801) BASIC METABOLIC [id number] 05:44:00 Test Item Value Reference Range Interpretation [...] S NOT APPLICABLE FOR DIALYSIS PATIEN TS. [id number] 05:44:00 Test Item Value Reference Range Interpretation Comments PHOSPHORUS (BEAKER) (test code = 3.5 mg/dL 2.3-4.7 604) [id number] 05:44:00 Test Item Value Reference Range Interpretation Comments MAGNESIUM (BEAKER) (test code = 2.1 mg/dL 1.6-2.6 627) RESPIRATORY PANEL [id number] 08:56:00 Test Item Value Reference Range Interpretation Comments HUMAN METAPNEUMOVIRUS Not detected Not detected, (BEAKER) (test code = Equivocal 2683) RHINOVIRUS (BEAKER) Detected Not detected, A Assay i s not able (test code = 2684) Equivocal different iate between Human Rhinovirus and [...] decisions. This sample was tested at the [facility] using the [employer] Respiratory Panel. It is FDA cleared and has been verified and approved by the [facility] for clinical use on nasal swab specimens. It is not FDA-cleared for use on bronchial wash/lavage samples. However, for this sample type, validation was performed and test characteristics were determined and approved, by [facility] for clinical use under the Clinical Laboratory Improvement Amendments (CLIA) of 1988 requirements. Therefore, FDA clearance isnot required. This laboratory is CLIA- certified and [employer] (CAP)-accredited to perform high complexity testing.SPIN/CONCENTRATION [id number] 08:24:00 Test Item Value Reference Range Interpretation Comments CONCENTRATION CHARGED (BEAKER) (test Done code = 2657) [id number] 07:34:00 Test Item Value Reference Range Interpretation Comments MAGNESIUM (BEAKER) 2.4 mg/dL 1.6-2.6 Specimen slightly (test code = 627) hemolyzed [id number] 07:34:00 Test Item Value Reference Range Interpretation Comments PHOSPHORUS (BEAKER) 3.5 mg/dL 2.3-4.7 Specimen slightly (test code = 604) hemolyzed BASIC METABOLIC [id number] 07:34:00 Test Item Value Reference Range Interpretation [...] DIALYSIS PATIEN TS. SPUTUM CULTURE + GRAM [id number] 00:08:00 Test Item Value Reference Range Interpretation Comments CULTURE (BEAKER) Oropharyngeal (test code = 1095) contamination, specimen rejected. Recollect requested. GRAM STAIN RESULT 1+ WBCs (BEAKER) (test code = 1123) GRAM STAIN RESULT >25 epithelial cells (BEAKER) (test code = 09449) GRAM STAIN RESULT 4+ gram positive cocci in (BEAKER) (test code chains, pairs and = 98657) clusters GRAM STAIN RESULT 2+ gram variable rods (BEAKER) (test code = 645323) [id number] 11:45:00 Test Item Value Reference Range Interpretation Comments PARTIAL THROMBOPLASTIN TIME 30.7 seconds 22.5-36.0 (BEAKER) (test code = 760) PROTHROMBIN [id number] 11:24:00 Test Item Value Reference Range Interpretation Comments PROTIME (BEAKER) (test code = 13.6 seconds 11.7-14.7 759) INR (BEAKER) (test code = 370) 1.0 <=5.9 RECOMMENDED COUMADIN/WARFARIN INR THERAPY RANGESSTANDARD DOSE: 2.0 - 3.0 Includes: PROPHYLAXIS for venous thrombosis, systemic embolization; TREATMENT for venous thrombosis and/or pulmonary embolus.HIGH RISK: Target INR is 2.5-3.5 for patients with mechanical heart valves.BLOOD GAS, [id number] 11:20:00 Test Item Value Reference Range Interpretation [...] = 1819) 32.0 % CT, CHEST, WITH [id number] 10:42:00FINAL REPORT CT scan of the chest. HISTORY: Hemoptysis, heavy smoker. COMPARISON STUDY: Chest x- ray dated December 26, 2017. TECHNIQUE: Contiguous helical [...] postsurgical changes and volume loss.2. Areas of pleural-based calcification in the right thorax.3. No definite cause for the patient's hemoptysis identified. Signed: Moshe Fortune MDReport Verified Date/Time: 12/26/2017 10:42:02 Reading Location: [facility] [id number] Body Reading Room RAD, CHEST, 1 VIEW, NON [id number] 10:18:00Reason for exam:->hemoptysis, several lung surgeriesShould this be performed at the bedside?->YesFINAL REPORT Chest one view. Clinical history: hemoptysis, several lung surgeries Comparison: No priors Discussion: A frontal chest is provided. Cardiac silhouette is within normallimits. There is opacification in the left upper lung, with evidence of postsurgical change, and volume loss. Right lung is grossly clear. No evidence of pneumothorax, or significant effusion. No acutebony findings. Signed: Nathaniel Blair Verified Date/Time: 12/26/2017 10:18:43 Reading Location: [facility] Radiology Reading Room PHOSPHORUS 2017-12-26 05:13:00 Test Item Value Reference Range Interpretation Comments PHOSPHORUS (BEAKER) (test code = 2.5 mg/dL 2.3-4.7 604) [id number] 05:13:00 Test Item Value Reference Range Interpretation Comments MAGNESIUM (BEAKER) (test code = 2.2 mg/dL 1.6-2.6 627) BASIC METABOLIC [id number] 05:13:00 Test Item Value Reference Range Interpretation [...] PATIEN TS. CBC W/PLT COUNT & AUTO [id number] 04:43:00 Test Item Value Reference Range Interpretation [...] % 0-1 PERCENT (BEAKER) (test code = 2801)"
[2021-12-17] MEDS ORDERED: ASPIRIN 81 MG CHEWABLE TABLET ONE (14:03)
[2021-12-17 14:09] LABS: Absolute Lymphocytes (CBC) 1.4 K/uL (0.7-4.9); Hematocrit 39.6 % (39.6-49.0); Lymphocytes % 40.4 % (15.3-44.8); MCV 94.5 fL (80-100); MPV 9.1 fL (7.6-11.3); RBC Red Blood Cell Count 4.19 M/uL (4.33-5.43)
[2021-12-17 14:11] LABS: Protime INR 0.97
[2021-12-17 14:18] LABS: SARS-CoV-2 Antigen Rapid Res Negative (Negative)
[2021-12-17] MEDS ORDERED: FAMOTIDINE 20 MG/2 ML VIAL IV ONE (14:19)
[2021-12-17] MEDS ORDERED: ONDANSETRON 4 MG/2 ML VIAL ONE (14:19)
[2021-12-17] MEDS ORDERED: MORPHINE 4 MG/ML SYR ONE (14:19)
[2021-12-17 14:28] LABS: ALT/SGPT 25 U/L (12-78); AST/SGOT 13 U/L (15-37); Albumin 3.4 g/dL (3.4-5.0); Alkaline Phosphatase 99 U/L (45-117); BUN Blood Urea Nitrogen 13 mg/dL (7-18); Bicarbonate 30 mmol/L (21-32); Bilirubin Direct < 0.1 mg/dL (0-0.2); Bilirubin Total 0.3 mg/dL (0.2-1.0); Glomerular Filtration Rate 79 ml/min (=/>90); Glucose Level 98 mg/dL (74-106); Lipase 90 U/L (73-393); NT PRO-BNP 43 pg/mL (<125); Potassium 3.4 mmol/L (3.5-5.1); Protein, Total 7.1 g/dL (6.4-8.2); Sodium Level 138 mmol/L (136-145); Troponin High Sensitivity 5.3 pg/mL (<58.9)
--- NOTE | 2021-12-17 14:55 | RAD REPORT ---
EXAM DESCRIPTION: CT - Chest For Pe Angio - 12/17/2021 2:37 pm CLINICAL HISTORY: Chest pain COMPARISON: February 2021 TECHNIQUE: Dynamically enhanced axial 3 mm thick images of the chest were obtained during administra tion of <100> mL Isovue 370 IV contrast. Coronal and oblique reconstruction images were generated and reviewed. Exam utilizes a protocol for optimal evaluation of pulmonary arterial tree. Maximum intensity projections 3D imaging was utilized All CT scans are performed using dose optimization technique as appropriate and may include automated exposure control or mA/KV adjustment according to patient size. FINDINGS: A pulmonary embolus is not seen. A thoracic aortic aneurysm is not noted. A pleural effusion is not seen. A pericardial effusion is not seen. Left upper lobectomy. No lung consolidation. Mild right lower lobe atelectasis. IMPRESSION: Negative for a pulmonary embolism.
--- NOTE | 2021-12-17 14:56 | RAD REPORT ---
EXAM DESCRIPTION: Liam Single View12/17/2021 2:05 pm CLINICAL HISTORY: Chest pain COMPARISON: February 2021 FINDINGS: Left upper lobectomy Right lung appears clear. The heart is normal size IMPRESSION: No acute abnormalities displayed
[2021-12-17] MEDS ORDERED: POTASSIUM 25 MEQ EFFERV TAB ONE (15:06)
--- NOTE | 2021-12-17 16:15 | ER ---
Nurse's Notes [facility] Name: Dheeraj Narvaez Age: 51 yrs Sex: Male : 1970 Arrival Date: 12/17/2021 Time: 13:16 Bed 10 Private MD: Diagnosis: Pleurisy;Chest pain, unspecified;Chest pain on breathing;Hypokalemia;Localized enlarged lymph nodes-RIGHT AXILLA Presentation: 12/17 13:17 Chief complaint: EMS states: toned out for bilateral chest pain, started yesterday. Pt eh3 states he was trying to get into the car to drive to the hospital, got dizzy, and passed out but did not hit his head. Coronavirus screen: Vaccine status: Patient reports receiving the 2nd dose of the covid vaccine. Ebola Screen: No symptoms or risks identified at this time. Initial Sepsis Screen: Does the patient meet any 2 criteria? No. Patient's initial sepsis screen is negative. Does the patient have a suspected source of infection? No. Patient's initial sepsis screen is negative. Risk Assessment: Do you want to hurt yourself or someone else? Patient reports no desire to harm self or others. Onset of symptoms was December 17, 2021. 13:17 Method Of Arrival: EMS: [facility] 13:17 Acuity: KAMARI 3 eh3 Triage Assessment: 13:18 General: Appears in no apparent distress. uncomfortable, Behavior is calm, cooperative, eh3 appropriate for age, drowsy. Pain: Complains of pain in anterior aspect of right upper chest and anterior aspect of left upper chest Pain radiates to right posterior upper chest wall Pain currently is 8 out of 10 on a pain scale. Quality of pain is described as sharp. Neuro: Level of Consciousness is awake, alert, obeys commands, Oriented to person, place, time, situation. Cardiovascular: Capillary refill < 3 seconds Patient's skin is warm and dry. Respiratory: Airway is patent Respiratory effort is even, labored. GI: No signs and/or symptoms were reported involving the gastrointestinal system. Abdomen is flat, non-distended. Musculoskeletal: Circulation, motion, and sensation intact. Range of motion: intact in all extremities. 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 - Social history:: Smoking status: Patient denies any tobacco usage or history of. Patient uses alcohol, occasionally. - Family history:: not pertinent. Screenin:20 Abuse screen: Denies threats or abuse. Denies injuries from another. Nutritional eh3 screening: No deficits noted. Tuberculosis screening: No symptoms or risk factors identified. Fall Risk Fall in past 12 months (25 points). IV access (20 points). Total Fontaine Fall Scale indicates High Risk Score (45 or more points). Fall prevention measures have been instituted. Side Rails Up X 2 Placed Close to Nursing Station Frequent Obs/Assessments Occuring As available patient and family educated on Fall Prevention Program and Strategies. Assessment: 13:20 Reassessment: No changes from previously documented assessment. See triage assessment. eh3 Pain: Pain began suddenly, 1 day ago. 14:00 Reassessment: Patient and/or family updated on plan of care and expected duration. Pain eh3 level reassessed. Patient is alert, oriented x 3, equal unlabored respirations, skin warm/dry/pink. 15:00 Reassessment: Patient and/or family updated on plan of care and expected duration. Pain eh3 level reassessed. Patient is alert, oriented x 3, equal unlabored respirations, skin warm/dry/pink. 16:00 Reassessment: Patient and/or family updated on plan of care and expected duration. Pain eh3 level reassessed. Patient is alert, oriented x 3, equal unlabored respirations, skin warm/dry/pink. 17:00 Reassessment: Patient and/or family updated on plan of care and expected duration. Pain eh3 level reassessed. Patient is alert, oriented x 3, equal unlabored respirations, skin warm/dry/pink. Vital Signs: 13:17 BP 117 / 87; Pulse 70; Resp 15; Temp 98.0(O); Pulse Ox 100% on R/A; Weight 74.84 kg; eh3 Height 6 ft. 0 in. (182.88 cm); Pain 8/10; 14:00 BP 112 / 76; Pulse 67; Resp 14; Pulse Ox 97% on R/A; eh3 15:00 BP 129 / 87; Pulse 81; Resp 16; Pulse Ox 100% on R/A; eh3 16:00 BP 116 / 83; Pulse 55; Resp 20; Pulse Ox 100% on R/A; eh3 17:00 BP 122 / 82; Pulse 78; Resp 18; Pulse Ox 100% on R/A; eh3 13:17 Body Mass Index 22.38 (74.84 kg, 182.88 cm) 3 ED Course: 13:16 Patient arrived in ED. 3 13:18 Eloy Sinclair MD is Attending Physician. [facility] 13:18 Triage completed. 3 13:18 Arm band placed on right wrist. 3 13:20 Patient has correct armband on for positive identification. Bed in low position. Call [facility] light in reach. Side rails up X2. Client placed on continuous cardiac and pulse oximetry monitoring. NIBP monitoring applied. Door closed. Noise minimized. Lights dimmed. Warm blanket given. 13:20 Maintain EMS IV. Dressing intact. Good blood return noted. Site clean \T\ dry. Gauge \T\ eh 3 site: 20g RAC. Patient maintains SpO2 saturation greater than 95% on room air. 13:38 Amaya Ruelas, RN is Primary Nurse. 3 13:38 SARS RAPID Sent. 3 14:07 XRAY Chest (1 view) In Process Unspecified. EDMS 14:39 CT Chest For PE Angio In Process Unspecified. EDMS 15:47 Troponin High Sensitivity: 330PM Sent. 3 16:14 Santiago Bartlett MD is Referral Physician. [facility] 17:07 Osvaldo Bull MD is Referral Physician. [facility] Administered Medications: 14:00 Drug: Aspirin Chewable Tablet 162 mg Route: PO; 3 14:28 Follow up: Response: No adverse reaction 3 14:27 Drug: morphine 4 mg Route: IVP; Infused Over: 4 mins; Site: right antecubital; 3 15:16 Follow up: Response: Pain is unchanged, physician notified 3 14:27 Drug: Zofran (Ondansetron) 4 mg Route: IVP; Site: right antecubital; 3 15:16 Follow up: Response: No adverse reaction [facility] 14:27 Drug: Pepcid (famotidine) 20 mg Route: IVP; Site: right antecubital; eh3 15:16 Follow up: Response: No adverse reaction eh3 15:16 Drug: Potassium Effervescent Tablet 25 mEq Route: PO; eh3 15:30 Follow up: Response: No adverse reaction eh3 17:40 Drug: Doxycycline 100 mg Route: PO; eh3 18:05 Follow up: Response: No adverse reaction eh3 17:40 Drug: Bactrim (trimethoprim-sulfamethoxazole) (160 mg-800 mg (DS) 1 tablet Route: PO; eh3 18:06 Follow up: Response: No adverse reaction eh3 Outcome: 16:14 Discharge ordered by MD. ford 18:07 Patient left the ED. 3 Signatures: Dispatcher [employer] EDEloy Wang MD MD cha Hall, Erin RN RN eh3
--- NOTE | 2021-12-17 16:15 | EDPHYS ---
Physician Documentation [facility] Name: Dheeraj Narvaez Age: 51 yrs Sex: Male : 1970 Arrival Date: 12/17/2021 Time: 13:16 Bed 10 Private MD: ED Physician Eloy Sinclair HPI: 12/17 15:10 This 51 yrs old Male presents to ER via EMS with complaints of Chest Pain. logan 15:10 The patient or guardian reports chest pain that is located primarily in the anterior [facility] chest wall, bilaterally. Onset: yesterday. The pain does not radiate. Associated signs and symptoms: Pertinent positives: shortness of breath. The chest pain is described as sharp, stabbing. Duration: The patient or guardian reports multiple episodes, that are intermittent. Modifying factors: The symptoms are alleviated by remaining still, the symptoms are aggravated by deep breath, movement. Severity of pain: At its worst the pain was mild in the emergency department the pain is unchanged. The patient has experienced similar episodes in the past, several times. 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 - Social history:: Smoking status: Patient denies any tobacco usage or history of. Patient uses alcohol, occasionally. - Family history:: not pertinent. ROS: 15:10 Constitutional: Negative for fever, chills, and weight loss, Eyes: Negative for injury, logan pain, redness, and discharge, ENT: Negative for injury, pain, and discharge, Neck: Negative for injury, pain, and swelling, Abdomen/GI: Negative for abdominal pain, nausea, vomiting, diarrhea, and constipation, Back: Negative for injury and pain, : Negative for injury, bleeding, discharge, and swelling, MS/Extremity: Negative for injury and deformity, Skin: Negative for injury, rash, and discoloration, Neuro: Negative for headache, weakness, numbness, tingling, and seizure, Psych: Negative for depression, anxiety, suicide ideation, homicidal ideation, and hallucinations, Allergy/Immunology: Negative for hives, rash, and allergies, Endocrine: Negative for neck swelling, polydipsia, polyuria, polyphagia, and marked weight changes, Hematologic/Lymphatic: Negative for swollen nodes, abnormal bleeding, and unusual bruising. 15:10 Cardiovascular: Positive for chest pain. 15:10 Respiratory: Positive for cough, shortness of breath, at rest. 15:10 MS/extremity: Negative for acute changes. Exam: 15:10 Constitutional: This is a well developed, well nourished patient who is awake, alert, logan and in no acute distress. Head/Face: Normocephalic, atraumatic. Eyes: Pupils equal round and reactive to light, extra-ocular motions intact. Lids and lashes normal. Conjunctiva and sclera are non-icteric and not injected. Cornea within normal limits. Periorbital areas with no swelling, redness, or edema. ENT: Nares patent. No nasal discharge, no septal abnormalities noted. Tympanic membranes are normal and external auditory canals are clear. Oropharynx with no redness, swelling, or masses, exudates, or evidence of obstruction, uvula midline. Mucous membranes moist. Neck: Trachea midline, no thyromegaly or masses palpated, and no cervical lymphadenopathy. Supple, full range of motion without nuchal rigidity, or vertebral point tenderness. No Meningismus. Chest/axilla: Normal chest wall appearance and motion. Nontender with no deformity. No lesions are appreciated. Cardiovascular: Regular rate and rhythm with a normal S1 and S2. No gallops, murmurs, or rubs. Normal PMI, no JVD. No pulse deficits. Respiratory: Lungs have equal breath sounds bilaterally, clear to auscultation and percussion. No rales, rhonchi or wheezes noted. No increased work of breathing, no retractions or nasal flaring. Abdomen/GI: Soft, non-tender, with normal bowel sounds. No distension or tympany. No guarding or rebound. No evidence of tenderness throughout. Back: No spinal tenderness. No costovertebral tenderness. Full range of motion. Male : Normal genitalia with no discharge or lesions. Skin: Warm, dry with normal turgor. Normal color with no rashes, no lesions, and no evidence of cellulitis. MS/ Extremity: Pulses equal, no cyanosis. Neurovascular intact. Full, normal range of motion. Neuro: Awake and alert, GCS 15, oriented to person, place, time, and situation. Cranial nerves II-XII grossly intact. Motor strength 5/5 in all extremities. Sensory grossly intact. Cerebellar exam normal. Normal gait. Psych: Awake, alert, with orientation to person, place and time. Behavior, mood, and affect are within normal limits. 15:10 ECG was reviewed by the Attending Physician. 15:15 ECG was reviewed by the Attending Physician. [facility] 17:03 Skin: induration, that is mild is noted, located on the right axilla. [facility] Vital Signs: 13:17 BP 117 / 87; Pulse 70; Resp 15; Temp 98.0(O); Pulse Ox 100% on R/A; Weight 74.84 kg; 3 Height 6 ft. 0 in. (182.88 cm); Pain 8/10; 14:00 BP 112 / 76; Pulse 67; Resp 14; Pulse Ox 97% on R/A; 3 15:00 BP 129 / 87; Pulse 81; Resp 16; Pulse Ox 100% on R/A; 3 16:00 BP 116 / 83; Pulse 55; Resp 20; Pulse Ox 100% on R/A; 3 17:00 BP 122 / 82; Pulse 78; Resp 18; Pulse Ox 100% on R/A; eh3 13:17 Body Mass Index 22.38 (74.84 kg, 182.88 cm) [facility] MDM: 13:19 Patient medically screened. [facility] 15:16 Differential diagnosis: abnormal EKG, acute myocardial infarction, acute pericarditis, logan anxiety, chest wall pain, congestive heart failure hiatal hernia, pancreatitis, pericarditis, pleurisy, pneumonia, pneumothorax, pulmonary embolus, stable angina, unstable angina. HEART Score: History: Slightly Suspicious (0), ECG: Non specific repolarization disturbance / LBTB / PM (1), Age: > 45 and < 65 years (1), Risk Factors: > or = 3 Risk factors for atherosclerotic disease (2), [Hypercholesterolemia] [Hypertension] [+ Family HX] Troponin: < or = 1 x Normal Limit (0). The patient was given aspirin in the Emergency Department. The patient's deep vein thrombosis risk score was calculated as follows: Total Score: 0. This patient was found to be at low risk for a deep vein thrombosis by using the Well's assessment criteria. The patient's pulmonary embolism risk score was calculated as follows: Total Score: 0-2 points. This patient was found to be at low risk for a pulmonary embolism by using the Well's assessment criteria. WALDEMAR Risk Score: 1 - Three or more CAD risk factors, [Family Hx], [HTN], [Elevated Cholesterol], TOTAL SCORE =. Data reviewed: vital signs, nurses notes, lab test result(s), EKG, radiologic studies, CT scan, plain films. Data interpreted: sales operations analyst: rate is 67 beats/min, rhythm is regular, Pulse oximetry: on room air is 100 %. Test interpretation: by ED physician or midlevel provider: ECG, plain radiologic studies. Counseling: I had a detailed discussion with the patient and/or guardian regarding: the historical points, exam findings, and any diagnostic results supporting the discharge/admit diagnosis, lab results, radiology results, the need for outpatient follow up, for definitive care, a metal hardener, a family practitioner. 12/17 13:19 Order name: Basic Metabolic Panel; Complete Time: 14:51 logan 12/17 13:19 Order name: CBC with Diff; Complete Time: 14:51 logan 12/17 13:19 Order name: LFT's; Complete Time: 14:51 logan 12/17 13:19 Order name: Magnesium; Complete Time: 14:51 logan 12/17 13:19 Order name: NT PRO-BNP; Complete Time: 14:51 logan 12/17 13:19 Order name: PT-INR; Complete Time: 14:51 12/17 13:19 Order name: Troponin HS; Complete Time: 14:51 logan 12/17 13:19 Order name: XRAY Chest (1 view); Complete Time: 15:01 logan 12/17 13:19 Order name: Lipase; Complete Time: 14:51 logan 12/17 13:19 Order name: SARS RAPID; Complete Time: 14:51 logan 12/17 14:06 Order name: CT Chest For PE Angio; Complete Time: 15:01 logan 12/17 14:52 Order name: Troponin High Sensitivity: 330PM; Complete Time: 16:14 logan 12/17 16:24 Order name: Urine Dipstick-Ancillary EDAZ 12/17 13:19 Order name: EKG; Complete Time: 13:20 logan 12/17 13:19 Order name: Cardiac monitoring; Complete Time: 13:22 12/17 13:19 Order name: EKG - Nurse/Tech; Complete Time: 13:39 [facility] 12/17 13:19 Order name: IV Saline Lock; Complete Time: 13:21 [facility] 12/17 13:19 Order name: Labs collected and sent; Complete Time: 13:39 12/17 13:19 Order name: O2 Per Protocol; Complete Time: 13:22 12/17 13:19 Order name: O2 Sat Monitoring; Complete Time: 13:22 logan 12/17 13:19 Order name: Urine Dipstick-Ancillary (obtain specimen); Complete Time: 16:23 [facility] 12/17 14:52 Order name: EKG; Complete Time: 14:53 [facility] 12/17 14:52 Order name: EKG - Nurse/Tech; Complete Time: 15:16 [facility] EC:10 Rate is 53 beats/min. Rhythm is regular. QRS Bogart is Normal. IN interval is normal. QRS logan interval is normal. QT interval is normal. No Q waves. T waves are Normal. No ST changes noted. Clinical impression: Sinus bradycardia. Interpreted by me. Reviewed by me. 15:15 Rate is 51 beats/min. Rhythm is regular. QRS Bogart is Normal. IN interval is normal. QRS logan interval is normal. QT interval is normal. No Q waves. T waves are Normal. No ST changes noted. Clinical impression: Sinus bradycardia and No evidence of ischemia. Interpreted by me. Reviewed by me. Administered Medications: 14:00 Drug: Aspirin Chewable Tablet 162 mg Route: PO; 3 14:28 Follow up: Response: No adverse reaction 3 14:27 Drug: morphine 4 mg Route: IVP; Infused Over: 4 mins; Site: right antecubital; eh3 15:16 Follow up: Response: Pain is unchanged, physician notified eh3 14:27 Drug: Zofran (Ondansetron) 4 mg Route: IVP; Site: right antecubital; eh3 15:16 Follow up: Response: No adverse reaction 3 14:27 Drug: Pepcid (famotidine) 20 mg Route: IVP; Site: right antecubital; eh3 15:16 Follow up: Response: No adverse reaction 3 15:16 Drug: Potassium Effervescent Tablet 25 mEq Route: PO; eh3 15:30 Follow up: Response: No adverse reaction eh3 17:40 Drug: Doxycycline 100 mg Route: PO; eh3 18:05 Follow up: Response: No adverse reaction eh3 17:40 Drug: Bactrim (trimethoprim-sulfamethoxazole) (160 mg-800 mg (DS) 1 tablet Route: PO; eh3 18:06 Follow up: Response: No adverse reaction eh3 Disposition Summary: 12/17/21 16:14 Discharge Ordered Location: Home logan Problem: new logan Symptoms: have improved logan Condition: Fair logan Diagnosis - Pleurisy logan - Chest pain, unspecified logan - Chest pain on breathing logan - Hypokalemia logan - Localized enlarged lymph nodes - RIGHT AXILLA logan Followup: logan - With: Private Physician - When: 2 - 3 days - Reason: Recheck today's complaints, Continuance of care, Re-evaluation by your physician Followup: logan - With: - When: 2 - 3 days - Reason: Recheck today's complaints, Re-evaluation by your physician Followup: logan - With: Osvaldo Bull MD - When: 2 - 3 days - Reason: Recheck today's complaints, Re-evaluation by your physician Discharge Instructions: - Discharge Summary Sheet logan - Nonspecific Chest Pain, Adult logan - Chest Wall Pain logan - Pleurisy logan - Chest Wall Pain, [id number] logan - Nonspecific Chest Pain, Adult, [id number] logan - Aspirin and Your Heart logan - Lymphadenopathy logan Forms: - Medication Reconciliation Form logan - Thank You Letter logan - Antibiotic Education logan - Prescription Opioid Use [facility] Prescriptions: - Pepcid 20 mg Oral Tablet - take 1 tablet by ORAL route every 12 hours for 10 days; 20 tablet; Refills: 0, logan Product Selection Permitted - Motrin IB 200 mg Oral Tablet - take 2 tablet by ORAL route every 6 hours As needed as needed with food; 30 logan tablet; Refills: 0, Product Selection Permitted - Doxycycline Hyclate 100 mg Oral Tablet - take 1 tablet by ORAL route every 12 hours; 20 tablet; Refills: 0, Product logan Selection Permitted - Bactrim DS 800-160 mg Oral Tablet - take 1 tablet by ORAL route every 12 hours for 10 days; 20 tablet; Refills: 0, [facility] Product Selection Permitted - Tylenol-Codeine #3 300 mg-30 mg Oral - take 2 tablet by ORAL route every 6 hours; 20 tablet; Refills: 0, Product logan Selection Permitted Signatures: Dispatcher [employer] Eloy Negrete MD MD cha Hall, Erin RN RN eh3 Corrections: (The following items were deleted from the chart) 13:22 13:20 SARS-COV-2 Antigen Rapid+[id number].LAB.BRZ ordered. DARIUS MCCOY
[2021-12-17 16:24] LABS: Urine Blood Negative (Negative); Urine Glucose Negative (Negative); Urine Protein Negative (Negative); Urine pH 6.5 (5.0-7.0)
[2021-12-17] MEDS ORDERED: SMZ./TMP. 800/160 MG TABLET ONE (17:41)
[2021-12-17] MEDS ORDERED: DOXYCYCLINE 100 MG CAP PO ONE (17:41)
[2021-12-17 18:25] VITALS: TEMP 98
[2021-12-17 18:28] VITALS: O2SAT 100
[2021-12-17 18:30] VITALS: BP 122/82
--- NOTE | 2021-12-19 16:57 | EKG ---
Test Date: 2021-12-17 Test Time: 15:15:31 Duct Cleaner: EREN MEASUREMENT RESULTS: Intervals: Rate: 51 HI: 164 QRSD: 96 QT: 426 QTc: 392 [place]: P: 1 HI: 164 QRS: 97 T: 87 INTERPRETIVE STATEMENTS: Sinus bradycardia Rightward axis Borderline ECG Compared to ECG 12/17/2021 13:31:47 No significant changes Electronically Signed On 12-19-21 16:54:21 CDT by Santiago Bartlett
--- NOTE | 2021-12-19 16:58 | EKG ---
Test Date: 2021-12-17 Test Time: 13:31:47 Day Care Home Mother: EREN MEASUREMENT RESULTS: Intervals: Rate: 53 MO: 172 QRSD: 98 QT: 412 QTc: 386 [place]: P: 2 MO: 172 QRS: 98 T: 86 INTERPRETIVE STATEMENTS: Sinus bradycardia Rightward axis Borderline ECG Compared to ECG 03/03/2021 16:44:19 Right-axis deviation now present Sinus rhythm no longer present Electronically Signed On 12-19-21 16:54:31 CDT by Santiago Bartlett
== END 2021-12-17 18:07 | disposition home or self-care (01) ==
LOC: ER 13:04
DX: R09.1 Pleurisy (principal); R07.89 Other chest pain; R07.1 Chest pain on breathing; E87.6 Hypokalemia; R59.0 Localized enlarged lymph nodes; R05.9 Cough, unspecified; Z88.8 Allergy status to other drugs, medicaments and biological substances
CPT/HCPCS: 36415; 71045; 71275; 80048; 80076; 81003; 83690; 83735; 83880; 84484; 85025; 85610; 87811; 93005; 96374; 96375; 99284; J2405; Q9967

== ENCOUNTER → 2023-03-08 | Emergency (ER) | payer OTHER, SELFPAY ==
[2023-03-08 07:24] LABS: Absolute Lymphocytes (CBC) 2.3 K/uL (0.7-4.9); Hematocrit 42.8 % (39.6-49.0); Lymphocytes % 45.4 % (15.3-44.8); MCV 95.9 fL (80-100); MPV 8.6 fL (7.6-11.3); Platelets 207 thou/uL (152-406); RBC Red Blood Cell Count 4.46 M/uL (4.33-5.43)
[2023-03-08 07:36] LABS: Albumin 3.9 g/dL (3.4-5.0); Bilirubin Direct 0.1 mg/dL (0-0.2); Bilirubin Indirect, Calculated 0.4 mg/dL (0.2-0.8); Bilirubin Total 0.5 mg/dL (0.2-1.0); Protein, Total 7.9 g/dL (6.4-8.2); Troponin High Sensitivity 4.6 pg/mL (<58.9)
[2023-03-08 07:39] LABS: Magnesium 2.1 mg/dL (1.6-2.4)
--- NOTE | 2023-03-08 08:30 | RAD REPORT ---
EXAM DESCRIPTION: Liam Single View03/08/2023 8:21 am CLINICAL HISTORY: Chest pain COMPARISON: 2021 FINDINGS: Postsurgical changes involve the left lung with a chronic benign-appearing opacity left up per hemithorax. The lungs appear clear of acute infiltrate. The heart is normal size IMPRESSION: No acute abnormalities displayed
[2023-03-08 08:55] LABS: Blood Morphology Comment NOT SEEN (NOT SEEN); Platelet Estimate ADEQ
--- NOTE | 2023-03-08 11:34 | RAD REPORT ---
EXAM DESCRIPTION: CT - Thorax Wo Con - 03/08/2023 11:06 am CLINICAL HISTORY: Chest pain COMPARISON: 2021 TECHNIQUE: Computed axial tomography of the chest was obtained. Contrast was not requested. All CT scans are performed using dose optimization technique as appropriate and may include automated exposure control or mA/KV adjustment according to patient size. FINDINGS: The evaluation of mediastinum, dom and vessels is limited secondary to lack of IV contras t administration. Left upper lobe lobectomy. Mild scarring within the lungs. Mild right basilar atelectasis unchanged. Right lung hyperaerated No mediastinal or hilar lymphadenopathy is seen. A pleural effusion is not present. No pericardial effusion IMPRESSION: No acute abnormality displayed
--- NOTE | 2023-03-08 11:51 | EDPHYS ---
Physician Documentation [facility] Name: Dheeraj Narvaez Age: 52 yrs Sex: Male : 1970 Arrival Date: 03/08/2023 Time: 06:56 Bed 8 Private MD: Trav Hart ED Physician Roland Nelson HPI: 03/08 07:38 This 52 yrs old Male presents to ER via Ambulatory with complaints of Chest Pain. ms3 07:38 52-year-old male with past medical history of aspergillus, C. difficile, cardiomegaly, ms3 alpha-1 antitrypsin, emphysema, pericarditis presents emergency department for chest pain/shortness of breath that began at 3 AM. Patient states pain is left-sided and radiates to his back. Patient states pain is worse with breathing. Patient describes the pain as sharp and stabbing and rates the pain a 9/10. Patient denies nausea, vomiting, headache.. Historical: - Allergies: 07:06 Decadron; kc6 - PMHx: 07:06 aspergillis; blood infection; C DIFF; cardiomegaly; EF 20%; Mx pneumothorax; kc6 pericarditis; Pneumonia; alpha 1 deficiency (Pneumonia); - PSHx: 07:06 L upper lobe removed; large intestine; kc6 - Immunization history:: Adult Immunizations up to date. - Social history:: Smoking status: Patient denies any tobacco usage or history of. ROS: 07:38 Constitutional: Negative for fever, and chills. ms3 07:38 Respiratory: Negative for shortness of breath, cough, wheezing, and pleuritic chest pain, Abdomen/GI: Negative for abdominal pain, nausea, vomiting, diarrhea, and constipation, MS/Extremity: Negative for injury and deformity, Skin: Negative for injury, rash, and discoloration, 07:38 Cardiovascular: Positive for chest pain, 07:38 All other systems are negative, Exam: 07:38 Constitutional: This is a well developed, well nourished patient who is awake, alert, ms3 and in no acute distress. Head/Face: Normocephalic, atraumatic. Neck: Trachea midline, no cervical lymphadenopathy. Supple, full range of motion without nuchal rigidity, or vertebral point tenderness. No Meningismus. Chest/axilla: Normal chest wall appearance and motion. Nontender with no deformity. Cardiovascular: Regular rate and rhythm with a normal S1 and S2. No gallops, murmurs, or rubs. Normal PMI, no JVD. No pulse deficits. Respiratory: Lungs have equal breath sounds bilaterally, clear to auscultation and percussion. No rales, rhonchi or wheezes noted. No increased work of breathing, no retractions or nasal flaring. Abdomen/GI: Soft, non-tender, with normal bowel sounds. No distension or tympany. No guarding or rebound. No evidence of tenderness throughout. Skin: Warm, dry with normal turgor. Normal color with no rashes, no lesions, and no evidence of cellulitis. MS/ Extremity: Pulses equal, no cyanosis. Neurovascular intact. Full, normal range of motion. 07:52 ECG was reviewed by the Attending Physician. ms3 Vital Signs: 07:05 BP 124 / 83; Pulse 66; Resp 18 S; Pulse Ox 98% on R/A; Weight 74.84 kg (R); Height 6 kc6 ft. 1 in. ; 08:22 BP 114 / 89; Pulse 63; Resp 18; Temp 97.5; Pulse Ox 100% on R/A; Weight 74.84 kg; mb9 Height 5 ft. 7 in. ; 11:01 BP 120 / 96; Pulse 62; Resp 18; Pulse Ox 100% ; mb9 08:22 Body Mass Index 25.84 (74.84 kg, 170.18 cm) mb9 MDM: 07:37 Patient medically screened. ms3 07:38 Differential diagnosis: abnormal EKG, acute myocardial infarction, acute pericarditis, ms3 chest wall pain, pulmonary embolus. 11:51 HEART Score: History: Slightly Suspicious (0), ECG: Normal (0), Age: > 45 and < 65 ms3 years (1), Risk Factors: 1 or 2 risk factors (1), Troponin: < or = 1 x Normal Limit (0), Total Score = 2. Data reviewed: vital signs, nurses notes, lab test result(s), EKG, radiologic studies, and as a result, I will discharge patient. Independent interpretation of the following test(s) in the Emergency Department EKG: See my EKG interpretation above X-Ray: My interpretation is Chest x-ray image reviewed by me does not reveal pneumonia or pneumothorax. Surgical clips present in the left upper chest. Care significantly affected by the following Social Determinants of Health: Poor access to healthcare and/or lack of insurance. Counseling: I had a detailed discussion with the patient and/or guardian regarding the historical points, exam findings, and any diagnostic results supporting the discharge/admit diagnosis, lab results, radiology results, the need for outpatient follow up, to return to the emergency department if symptoms worsen or persist or if there are any questions or concerns that arise at home. Special discussion: Based on the patient's history, exam, and Dx evaluation, there is no indication for emergent intervention or inpatient Tx. It is understood by the patient/guardian that if the Sx's persist or worsen they need to return immediately for re-evaluation. ED course: Patient states he was to have CT without contrast performed today and requested CT be performed. Discussed results of labs, EKG, chest x-ray, CT without contrast with patient. Patient to follow-up with primary care physician in 1 to 2 days. Patient understands agrees with plan. All questions were answered. Return precautions discussed include shortness of breath, worsening pain, or any other concerns. On reevaluation patient symptoms improved, patient is alert and oriented x 4, no apparent distress, nontoxic-appearing, ambulatory number department, speaking full sentences. 03/08 07:07 Order name: Basic Metabolic Panel; Complete Time: 08:28 ms3 03/08 07:07 Order name: CBC with Diff; Complete Time: 09:20 ms3 03/08 07:07 Order name: LFT's; Complete Time: 08:28 ms3 03/08 07:07 Order name: Magnesium; Complete Time: 08:28 ms3 03/08 07:07 Order name: Troponin HS; Complete Time: 08:28 ms3 03/08 07:39 Order name: D-Dimer; Complete Time: 08:28 ms3 03/08 08:55 Order name: Manual Differential; Complete Time: 09:20 EDMS 03/08 09:24 Order name: Troponin High Sensitivity; Complete Time: 10:51 EDMS 03/08 07:07 Order name: XRAY Chest (1 view); Complete Time: 08:31 ms3 03/08 11:06 Order name: Thorax Wo Con; Complete Time: 11:41 EDMS 03/08 07:07 Order name: EKG; Complete Time: 07:08 ms3 03/08 07:07 Order name: Cardiac monitoring; Complete Time: 07:09 ms3 03/08 07:07 Order name: EKG - Nurse/Tech; Complete Time: 07:09 ms3 03/08 07:07 Order name: IV Saline Lock; Complete Time: 07:12 ms3 03/08 07:07 Order name: Labs collected and sent; Complete Time: 07:12 ms3 03/08 07:07 Order name: O2 Per Protocol; Complete Time: 07:09 ms3 03/08 07:07 Order name: O2 Sat Monitoring; Complete Time: 07:09 ms3 03/08 08:32 Order name: Repeat Cardiac Enzymes at: Repeat troponin at 0912; Complete Time: 09:17 ms3 EC:52 Rate is 68 beats/min. Rhythm is regular. QRS New Site is Normal. LA interval is normal. QRS ms3 interval is normal. Clinical impression: Normal ECG. Interpreted by me. Reviewed by me. Administered Medications: No medications were administered Disposition Summary: 03/08/23 11:50 Discharge Ordered Notes: Location: Home ms3 Condition: Stable ms3 Diagnosis - Chest pain, unspecified ms3 Followup: ms3 - With: Trav Hart DO - When: 1 - 2 days - Reason: Recheck today's complaints Discharge Instructions: - Discharge Summary Sheet ms3 - Nonspecific Chest Pain, Adult ms3 Forms: - Medication Reconciliation Form ms3 - Thank You Letter ms3 - Antibiotic Education ms3 - Prescription Opioid Use ms3 - Patient Portal Instructions ms3 - Leadership Thank You Letter ms3 Signatures: Dispatcher [employer] EDRoland Eastman DO DO ms3 Izabel Ruby, RN RN kc6 Corrections: (The following items were deleted from the chart) 07:07 07:06 PSHx: L upper lobe removed; kc6 kc6 11:30 11:29 Thorax Wo Con+CT.RAD.BRZ ordered. EDMS EDMS
--- NOTE | 2023-03-08 11:51 | ER ---
Nurse's Notes [facility] Name: Dheeraj Narvaez Age: 52 yrs Sex: Male : 1970 Arrival Date: 03/08/2023 Time: 06:56 Bed 8 Private MD: Trav Hart Diagnosis: Chest pain, unspecified Presentation: 03/08 07:05 Chief complaint: Patient states: chest pain that began early this morning. states it kc6 woke him out of his sleep. Coronavirus screen: At this time, the client does not indicate any symptoms associated with coronavirus-19. Ebola Screen: No symptoms or risks identified at this time. Initial Sepsis Screen: Does the patient meet any 2 criteria? No. Patient's initial sepsis screen is negative. Does the patient have a suspected source of infection? No. Patient's initial sepsis screen is negative. Risk Assessment: Do you want to hurt yourself or someone else? Patient reports no desire to harm self or others. Onset of symptoms was March 08, 2023. 07:05 Method Of Arrival: Ambulatory [facility] 07:05 Acuity: KAMARI 3 kc6 Triage Assessment: 07:06 General: Appears in no apparent distress. comfortable, well groomed, well developed, kc6 Behavior is calm, cooperative, appropriate for age. Pain: Complains of pain in anterior aspect of left upper chest and left lateral anterior chest. EENT: No signs and/or symptoms were reported regarding the EENT system. Neuro: Level of Consciousness is awake, alert, obeys commands, Oriented to person, place, time, situation, Appropriate for age. Cardiovascular: Reports chest pain, Heart tones S1 S2 present Capillary refill < 3 seconds. Respiratory: Reports shortness of breath Airway is patent Trachea midline Respiratory effort is even, unlabored, Respiratory pattern is regular, symmetrical. GI: No signs and/or symptoms were reported involving the gastrointestinal system. : No signs and/or symptoms were reported regarding the genitourinary system. Derm: No signs and/or symptoms reported regarding the dermatologic system. Skin is intact, is healthy with good turgor, Skin is pink, warm \\T\\ dry. Musculoskeletal: No signs and/or symptoms reported regarding the musculoskeletal system. Circulation, motion, and sensation intact. Capillary refill < 3 seconds, Range of motion: intact in all extremities. Historical: - Allergies: 07:06 Decadron; kc6 - PMHx: 07:06 aspergillis; blood infection; C DIFF; cardiomegaly; EF 20%; Mx pneumothorax; kc6 pericarditis; Pneumonia; alpha 1 deficiency (Pneumonia); - PSHx: 07:06 L upper lobe removed; large intestine; kc6 - Immunization history:: Adult Immunizations up to date. - Social history:: Smoking status: Patient denies any tobacco usage or history of. Screenin:08 [facility] ED Fall Risk Assessment (Adult) History of falling in the last 3 months, kc6 including since admission No falls in past 3 months (0 pts) Confusion or Disorientation No (0 pts) Intoxicated or Sedated No (0 pts) Impaired Gait No (0 pts) Mobility Assist Device Used No (0 pt) Altered Elimination No (0 pt) Score/Fall Risk Level 0 - 2 = Low Risk. Abuse screen: Denies threats or abuse. Denies injuries from another. Nutritional screening: No deficits noted. Tuberculosis screening: No symptoms or risk factors identified. Assessment: 07:08 Reassessment: please see triage assessment. kc6 07:13 Cardiovascular: Heart tones S1 S2 present. Respiratory: Reports shortness of breath mb9 Breath sounds are clear bilaterally. GI: Bowel sounds present X 4 quads. Abd is soft and non tender X 4 quads. Patient currently denies nausea, vomiting. 09:15 Reassessment: No changes from previously documented assessment. Patient and/or family mb9 updated on plan of care and expected duration. Pain level reassessed. pt states, "I forgot to tell you guys but for over 1 week I've had no feeling in both of my feet. Also, I want a CT of my lungs. It's really important I have that done." ERP notified. 11:01 Reassessment: No changes from previously documented assessment. Patient and/or family mb9 updated on plan of care and expected duration. Pain level reassessed. Patient is alert, oriented x 3, equal unlabored respirations, skin warm/dry/pink. Vital Signs: 07:05 BP 124 / 83; Pulse 66; Resp 18 S; Pulse Ox 98% on R/A; Weight 74.84 kg (R); Height 6 kc6 ft. 1 in. ; 08:22 BP 114 / 89; Pulse 63; Resp 18; Temp 97.5; Pulse Ox 100% on R/A; Weight 74.84 kg; mb9 Height 5 ft. 7 in. ; 11:01 BP 120 / 96; Pulse 62; Resp 18; Pulse Ox 100% ; mb9 08:22 Body Mass Index 25.84 (74.84 kg, 170.18 cm) mb9 ED Course: 06:57 Patient arrived in ED. rg4 06:58 Trav Hart DO is Private Physician. rg4 07:01 Maxine Lee, RN is Primary Nurse. mb9 07:04 Roland Nelson DO is Attending Physician. ms3 07:06 Triage completed. kc6 07:06 Arm band placed on. kc6 07:08 Patient has correct armband on for positive identification. Placed in gown. Bed in low kc6 position. Call light in reach. Side rails up X 1. Adult w/ patient. Client placed on continuous cardiac and pulse oximetry monitoring. NIBP monitoring applied. singing messenger on. 07:08 Patient maintains SpO2 saturation greater than 95% on room air. kc6 07:12 Basic Metabolic Panel Sent. mb9 07:12 CBC with Diff Sent. mb9 07:12 LFT's Sent. mb9 07:12 Magnesium Sent. mb9 07:12 Troponin HS Sent. mb9 07:13 EKG done, by ED staff, reviewed by Roland Nelson DO. Inserted saline lock: 20 gauge in mb9 right antecubital area, using aseptic technique. 08:13 XRAY Chest (1 view) In Process Unspecified. EDMS 11:06 Thorax Wo Con In Process Unspecified. EDMS 11:50 Trav Hart DO is Referral Physician. ms3 11:52 No provider procedures requiring assistance completed. IV discontinued. mb9 Administered Medications: No medications were administered Medication: 07:12 VIS not applicable for this client. mb9 Outcome: 11:50 Discharge ordered by . ms3 11:59 Discharged to home with family, mb9 11:59 Condition: stable 11:59 Discharge instructions given to patient, family, Instructed on discharge instructions, follow up and referral plans. Demonstrated understanding of instructions, follow-up care, 12:00 Patient left the ED. mb9 Signatures: Dispatcher [employer] EDStephy Collins rg4 Roland Nelson DO DO ms3 Izabel Ruby, RN RN kc6 Maxine Lee RN RN mb9 Corrections: (The following items were deleted from the chart) 07:07 07:06 PSHx: L upper lobe removed; kc6 kc6 10:09 08:22 BP 114 / 89; Pulse 63bpm; Resp 18bpm; Pulse Ox 100% RA; mb9 mb9
[2023-03-08 12:27] VITALS: BP 120/96; TEMP 97.5; O2SAT 100
--- NOTE | 2023-03-09 17:37 | EKG ---
Test Date: 2023-03-08 Test Time: 07:06:22 Maintenance Mechanic Supervisor: FAYE MEASUREMENT RESULTS: Intervals: Rate: 68 IA: 168 QRSD: 90 QT: 384 QTc: 408 [place]: P: 29 IA: 168 QRS: 84 T: 86 INTERPRETIVE STATEMENTS: Normal sinus rhythm Normal ECG Compared to ECG 12/17/2021 15:15:31 Sinus bradycardia no longer present Right-axis deviation no longer present Electronically Signed On 03-09-23 17:34:28 EXECUTIVE COMPENSATION ANALYST by Santiago Bartlett
== END ==
LOC: ER 06:56
DX: R07.89 Other chest pain (principal)
CPT/HCPCS: 36415; 71045; 71250; 80048; 80076; 83735; 84484; 85025; 85379; 93005; 99285

== ENCOUNTER → 2023-05-22 | Emergency (ER) | payer OTHER ==
[~2023-05-22] MED LIST: ACETAMINOPHEN 325 MG TABLET ONE; LEVALBUTEROL 1.25 MG/3 ML NEB ONE; Levofloxacin 750mg IV 750 MG/150 ML BAG IV ONE; METHYLPREDNISOLONE 125 MG INJ ONE; NA CHLORIDE 0.9% 0 ML ONE; NA CHLORIDE 0.9% 500 ML ONE
--- NOTE | 2023-05-22 20:11 | RAD REPORT ---
EXAM DESCRIPTION: RAD - Chest Single View - 05/22/2023 8:00 pm CLINICAL HISTORY: Cough;Dyspnea Chest pain. COMPARISON: Chest Single View dated 03/08/2023; Chest Single View dated 12/17/2021; Chest Single View dated 03/03/2021; Chest Single View dated 09/13/2019 FINDINGS: Portable technique limits examination quality. Postsurgical changes are present left upper hemithorax. The lungs are otherwise clear. The heart is n ormal in size. No displaced fractures. IMPRESSION: No acute intrathoracic process suspected.
[2023-05-22 20:25] LABS: Absolute Eosinophils 0.2 K/uL (0-0.5); Absolute Lymphocytes (CBC) 1.5 K/uL (0.7-4.9); Absolute Monocytes 0.5 K/uL (0.1-1.3); Absolute Neutrophil 3.8 K/uL (1.8-8.0); Basophils % 0.7 % (0-1.3); Hematocrit 44.5 % (39.6-49.0); Hemoglobin 15.3 g/dL (13.6-17.9); Lymphocytes % 24.9 % (15.3-44.8); MCH 32.8 pg (27.0-35.0); MCHC 34.3 g/dL (32.0-36.0); MCV 95.6 fL (80-100); MPV 8.9 fL (7.6-11.3); Monocytes % 8.3 % (3.3-12.3); Neutrophils % 63.1 % (41.7-73.7); Nucleated Red Blood Cells % 0.7 % (0-0); Platelets 185 thou/uL (152-406); RBC Red Blood Cell Count 4.65 M/uL (4.33-5.43); Red Cell Distribution Width 13.2 % (12.1-15.2)
[2023-05-22 20:26] LABS: Albumin 3.9 g/dL (3.4-5.0); Albumin/Globulin Ratio 0.9 (1.1-1.8); Anion Gap 6.4 mEq/L (5.0-15.0); Bilirubin Total 0.6 mg/dL (0.2-1.0); Globulin 4.4 g/dL (2.3-3.5); Potassium 3.4 mEq/L (3.5-5.1); Protein, Total 8.3 g/dL (6.4-8.2); Troponin High Sensitivity 3.5 pg/mL (<58.9)
[2023-05-22 20:29] LABS: PT Prothrombin Time 11.6 SECONDS (9.5-12.5); PTT, Activated Partial Thromb 30.9 SECONDS (24.3-36.9); Protime INR 1.06
[2023-05-22 20:32] LABS: SARS-CoV-2 Antigen CONTROL BLUE LINE VIS/BG OK; SARS-CoV-2 Antigen Rapid Res Negative (Negative)
--- NOTE | 2023-05-22 20:45 | RAD REPORT ---
EXAM DESCRIPTION: CT - Chest For Pe Angio - 05/22/2023 8:40 pm CLINICAL HISTORY: Chest pain. DYSPNEA COMPARISON: Thorax Wo Con dated 03/08/2023 TECHNIQUE: CT angiogram of the pulmonary arteries was performed with MIP. All CT scans are performed using dose optimization technique as appropriate and may include automated exposure control or mA/KV adjustment according to patient size. FINDINGS: No evidence of pulmonary thromboembolism. No acute aortic finding demonstrated. The lungs are emphysematous with postsurgical changes in the superior left hemithorax. No significant pericardial or pleural fluid. No concerning bony finding. IMPRESSION: No evidence of pulmonary thromboembolism. No acute lung findings. Mild emphysema with postsurgical changes left superior hemithorax.
--- NOTE | 2023-05-22 21:20 | EDPHYS ---
Physician Documentation [facility] Name: Dheeraj Narvaez Age: 53 yrs Sex: Male : 1970 Arrival Date: 05/22/2023 Time: 19:06 Bed 8 Private MD: ED Physician Conrado Elizabeth HPI: 05/21 19:29 This 53 yrs old Male presents to ER via Ambulatory with complaints of Fever, Shortness rn Of Breath. 19:29 The patient reports fever, that was measured at 104 degrees Fahrenheit. Onset: The rn symptoms/episode began/occurred yesterday. Modifying factors: there are no obvious modifying factors. Associated signs and symptoms: Pertinent positives: chills, cough, shortness of breath, Pertinent negatives: abdominal pain, altered mental status, hemoptysis, skin rash. Severity of symptoms: At their worst the symptoms were mild in the emergency department the symptoms are unchanged. The patient has experienced similar episodes in the past. Patient reports 2 days of fever, Tmax 104, associated with nonproductive cough and shortness of breath. Also has history of spontaneous pneumothorax. Denies trauma. No hemoptysis. No history of DVT or PE.. Historical: - Allergies: 19:20 Decadron; nj1 - PMHx: 19:20 alpha 1 deficiency (Pneumonia); aspergillis; blood infection; C DIFF; cardiomegaly; EF nj1 20%; Mx pneumothorax; pericarditis; Pneumonia; - PSHx: 19:20 L upper lobe removed; large intestine; nj1 - Immunization history:: Client reports having NOT received the Covid vaccine. - Social history:: Smoking status: Patient denies any tobacco usage or history of. - Family history:: not pertinent. - Hospitalizations: : No recent hospitalization is reported. ROS: 19:29 Constitutional: Positive for fever and chills Eyes: Negative for injury, pain, redness, rn and discharge, ENT: Negative for injury, pain, and discharge, Cardiovascular: Positive for pleuritic left-sided chest pain with deep breath Respiratory: Positive for cough and shortness of breath Abdomen/GI: Negative for abdominal pain, nausea, vomiting, diarrhea, and constipation, MS/Extremity: Negative for injury and deformity, Skin: Negative for injury, rash, and discoloration, Neuro: Negative for headache, weakness, numbness, tingling, and seizure, Exam: 19:29 Constitutional: This is a well developed, well nourished patient who is awake, alert, rn and in no acute distress. Speaking full sentences, unlabored and ambulatory to triage without difficulty. Head/Face: Normocephalic, atraumatic. ENT: No stridor Cardiovascular: Tachycardic, regular. Respiratory: Mild tachypnea, wheezing bilateral bases, no retractions, speaking full sentences Abdomen/GI: Soft, nontender MS/ Extremity: Pulses equal, no cyanosis. Neurovascular intact. Full, normal range of motion. Equal circumference. Neuro: Awake and alert, GCS 15 20:13 ECG was reviewed by the Attending Physician. rn Vital Signs: 19:16 BP 138 / 104; Pulse 114; Resp 20; Temp 98.4; Pulse Ox 100% ; Weight 76.2 kg; Height 6 nj1 ft. 0 in. ; Pain 8/10; 20:00 BP 140 / 95; Pulse 100; Resp 20; Pulse Ox 99% on R/A; jb4 20:52 BP 140 / 91; Pulse 102; Resp 18; Temp 100(O); Pulse Ox 100% on R/A; jb4 22:10 BP 116 / 90; Pulse 106; Resp 15; Temp 99.1(O); Pulse Ox 97% on R/A; jb4 19:16 Body Mass Index 22.78 (76.20 kg, 182.88 cm) nj1 19:16 Pain Scale: Adult nj1 20:52 Provider notified of Temp. Recieved verbal order for 650mg of Tylenol PO. jb4 MDM: 19:12 Patient medically screened. rn 20:56 Differential diagnosis: viral Infection, bacterial infection, URI, bronchitis, rn pneumonia Pneumothorax, pulmonary embolism. Data reviewed: vital signs, nurses notes, lab test result(s), EKG, radiologic studies, CT scan, plain films, and as a result, I will discharge patient. Independent interpretation of the following test(s) in the Emergency Department X-Ray: My interpretation is Chest x-ray images negative for pneumothorax or lobar pneumonia per my interpretation. Care significantly affected by the following chronic conditions: Chronic Obstructive Pulmonary Disease. Scoring Tools PERC Rule for PE Age > /= 50 Yes (1) HR > /= 100 Yes (1) O2 Sat Room Air < 95% No (0) Unilateral leg swelling No (0) Hemoptysis No (0) Recent surgery or trauma </= 4 weeks ago, requiring treatment with General Anesthesia No (0) Prior PE or DVT No (0) Hormone use No (0). Counseling: I had a detailed discussion with the patient and/or guardian regarding the historical points, exam findings, and any diagnostic results supporting the discharge/admit diagnosis, lab results, radiology results, the need for outpatient follow up, to return to the emergency department if symptoms worsen or persist or if there are any questions or concerns that arise at home. Response to treatment: the patient's symptoms have markedly improved after treatment, and as a result, I will discharge patient. Special discussion: I discussed with the patient/guardian in detail that at this point there is no indication for admission to the hospital. It is understood, however, that if the symptoms persist or worsen the patient needs to return immediately for re-evaluation. ED course: Troponin negative, lactate normal, normal WBC, negative chest x-ray, followed up by CT PE protocol which was grossly negative. No oxygen requirement. No fever here. Patient with multiple pulmonary comorbidities and 104 Tmax temperature at home, will discharge home with antibiotics given possible early pneumonia. 05/21 19:20 Order name: Blood Culture Adult (2) rn 05/21 19:20 Order name: CBC with Diff; Complete Time: 20: rn 05/21 19:20 Order name: CMP; Complete Time: 20:05/21 19:20 Order name: Lactate w/ 2H reflex if indic.; Complete Time: 20:37 05/21 19:20 Order name: Protime (+inr); Complete Time: 20:05/21 19:20 Order name: Ptt, Activated; Complete Time: 20:05/21 19:20 Order name: SARS RAPID; Complete Time: 20:37 05/21 19:20 Order name: Flu; Complete Time: 20:05/21 19:20 Order name: Troponin High Sensitivity; Complete Time: 20:31 rn 05/21 19:20 Order name: BNP; Complete Time: 20:05/21 20:09 Order name: Glucose, Ancillary Testing; Complete Time: 20:22 EDMS 05/21 19:20 Order name: Chest Single View XRAY; Complete Time: 20:22 rn 05/21 19:21 Order name: CT Chest For PE Angio; Complete Time: 20:46 rn 05/21 19:20 Order name: EKG; Complete Time: 19:20 rn 05/21 19:20 Order name: Accucheck; Complete Time: 20:03 rn 05/21 19:20 Order name: Cardiac monitoring; Complete Time: 19:43 rn 05/21 19:20 Order name: EKG - Nurse/Tech; Complete Time: :43 rn 05/21 19:20 Order name: IV Saline Lock - Large Bore; Complete Time: 19:53 rn 05/21 19:20 Order name: Labs collected and sent; Complete Time: :53 rn 05/21 19:20 Order name: O2 Per Protocol; Complete Time: :43 rn 05/21 19:20 Order name: O2 Sat Monitoring; Complete Time: : rn 05/21 19:20 Order name: Vital Signs; Complete Time: :53 rn EC:13 Rate is 99 beats/min. Rhythm is regular. QRS [place] is Normal. [place] interval is normal. QRS rn interval is normal. QT interval is normal. No Q waves. T waves are Normal. No ST changes noted. Clinical impression: NSR w/ Non-specific ST/T Changes. Interpreted by me. Reviewed by me. Administered Medications: 19:57 Not Given (Duplicate Order): [id number] mg IVP once rn 20:02 Drug: NS 0.9% IV 500 ml IV at bolus once Route: IV; Rate: bolus; Site: right jb4 antecubital; 20:02 Drug: Levalbuterol Inhalation 1.25 mg Inhalation once Route: Inhalation; jb4 20:59 Drug: levofloxacin IVPB 750 mg 150 ml IVPB once over 90 mins Volume: 150 ml; Route: jb4 IVPB; Infused Over: 90 mins; Site: right antecubital; 21:03 Drug: Acetaminophen PO 650 mg PO once Route: PO; jb4 22:21 Not Given (Patient Refused): ns 0.9% 500 ml IV at bolus once jb4 Disposition Summary: 05/22/23 21:19 Discharge Ordered Notes: Location: Home rn Problem: new rn Symptoms: have improved rn Condition: Stable rn Diagnosis - Fever, unspecified rn - Cough rn Followup: rn - With: Private Physician - When: 2 - 3 days - Reason: Recheck today's complaints, Re-evaluation by your physician Discharge Instructions: - Discharge Summary Sheet rn - Fever, Adult rn - Cough, Adult rn Forms: - Medication Reconciliation Form rn - Thank You Letter rn - Antibiotic rn vascular - Prescription Opioid Use rn - Patient Portal Instructions rn - Leadership Thank You Letter rn Prescriptions: - levofloxacin 750 mg Oral tablet - take 1 tablet ORAL route once daily for 7 days; 7 tablet; Refills: 0, Product rn Selection Permitted Signatures: Dispatcher [employer] EDConrado Pal MD MD rn Bryson, James RN RN jb4 Shannan Freeman RN RN nj1
--- NOTE | 2023-05-22 21:20 | ER ---
Nurse's Notes [facility] Name: Dheeraj Narvaez Age: 53 yrs Sex: Male : 1970 Arrival Date: 05/22/2023 Time: 19:06 Bed 8 Private MD: Diagnosis: Fever, unspecified;Cough Presentation: 05/21 19:16 Chief complaint: Patient states: Shortness of breath, coughing, and fever since nj1 yesterday. Coronavirus screen: Vaccine status: Patient reports being unvaccinated. Ebola Screen: Patient denies travel to an Ebola-affected area in the 21 days before illness onset. Initial Sepsis Screen: Does the patient meet any 2 criteria? HR > 90 bpm. No. Patient's initial sepsis screen is negative. Does the patient have a suspected source of infection? No. Patient's initial sepsis screen is negative. Risk Assessment: Do you want to hurt yourself or someone else? Patient reports no desire to harm self or others. Onset of symptoms was May 21, 2023. 19:16 Method Of Arrival: Ambulatory [facility] 19:16 Acuity: KAMARI 3 nj1 Historical: - Allergies: 19:20 Decadron; nj1 - PMHx: 19:20 alpha 1 deficiency (Pneumonia); aspergillis; blood infection; C DIFF; cardiomegaly; EF nj1 20%; Mx pneumothorax; pericarditis; Pneumonia; - PSHx: 19:20 L upper lobe removed; large intestine; nj1 - Immunization history:: Client reports having NOT received the Covid vaccine. - Social history:: Smoking status: Patient denies any tobacco usage or history of. - Family history:: not pertinent. - Hospitalizations: : No recent hospitalization is reported. Screenin:30 [facility] ED Fall Risk Assessment (Adult) History of falling in the last 3 months, jb4 including since admission No falls in past 3 months (0 pts) Confusion or Disorientation No (0 pts) Intoxicated or Sedated No (0 pts) Impaired Gait No (0 pts) Mobility Assist Device Used No (0 pt) Altered Elimination No (0 pt) Score/Fall Risk Level 0 - 2 = Low Risk Oriented to surroundings, Maintained a safe environment. Abuse screen: Denies threats or abuse. Nutritional screening: No deficits noted. Tuberculosis screening: No symptoms or risk factors identified. Assessment: 19:30 General: Appears in no apparent distress. uncomfortable, Behavior is calm, cooperative. jb4 Pain: Complains of pain in Body aches and chills. Pain does not radiate. Pain currently is 6 out of 10 on a pain scale. Neuro: Level of Consciousness is awake, alert, obeys commands, Oriented to person, place, time, situation. Cardiovascular: Patient's skin is warm and dry. Respiratory: Airway is patent Respiratory effort is even, unlabored, Respiratory pattern is regular, symmetrical. GI: No signs and/or symptoms were reported involving the gastrointestinal system. : No signs and/or symptoms were reported regarding the genitourinary system. EENT: No signs and/or symptoms were reported regarding the EENT system. Derm: Skin is intact, Skin is pink, warm \T\ dry. Musculoskeletal: Circulation, motion, and sensation intact. Range of motion: intact in all extremities. 20:31 Reassessment: Patient appears in no apparent distress at this time. Patient and/or jb4 family updated on plan of care and expected duration. Pain level reassessed. Patient is alert, oriented x 3, equal unlabored respirations, skin warm/dry/pink. 21:04 Reassessment: Patient appears in no apparent distress at this time. Patient and/or jb4 family updated on plan of care and expected duration. Pain level reassessed. Patient is alert, oriented x 3, equal unlabored respirations, skin warm/dry/pink. 21:20 Reassessment: 2125 D/c pending completion of IV antibiotics. jb4 22:10 Reassessment: Patient appears in no apparent distress at this time. Patient and/or jb4 family updated on plan of care and expected duration. Pain level reassessed. Patient is alert, oriented x 3, equal unlabored respirations, skin warm/dry/pink. 22:20 Reassessment: Notified provider of HR, received verbal order for another 500ml Bolus of jb4 NS. Vital Signs: 19:16 BP 138 / 104; Pulse 114; Resp 20; Temp 98.4; Pulse Ox 100% ; Weight 76.2 kg; Height 6 nj1 ft. 0 in. ; Pain 8/10; 20:00 BP 140 / 95; Pulse 100; Resp 20; Pulse Ox 99% on R/A; jb4 20:52 BP 140 / 91; Pulse 102; Resp 18; Temp 100(O); Pulse Ox 100% on R/A; jb4 22:10 BP 116 / 90; Pulse 106; Resp 15; Temp 99.1(O); Pulse Ox 97% on R/A; jb4 19:16 Body Mass Index 22.78 (76.20 kg, 182.88 cm) nj1 19:16 Pain Scale: Adult nj1 20:52 Provider notified of Temp. Recieved verbal order for 650mg of Tylenol PO. jb4 ED Course: 19:12 Patient arrived in ED. ra3 19:12 Conrado Elizabeth MD is Attending Physician. rn 19:20 Triage completed. nj1 19:21 Arm band placed on. nj1 19:30 Patient has correct armband on for positive identification. Bed in low position. Call jb4 light in reach. Side rails up X 1. Provided Education on: Plan of care. 19:35 First set of blood cultures drawn by me. jb4 19:43 SARS RAPID Sent. rv1 19:43 Flu Sent. rv1 19:45 Inserted saline lock: in right antecubital area, using aseptic technique. Blood jb4 collected. 19:45 Initial lab(s) drawn, by pa, sent to lab. Second set of blood cultures drawn by me. jb4 20:02 Jared Christianson, RN is Primary Nurse. jb4 20:03 Chest Single View XRAY In Process Unspecified. EDMS 20:42 CT Chest For PE Angio In Process Unspecified. EDMS 22:41 No provider procedures requiring assistance completed. IV discontinued, intact, jb4 bleeding controlled, No redness/swelling at site. Pressure dressing applied. Administered Medications: 19:57 Not Given (Duplicate Order): [id number] mg IVP once rn 20:02 Drug: NS 0.9% IV 500 ml IV at bolus once Route: IV; Rate: bolus; Site: right jb4 antecubital; 20:02 Drug: Levalbuterol Inhalation 1.25 mg Inhalation once Route: Inhalation; jb4 20:59 Drug: levofloxacin IVPB 750 mg 150 ml IVPB once over 90 mins Volume: 150 ml; Route: jb4 IVPB; Infused Over: 90 mins; Site: right antecubital; 21:03 Drug: Acetaminophen PO 650 mg PO once Route: PO; jb4 22:21 Not Given (Patient Refused): ns 0.9% 500 ml IV at bolus once jb4 Medication: 22:41 VIS not applicable for this client. jb4 Outcome: 21:19 Discharge ordered by . rn 22:41 Discharged to home ambulatory, jb4 :41 Condition: stable 22:41 Discharge instructions given to patient, Instructed on discharge instructions, follow up and referral plans. medication usage, Demonstrated understanding of instructions, follow-up care, medications, Prescriptions given X 1, :42 Patient left the ED. jb4 Signatures: Dispatcher [employer] EDMS Conrado Elizabeth MD MD rn Bryson, James RN RN jb4 Carmen Zaragoza1 Shannan Freeman RN RN nj1 Nazia Elizondo ra3
[2023-05-22 23:05] VITALS: BP 116/90; TEMP 99.1; O2SAT 97
--- NOTE | 2023-05-23 14:15 | EKG ---
Test Date: 2023-05-22 Test Time: 19:27:37 Grooming Assistant: RV MEASUREMENT RESULTS: Intervals: Rate: 99 NV: 188 QRSD: 90 QT: 324 QTc: 415 [place]: P: 70 NV: 188 QRS: 90 T: 92 INTERPRETIVE STATEMENTS: Normal sinus rhythm Rightward axis Borderline ECG Compared to ECG 03/08/2023 07:06:22 Right-axis deviation now present Electronically Signed On 05-23-23 14:13:31 CDT by Santiago Bartlett
== END ==
LOC: ER 19:06
DX: R50.9 Fever, unspecified (principal); R05.9 Cough, unspecified; Z11.52 Encounter for screening for COVID-19; Z88.8 Allergy status to other drugs, medicaments and biological substances; Z28.310 Unvaccinated for COVID-19
CPT/HCPCS: 93005; 87040 ×2; 85025; 36415; 85610; 82947; 83605; 85730; 84484; 80053; 83880; 87804 ×2; 71275; 71045; 96374; 99285; 87811; Q9967; J7614; J7040; J2930

== ENCOUNTER 2024-01-22 12:05 | Emergency (ER) | payer OTHER ==
[2024-01-22] MEDS ORDERED: NA CHLORIDE 0.9% 2,000 ML ONE (12:37)
[2024-01-22 12:44] LABS: Absolute Eosinophils 0.1 K/uL (0-0.5); Absolute Lymphocytes (CBC) 1.8 K/uL (0.7-4.9); Absolute Monocytes 0.2 K/uL (0.1-1.3); Basophils % 0.5 % (0-1.3); Eosinophils % 1.8 % (0-4.4); Hematocrit 36.9 % (39.6-49.0); Lymphocytes % 56.7 % (15.3-44.8); MCH 33.2 pg (27.0-35.0); MCHC 35.2 g/dL (32.0-36.0); MCV 94.1 fL (80-100); MPV 9.1 fL (7.6-11.3); Monocytes % 7.3 % (3.3-12.3); Neutrophils % 33.7 % (41.7-73.7); Nucleated Red Blood Cells % 0.1 % (0-0); Platelets 122 thou/uL (152-406); RBC Red Blood Cell Count 3.92 M/uL (4.33-5.43); Red Cell Distribution Width 12.7 % (12.1-15.2)
[2024-01-22 12:50] LABS: PT Prothrombin Time 11.6 SECONDS (9.4-12.5); PTT, Activated Partial Thromb 25.6 SECONDS (24.3-36.9); Protime INR 1.04
[2024-01-22 13:15] LABS: Albumin 3.3 g/dL (3.4-5.0); Albumin/Globulin Ratio 0.9 (1.1-1.8); Anion Gap 9.3 mEq/L (5.0-15.0); Bilirubin Total 0.6 mg/dL (0.2-1.0); Globulin 3.6 g/dL (2.3-3.5); Potassium 3.3 mEq/L (3.5-5.1); Protein, Total 6.9 g/dL (6.4-8.2); Troponin High Sensitivity 3.5 pg/mL (<58.9)
--- NOTE | 2024-01-22 13:25 | RAD REPORT ---
EXAMINATION: ONE VIEW CHEST XR CLINICAL INDICATION: Cough;Fever;SOB TECHNIQUE: Frontal chest projection is submitted. Examination is limited by patient positioning and t echnique. COMPARISON: 01/16/2024, 05/22/2023 FINDINGS: Postsurgical changes left upper lobe lobectomy. No focal infiltrate detected. The heart is normal in size. No displaced fractures identified. IMPRESSION: No acute intrathoracic abnormalities.
[2024-01-22] MEDS ORDERED: ALBUTEROL 2.5 MG/3 ML NEB SOL ONE (13:42)
[2024-01-22] MEDS ORDERED: IPRATROPIUM BROM 0.5MG/2.5ML ONE (13:43)
[2024-01-22 14:00] LABS: Differential Total Cells Count 100; Eosinophils 1 % (0-3); Lymphocytes 50 % (15-42); Monocytes 2 % (0-10); Segmented Neutrophils 47 % (40-80)
[2024-01-22 14:01] LABS: Blood Morphology Comment NOT SEEN (NOT SEEN); Platelet Estimate ADEQ
--- NOTE | 2024-01-22 14:25 | RAD REPORT ---
EXAM: CT CHEST, ABDOMEN AND PELVIS WITH CONTRAST CLINICAL INDICATION: rectal bleeding;Cough;Fever TECHNIQUE: CT chest, abdomen and pelvis was performed, following the administration of contrast, as p er department protocol. Axial, sagittal and coronal reconstructions were obtained. One or more of the following dose reduction techniques were used: Automated exposure control, adjustment of the mA a nd/or kV according to patient size, and/or iterative reconstruction. Unless otherwise specified, incidental findings do not require dedicated imaging follow-up. COMPARISON: 01/16/2024 FINDINGS: LUNGS: Postsurgical changes are present left upper lobe. Lungs are mildly emphysematous. No focal inf iltrate detected. PLEURA: No pleural effusion. No pneumothorax. Right-sided calcified pleural plaquing noted. MEDIASTINUM AND LYMPH NODES: No mediastinal mass or fluid collection. Normal size mediastinal, hilar, and axillary lymph nodes. OSSEOUS STRUCTURES AND CHEST WALL: Intact. LIVER: Normal in size and contour. No focal lesion or biliary dilatation. Grossly unremarkable gallbl adder. PANCREAS: No mass, ductal dilation, or jasson-pancreatic fluid. SPLEEN: Normal size. No focal lesion. ADRENALS: Normal; no mass. KIDNEYS: Normal size and contour. No hydronephrosis. URINARY BLADDER: Normal contour. GASTROINTESTINAL TRACT: No bowel obstruction, free air, significant free fluid or abscess. APPENDIX: Normal appendix. LYMPH NODES: No lymphadenopathy. MUSCULOSKELETAL: No acute or suspicious osseous abnormality. OTHER: IMPRESSION: No acute or significant abnormalities seen in the chest, abdomen or pelvis.
--- NOTE | 2024-01-22 15:34 | EDPHYS ---
Physician Documentation [facility] Name: Dheeraj Narvaez Age: 53 yrs Sex: Male : 1970 Arrival Date: 01/22/2024 Time: 12:05 Bed 16 Private MD: ED Physician Angel Drake HPI: 01/21 12:13 This 53 yrs old Male presents to ER via EMS with complaints of Breathing Difficulty. jh7 12:13 54-year-old male with a past medical history of left upper lobectomy, spontaneous jh7 pneumothorax x 15, and fungal pneumonia presents to the ER for worsening cough, shortness of breath, persistent fever, lower abdominal pain, and bright red blood in stool. He reports that he was discharged from here 5 to 6 days ago and prescribed antibiotics. He reports that 2 days ago his symptoms worsened and that at home he had a fever of 105.9. Reports persistent productive cough, diarrhea, and bright red blood in the toilet after a bowel movement.. Historical: - Allergies: 12:13 Decadron; ph - PMHx: 12:13 alpha 1 deficiency (Pneumonia); aspergillis; blood infection; C DIFF; cardiomegaly; EF ph 20%; Mx pneumothorax; pericarditis; Pneumonia; - PSHx: 12:13 L upper lobe removed; large intestine; ph - Immunization history:: Adult Immunizations up to date. - Infectious Disease History:: Denies. - Social history:: Smoking status: Patient denies any tobacco usage or history of. ROS: 12:13 Constitutional: Per HPI jh7 Exam: 12:13 Respiratory: the patient does not display signs of respiratory distress, Respirations: jh7 normal, symetrical, no use of accessory muscles, no grunting, no evidence of nasal flaring, no prolonged exhalations, no pursed lip breathing, no retractions, no tachypnea, Breath sounds: rales, rhonchi, that are moderate, are scattered, + upper airway congestion. 13:29 Constitutional: This is a well developed, well nourished patient who is awake, alert, jh7 and in no acute distress. Head/Face: Normocephalic, atraumatic. Eyes: Pupils equal round and reactive to light, extra-ocular motions intact. Lids and lashes normal. Conjunctiva and sclera are non-icteric and not injected. Cornea within normal limits. Periorbital areas with no swelling, redness, or edema. Neck: Trachea midline, no thyromegaly or masses palpated, and no cervical lymphadenopathy. Supple, full range of motion without nuchal rigidity, or vertebral point tenderness. No Meningismus. Cardiovascular: Regular rate and rhythm with a normal S1 and S2. No gallops, murmurs, or rubs. Normal PMI, no JVD. No pulse deficits. 13:29 Back: No spinal tenderness. No costovertebral tenderness. Full range of motion. Skin: Warm, dry with normal turgor. Normal color with no rashes, no lesions, and no evidence of cellulitis. MS/ Extremity: Pulses equal, no cyanosis. Neurovascular intact. Full, normal range of motion. Neuro: Awake and alert, GCS 15, oriented to person, place, time, and situation. Cranial nerves II-XII grossly intact. Motor strength 5/5 in all extremities. Sensory grossly intact. Cerebellar exam normal. Normal gait. 13:29 Abdomen/GI: Inspection: abdomen appears normal, Bowel sounds: normal, Palpation: soft, mild abdominal tenderness, in the left lower quadrant, Vital Signs: 12:11 BP 120 / 93; Pulse 81; Resp 18; Temp 97.6(TE); Pulse Ox 94% on R/A; Weight 70.31 kg; ph Height 6 ft. 0 in. ; 13:55 BP 116 / 82; Pulse 88; Resp 20; Pulse Ox 98% on Nebulizer Mask; ph 14:58 BP 120 / 78; Pulse 65; Resp 20; Pulse Ox 95% on R/A; ph 16:03 BP 116 / 75; Pulse 67; Resp 18; Temp 97.4; Pulse Ox 95% on R/A; ph 12:11 Body Mass Index 21.02 (70.31 kg, 182.88 cm) ph MDM: 12:12 Medical Screening Exam initiated 7 14:35 Differential diagnosis: asthma, Bronchitis CHF exacerbation, pneumonia, Pneumothorax jh7 pulmonary edema, Sepsis. Antibiotic administration: Not indicated, the patient does not have an appreciated infiltrate, the patient has a suspected viral illness. Data interpreted: Pulse oximetry: is 95 %. Interpretation: normal. The patient's pulmonary embolism risk score was calculated as follows: No Risks (0 Pts). Data reviewed: vital signs, nurses notes, lab test result(s), EKG, radiologic studies, CT scan, plain films. I considered the following discharge prescriptions or medication management in the emergency department Medications were administered in the Emergency Department. See MAR. Independent interpretation of the following test(s) in the Emergency Department X-Ray: My interpretation is no pneumonia. Counseling: I had a detailed discussion with the patient and/or guardian regarding the historical points, exam findings, and any diagnostic results supporting the discharge/admit diagnosis, to return to the emergency department if symptoms worsen or persist or if there are any questions or concerns that arise at home. Response to treatment: the patient's symptoms have mildly improved after treatment. ED course: Inform the patient that there were no infectious findings noted on his labs or imaging. The patient's oxygen saturation remained at a minimum of 95% on room air. A JEREMY was performed that revealed brown, nonmelanotic stool. Diarrhea likely due to antibiotic therapy that had just been completed. The patient remained hemodynamically stable throughout his ER stay and he was advised to return to the ER with any new or worsening symptoms. PCP follow-up advised.. 01/21 12:13 Order name: Blood Culture Adult (2) [facility] 01/21 12:13 Order name: CBC with Diff; Complete Time: 14:10 [facility] 01/21 12:13 Order name: CMP; Complete Time: 13:16 [facility] 01/21 12:13 Order name: Lactate w/ 2H reflex if indic.; Complete Time: 13:31 [facility] 01/21 12:13 Order name: Protime (+inr); Complete Time: 13:16 [facility] 01/21 12:13 Order name: Ptt, Activated; Complete Time: 13:16 [facility] 01/21 12:13 Order name: Troponin High Sensitivity; Complete Time: 13:16 [facility] 01/21 12:47 Order name: Manual Differential; Complete Time: 14:10 EDMS 01/21 12:13 Order name: Chest Single View XRAY; Complete Time: 13:31 [facility] 01/21 13:26 Order name: CT Chest, Abdomen, Pelvis - W/Contrast; Complete Time: 14:29 [facility] 01/21 12:13 Order name: EKG; Complete Time: 12:14 [facility] 01/21 12:13 Order name: Accucheck; Complete Time: 12:39 [facility] 01/21 12:13 Order name: Cardiac monitoring; Complete Time: 12:39 [facility] 01/21 12:13 Order name: EKG - Nurse/Tech; Complete Time: 12:39 [facility] 01/21 12:13 Order name: IV Saline Lock - Large Bore; Complete Time: 12:39 [facility] 01/21 12:13 Order name: Labs collected and sent; Complete Time: 12:39 [facility] 01/21 12:13 Order name: O2 Per Protocol; Complete Time: 12:40 [facility] 01/21 12:13 Order name: O2 Sat Monitoring; Complete Time: 12:40 [facility] 01/21 12:13 Order name: Vital Signs; Complete Time: 12:40 [facility] EC:36 Rate is 70 beats/min. Rhythm is regular. QRS [place] is Normal. MI interval is normal. QRS jh7 interval is normal. QT interval is normal. No Q waves. T waves are Normal. No ST changes noted. Clinical impression: Normal ECG. Administered Medications: 12:37 Drug: NS 0.9% IV (30 ml/kg) 30 ml/kg IV at bolus once; Sepsis Protocol; to be given as ph a bolus over 90 minutes Route: IV; Rate: bolus; Site: left forearm; 13:40 Follow up: Response: No adverse reaction; IV Status: Completed infusion; IV Intake: ph 1000ml 13:45 Drug: DuoNeb Nebulize (2.5 mg - 0.5 mg) 3 ml Nebulizer once Route: Nebulizer; ph 16:04 Follow up: Response: No adverse reaction ph Disposition Summary: 01/22/24 15:33 Discharge Ordered Notes: Location: Home [facility] Problem: an ongoing problem [facility] Symptoms: are unchanged [facility] Condition: Stable [facility] Diagnosis - Acute bronchitis, unspecified [facility] Followup: [facility] - With: Private Physician - When: 2 - 3 days - Reason: Recheck today's complaints Discharge Instructions: - Discharge Summary Sheet [facility] - Acute Bronchitis, Adult [facility] Forms: - Medication Reconciliation Form [facility] - Antibiotic Education [facility] - Patient Portal Instructions [facility] - Leadership Thank You Letter [facility] Prescriptions: - albuterol sulfate 90 mcg/actuation Inhalation HFA Aerosol Inhaler - inhale 1 puff INHALATION route every 4 to 6 hours As needed; 1 Each; Refills: [facility] 0, Product Selection Permitted - promethazine-DM 6.25-15 mg/5 mL Oral syrup - administer 5 milliliter ORAL route every 4 hours As needed as needed for cough; jh7 120 milliliter; Refills: 0, Product Selection Permitted - Medrol (Luis M) 4 mg Oral Tablets, Dose Pack - take 1 tablet ORAL route as directed - follow package instructions; 1 packet; 7 Refills: 0, Product Selection Permitted Signatures: Dispatcher [employer] EDMS Andreea Ruelas, RN RN ph Brittany Sanders, VP ANALYTICS VP ANALYTICS [facility] Corrections: (The following items were deleted from the chart) 12:14 12:14 BLOOD CULTURE*+BA.LAB.BRZ ordered. EDMS EDMS 12:14 12:14 CBC+H.LAB.BRZ ordered. EDMS EDMS 12:14 12:14 COMPREHENSIVE METABOLIC PANEL+C.LAB.BRZ ordered. EDMS EDMS 12:14 12:14 LACTATE+C.LAB.BRZ ordered. EDMS EDMS 12:14 12:14 PROTIME (+INR)+COAG.LAB.BRZ ordered. EDMS EDMS 12:14 12:14 PTT, ACTIVATED+COAG.LAB.BRZ ordered. EDMS EDMS 12:14 12:14 Urinalysis+U.LAB.BRZ ordered. EDMS EDMS 12:14 12:14 Troponin High Sensitivity+C.LAB.BRZ ordered. EDMS EDMS 12:14 12:13 PSHx: L upper lobe removed; ph ph 12:16 12:13 EKG - Nurse/Tech ordered. [facility] ph 13:31 12:13 Respiratory: the patient does not display signs of respiratory distress, [facility] Respirations: [facility] 15:40 12:13 Respiratory: the patient does not display signs of respiratory distress, [facility] Respirations: Breath sounds: rales, that are moderate, are scattered, are heard diffusely, [facility]
--- NOTE | 2024-01-22 15:34 | ER ---
Nurse's Notes [facility] Name: Dheeraj Narvaez Age: 53 yrs Sex: Male : 1970 Arrival Date: 01/22/2024 Time: 12:05 Bed 16 Private MD: Diagnosis: Acute bronchitis, unspecified Presentation: 01/21 12:11 Chief complaint: EMS states: Seen on Tuesday is ED, dx w/ pneumonia and prescribed ph antibiotics but breathing has not been getting better, c/o cough, fever, SOB and bright red rectal bleeding "a few days ago". Coronavirus screen: Vaccine status: Patient reports receiving the 2nd dose of the covid vaccine. Ebola Screen: No symptoms or risks identified at this time. Initial Sepsis Screen: Does the patient meet any 2 criteria? No. Patient's initial sepsis screen is negative. Does the patient have a suspected source of infection? No. Patient's initial sepsis screen is negative. Risk Assessment: Do you want to hurt yourself or someone else? Patient reports no desire to harm self or others. Onset of symptoms was January 22, 2024. 12:11 Method Of Arrival: EMS: [facility] 12:11 Acuity: KAMARI 3 ph Triage Assessment: 12:14 General: Appears in no apparent distress. uncomfortable, slender, Behavior is calm, ph cooperative, Reports fever for. Pain: Complains of pain in chest. Neuro: Level of Consciousness is awake, alert, obeys commands, Oriented to person, place, time, situation. Cardiovascular: Capillary refill < 3 seconds in bilateral fingers Patient's skin is warm and dry. Respiratory: Reports shortness of breath cough that is Onset: The symptoms/episode began/occurred approx 1 week ago, the patient has mild shortness of breath. GI: No signs and/or symptoms were reported involving the gastrointestinal system. Derm: Skin is pink, warm \\T\\ dry. Musculoskeletal: Circulation, motion, and sensation intact. Range of motion: intact in all extremities. Historical: - Allergies: 12:13 Decadron; ph - PMHx: 12:13 alpha 1 deficiency (Pneumonia); aspergillis; blood infection; C DIFF; cardiomegaly; EF ph 20%; Mx pneumothorax; pericarditis; Pneumonia; - PSHx: 12:13 L upper lobe removed; large intestine; ph - Immunization history:: Adult Immunizations up to date. - Infectious Disease History:: Denies. - Social history:: Smoking status: Patient denies any tobacco usage or history of. Screenin:55 [facility] ED Fall Risk Assessment (Adult) History of falling in the last 3 months, ph including since admission No falls in past 3 months (0 pts) Confusion or Disorientation No (0 pts) Intoxicated or Sedated No (0 pts) Impaired Gait No (0 pts) Mobility Assist Device Used No (0 pt) Altered Elimination No (0 pt) Score/Fall Risk Level 0 - 2 = Low Risk Oriented to surroundings, Maintained a safe environment, Hourly rounding (assess needs \\T\\ fall precautionary measures) done, Used ambulatory aids as needed (educated on \\T\\ assisted with). Abuse screen: Denies threats or abuse. Denies injuries from another. Nutritional screening: No deficits noted. Tuberculosis screening: No symptoms or risk factors identified. Assessment: 13:55 Reassessment: Patient appears in no apparent distress at this time. No changes from previously documented assessment. Patient and/or family updated on plan of care and expected duration. Pain level reassessed. Patient is alert, oriented x 3, equal unlabored respirations, skin warm/dry/pink. Vital Signs: 12:11 BP 120 / 93; Pulse 81; Resp 18; Temp 97.6(TE); Pulse Ox 94% on R/A; Weight 70.31 kg; ph Height 6 ft. 0 in. ; 13:55 BP 116 / 82; Pulse 88; Resp 20; Pulse Ox 98% on Nebulizer Mask; ph 14:58 BP 120 / 78; Pulse 65; Resp 20; Pulse Ox 95% on R/A; ph 16:03 BP 116 / 75; Pulse 67; Resp 18; Temp 97.4; Pulse Ox 95% on R/A; ph 12:11 Body Mass Index 21.02 (70.31 kg, 182.88 cm) ph ED Course: 12:09 Patient arrived in ED. ph 12:12 Brittany Sanders FNP [facility] 7 12:12 Angel Drake MD is Attending Physician. 7 12:13 Triage completed. ph 12:14 Arm band placed on Patient placed in an exam room, on a stretcher, on pulse oximetry. ph 12:19 Andreea Ruelas RN is Primary Nurse. ph 12:30 Initial lab(s) drawn, by me, sent to lab. First set of blood cultures drawn by me, EKG ph done, by ED staff, reviewed by Brittany GREEN. 12:40 Inserted saline lock: 18 gauge in left forearm, using aseptic technique. Blood ph collected. Flushed with 10 mL NS. 13:17 Chest Single View XRAY In Process Unspecified. EDMS 13:56 Patient has correct armband on for positive identification. Bed in low position. Call ph light in reach. Side rails up X 1. monitoring and evaluation advisor on. Pulse ox on. NIBP on. Door closed. Noise minimized. Warm blanket given. 14:08 CT Chest, Abdomen, Pelvis - W/Contrast In Process Unspecified. EDMS 16:03 No provider procedures requiring assistance completed. IV discontinued, intact, ph bleeding controlled, No redness/swelling at site. Pressure dressing applied. Administered Medications: 12:37 Drug: NS 0.9% IV (30 ml/kg) 30 ml/kg IV at bolus once; Sepsis Protocol; to be given as ph a bolus over 90 minutes Route: IV; Rate: bolus; Site: left forearm; 13:40 Follow up: Response: No adverse reaction; IV Status: Completed infusion; IV Intake: ph 1000ml 13:45 Drug: DuoNeb Nebulize (2.5 mg - 0.5 mg) 3 ml Nebulizer once Route: Nebulizer; ph 16:04 Follow up: Response: No adverse reaction ph Medication: 13:56 VIS not applicable for this client. ph Intake: 13:40 IV: 1000ml; Total: 1000ml. ph Outcome: 15:33 Discharge ordered by MD. mendoza 16:04 Discharged to home ambulatory, ph 16:04 Condition: good 16:04 Discharge instructions given to patient, Instructed on discharge instructions, follow up and referral plans. medication usage, Demonstrated understanding of instructions, follow-up care, medications, Prescriptions given X 3, 16:13 Patient left the ED. ph Signatures: Dispatcher [employer] EDMA Andreea Ruelas RN RN ph Hadash, Jennifer, FNP FNP [facility] Corrections: (The following items were deleted from the chart) 12:14 12:13 PSHx: L upper lobe removed; ph ph
[2024-01-22 19:21] VITALS: O2SAT 95
[2024-01-22 19:22] VITALS: BP 116/75; TEMP 97.4
--- NOTE | 2024-01-24 10:09 | EKG ---
Test Date: 2024-01-19 Test Time: 20:37:57 Drywall Sander: KELY MEASUREMENT RESULTS: Intervals: Rate: 55 MI: 150 QRSD: 100 QT: 402 QTc: 384 Hart: P: -23 MI: 150 QRS: 34 T: 57 INTERPRETIVE STATEMENTS: Sinus bradycardia with marked sinus arrhythmia Otherwise normal ECG Compared to ECG 01/16/2024 11:58:10 Sinus rhythm no longer present Electronically Signed On 01-24-24 10:07:23 MARBLE CEILING INSTALLER by Brett Hernández
--- NOTE | 2024-01-25 11:41 | EKG ---
Test Date: 2024-01-22 Test Time: 12:34:48 Photoengraving Etcher: AM MEASUREMENT RESULTS: Intervals: Rate: 70 CT: 172 QRSD: 98 QT: 394 QTc: 425 [place]: P: 71 CT: 172 QRS: 87 T: 88 INTERPRETIVE STATEMENTS: Normal sinus rhythm Normal ECG Compared to ECG 01/19/2024 20:37:57 Sinus bradycardia no longer present Sinus arrhythmia no longer present Electronically Signed On 01-25-24 11:35:17 COMPETITIVE INTELLIGENCE ANALYST by Brett Hernández
== END 2024-01-22 16:13 | disposition home or self-care (01) ==
LOC: ER 12:05
DX: J20.9 Acute bronchitis, unspecified (principal); Z90.2 Acquired absence of lung [part of]
CPT/HCPCS: 96365; 93005; 87040 ×2; 85025; 36415; 85610; 83605; 85730; 84484; 80053; 71260; 74177; 71045; 99285; Q9967; J7613; J7644; J7030

== ENCOUNTER 2024-02-23 11:40 | Emergency (ER) | payer OTHER ==
[2024-02-23] MEDS ORDERED: ACETAMINOPHEN 500 MG TAB ONE (12:48)
[2024-02-23] MEDS ORDERED: KETOROLAC 30 MG/ML INJ ONE (12:48)
[2024-02-23] MEDS ORDERED: methocarbamoL 500 MG TAB ONE (12:48)
--- NOTE | 2024-02-23 14:01 | RAD REPORT ---
EXAMINATION: THORACIC SPINE 3 VIEWS CLINICAL INDICATION: Male, 53 years old. back pain TECHNIQUE: AP, lateral views of the thoracic spine were obtained. COMPARISON: 01/22/2024 FINDINGS: ALIGNMENT: Mild upper thoracic levoscoliosis. BONES: Vertebral body heights are maintained. No aggressive osseous lesions. DISCS: Disc heights are maintained. SOFT TISSUE: Postsurgical changes are present left upper hemithorax. IMPRESSION: No acute thoracic spine abnormality. Mild upper thoracic levoscoliosis.
--- NOTE | 2024-02-23 14:05 | RAD REPORT ---
EXAMINATION: LUMBAR SPINE MULTIPLE VIEWS CLINICAL INDICATION: Male, 53 years old. back pain TECHNIQUE: Multiple views of the lumbar spine were obtained. COMPARISON: 01/22/2024 FINDINGS: For purposes of this dictation, it is assumed that there are 5 lumbar type vertebral bodies. ALIGNMENT: 4 mm degenerative retrolisthesis L3 on 4. BONES: Vertebral bodies are normal in height. No aggressive osseous lesions. DISCS: Mild disc thinning is seen throughout the lumbar spine. IMPRESSION: No acute lumbar spine abnormality. Mild spondylosis as detailed.
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
[2024-02-23 15:08] VITALS: BP 121/84; TEMP 98.2; O2SAT 100
== END 2024-02-23 14:39 | disposition home or self-care (01) ==
LOC: ER 11:40
DX: M54.50 Low back pain, unspecified (principal); V89.2XXA Person injured in unspecified motor-vehicle accident, traffic, initial encounter
CPT/HCPCS: 72070; 72100; 96372; 99284